=== PATIENT | male | born 1950 | race Caucasian/White ===

== ENCOUNTER 2018-05-08 13:06 | Emergency (ER) | payer MEDICARE, OTHER, SELFPAY ==
[2018-05-08 13:33] VITALS: BP 112/64; PULSE 89; RESP 12; TEMP 36.7; O2SAT 96
--- NOTE | 2018-05-08 14:40 | W.ED.GENAD ---
Discharge Plan Disposition Patient Disposition: HOME Condition: Stable Discharge Details Chief Complaint: Orthopedic Clinical Impression: Right knee sprain Primary Care Provider: Aliya Negron ED Provider: John Conte Home Meds and New Rx's Prescriptions: No Action oxybutynin chloride 5 MG tablet extended release 24hr 5 mg PO DAILY Qty: 30 RF: 2 lisinopril 20 MG tablet 20 mg PO DAILY RF: 0 multivitamin [Daily Multi-Vitamin] 1 EACH tablet 1 tab PO DAILY RF: 0 aspirin [Aspir-81] 81 MG tablet,delayed release (DR/EC) 81 mg PO DAILY RF: 0 ascorbic acid (vitamin C) [Vitamin C] 500 MG tablet 2 tab PO DAILY RF: 0 naproxen sodium [Aleve] 220 MG tablet 220 mg PO DAILY PRNRF: 0 cholecalciferol (vitamin D3) [Vitamin D3] 1,000 UNIT capsule 1 cap PO DAILY RF: 0 Discharge Instructions Instructions: Knee Sprain (ED) Additional Instructions: Please wear the hinged knee brace at any time that you are going to be performing activity and you may take sngm-gwj-ayqjxle pain medication as needed for discomfort. If not improving over the next 2 weeks please call orthopedic office for arrangement of follow-up appointment. Referrals: Armond Sanchez MD [ [facility] STAFF PHYSICIAN] - 2 weeks (if not improving) Discharge Data Discharge Date/Time-TO BE ENTERED AT DEPARTURE: 05/08/18 15:06 Medical Decision Making Patient presenting to the ED for CC of right knee pain. Patient reports that he was pushing a a wheel barrel of wood when he felt a pop in the back of his knee. Instantly he started having discomfort and painful gait/weightbearing. Physical exam shows tenderness to palpation of lateral posterior knee with painful response up into the hands otherwise physical exam shows no ligamentous laxity, no muscular mass or ecchymosis, no crepitus, and full range of motion and appropriate strength. Concern for knee sprain with regards to possible involvement of distal end of bicep femoris. Patient denies any blunt injury or trauma and there is no palpable deformity noted to the posterior thigh. Patient diagnosed with knee sprain and placed in a hinged knee brace and encouraged to rest for the next 2-3 days and then advance activity as tolerated. Patient to follow-up with orthopedist for reassessment. Patient states that she is seeing Dr. Sanchez in the past and prefers follow-up with him. Patient was not informed to call their office in 2 weeks if not improving. After discussion of diagnosis and plan of care patient has no further needs, questions, or concerns and states clear understanding to return to the emergency department for any worsening symptoms. HPI General Mode of arrival: ambulatory. Date/Time Provider Initiated Documentation: 05/08/18 13:42. Limitations to Documentation: no limitations. Information obtained by: patient. History of Present Illness 68 year old M presents to the emergency department with the chief complaint of right knee injury, described as moderate, with intensity rated at 5. Quality is described as aching, and is localized to the right and lower extremity. Patient proximal. Patient started experiencing this hour(s) (2) and it has been constant. No relieving factors improve symptom(s), No exacerbating factors reported . Patient notes no other symptoms.. Patient did receive the following treatments prior to arrival, none Related Data Home Medications Medication Instructions Recorded Confirmed ascorbic acid (vitamin C) [Vitamin 2 tab PO DAILY 03/09/14 05/08/18 C] aspirin [Aspir-81] 81 mg PO DAILY 03/09/14 05/08/18 lisinopril 20 mg PO DAILY 03/09/14 05/08/18 multivitamin [Daily Multi-Vitamin] 1 tab PO DAILY 03/09/14 05/08/18 naproxen sodium [Aleve] 220 mg PO DAILY PRN 03/09/14 05/08/18 cholecalciferol (vitamin D3) 1 cap PO DAILY 06/25/15 05/08/18 [Vitamin D3] oxybutynin chloride 5 mg PO DAILY #30 tab-cap 08/22/16 05/08/18 Allergies Allergy/AdvReac Type Severity Reaction Status Date / Time No Known Allergies Allergy Unverified 05/08/18 13:36 General Stated Complaint: Orthopedic SAIMA: 4 Review of Systems Constitutional Denies body ache(s), Denies chills and Denies fever(s) Cardiovascular Denies chest pain and Denies dyspnea Respiratory Denies dyspnea Musculoskeletal Reports as per HPI, Denies numbness, Denies stiffness and Denies tingling Neurologic Denies numbness and Denies tingling PFSH Medical History Erectile dysfunction History of prostate cancer Hyperlipidemia Hypertension Obesity (BMI 30-39.9) Social History Smoking/Tobacco Use Status: Former Tobacco Use Surgical History Colonoscopy - IV Sedation Exam Const General: cooperative, healthy appearing, comfortable and no acute distress Nutritional Appearance: average body habitus Orientation: alert, awake and oriented x3 Limitations: mental status not altered Resp Effort & Inspection: normal respiratory effort and able to speak in complete sentences Cardio Rate: regular rate Rhythm: regular rhythm Extrem Right lower extremity: normal capillary refill, no joint enlargement, hip/thigh Details: tenderness Location: of the mid upper leg Location: laterally; no swelling and knee Details: tenderness Location: of the popliteal fossa, normal ROM, knee ligament exam normal, Richard's Test Details: negative medially and laterally and Apley's Test Details: negative; no swelling; no edema Course Vital Signs Temperature 36.7 C 05/08/18 13:33 Pulse 89 05/08/18 13:33 Respiratory Rate 12 05/08/18 13:33 Blood Pressure 112/64 05/08/18 13:33 Pulse Oximetry 96 05/08/18 13:33 Temperature 36.7 C 05/08/18 13:33 Temperature Source Temporal Artery Scan 05/08/18 13:33 Pulse 89 05/08/18 13:33 Respiratory Rate 12 05/08/18 13:33 Respiratory Effort Non-Labored 05/08/18 13:35 Blood Pressure 112/64 05/08/18 13:33 Pulse Oximetry 96 05/08/18 13:33 Oxygen Delivery Method Room Air 05/08/18 13:33 Oxygen Flow Rate 0 05/08/18 13:33 Pain Level 8 05/08/18 13:33
--- NOTE | 2018-05-08 14:44 | ED.GENADUL_ITS ---
Discharge Plan Disposition Patient Disposition: HOME Condition: Stable Discharge Details Chief Complaint: Orthopedic Clinical Impression: Right knee sprain Primary Care Provider: Aliya Negron ED Provider: John Conte Home Meds and New Rx's Prescriptions: No Action oxybutynin chloride 5 MG tablet extended release 24hr 5 mg PO DAILY Qty: 30 RF: 2 lisinopril 20 MG tablet 20 mg PO DAILY RF: 0 multivitamin [Daily Multi-Vitamin] 1 EACH tablet 1 tab PO DAILY RF: 0 aspirin [Aspir-81] 81 MG tablet,delayed release (DR/EC) 81 mg PO DAILY RF: 0 ascorbic acid (vitamin C) [Vitamin C] 500 MG tablet 2 tab PO DAILY RF: 0 naproxen sodium [Aleve] 220 MG tablet 220 mg PO DAILY PRNRF: 0 cholecalciferol (vitamin D3) [Vitamin D3] 1,000 UNIT capsule 1 cap PO DAILY RF: 0 Discharge Instructions Instructions: Knee Sprain (ED) Additional Instructions: Please wear the hinged knee brace at any time that you are going to be performing activity and you may take wbgz-psf-kvgsnyh pain medication as needed for discomfort. If not improving over the next 2 weeks please call orthopedic office for arrangement of follow-up appointment. Referrals: Armond Sanchez MD [ [facility] STAFF PHYSICIAN] - 2 weeks (if not improving) Discharge Data Discharge Date/Time-TO BE ENTERED AT DEPARTURE: 05/08/18 15:06 Medical Decision Making Patient presenting to the ED for CC of right knee pain. Patient reports that he was pushing a a wheel barrel of wood when he felt a pop in the back of his knee. Instantly he started having discomfort and painful gait/weightbearing. Physical exam shows tenderness to palpation of lateral posterior knee with painful response up into the hands otherwise physical exam shows no ligamentous laxity, no muscular mass or ecchymosis, no crepitus, and full range of motion and appropriate strength. Concern for knee sprain with regards to possible involvement of distal end of bicep femoris. Patient denies any blunt injury or trauma and there is no palpable deformity noted to the posterior thigh. Patient diagnosed with knee sprain and placed in a hinged knee brace and encouraged to rest for the next 2-3 days and then advance activity as tolerated. Patient to follow-up with orthopedist for reassessment. Patient states that she is seeing Dr. Sanchez in the past and prefers follow-up with him. Patient was not informed to call their office in 2 weeks if not improving. After discussion of diagnosis and plan of care patient has no further needs, questions, or concerns and states clear understanding to return to the emergency department for any worsening symptoms. HPI General Mode of arrival: ambulatory . Date/Time Provider Initiated Documentation: 05/08/18 13:42 . Limitations to Documentation: no limitations . Information obtained by: patient . History of Present Illness 68 year old M presents to the emergency department with the chief complaint of right knee injury, described as moderate, with intensity rated at 5. Quality is described as aching, and is localized to the right and lower extremity. Patient proximal. Patient started experiencing this hour(s) (2) and it has been constant. No relieving factors improve symptom(s), No exacerbating factors reported . Patient notes no other symptoms.. Patient did receive the following treatments prior to arrival, none Related Data Home Medications Medication Instructions Recorded Confirmed ascorbic acid (vitamin C) [Vitamin 2 tab PO DAILY 03/09/14 05/08/18 C] aspirin [Aspir-81] 81 mg PO DAILY 03/09/14 05/08/18 lisinopril 20 mg PO DAILY 03/09/14 05/08/18 multivitamin [Daily Multi-Vitamin] 1 tab PO DAILY 03/09/14 05/08/18 naproxen sodium [Aleve] 220 mg PO DAILY PRN 03/09/14 05/08/18 cholecalciferol (vitamin D3) 1 cap PO DAILY 06/25/15 05/08/18 [Vitamin D3] oxybutynin chloride 5 mg PO DAILY #30 tab-cap 08/22/16 05/08/18 Allergies Allergy/AdvReac Type Severity Reaction Status Date / Time No Known Allergies Allergy Unverified 05/08/18 13:36 General Stated Complaint: Orthopedic SAIMA: 4 Review of Systems Constitutional Denies body ache(s), Denies chills and Denies fever(s) Cardiovascular Denies chest pain and Denies dyspnea Respiratory Denies dyspnea Musculoskeletal Reports as per HPI, Denies numbness, Denies stiffness and Denies tingling Neurologic Denies numbness and Denies tingling PFSH Medical History Erectile dysfunction History of prostate cancer Hyperlipidemia Hypertension Obesity (BMI 30-39.9) Social History Smoking/Tobacco Use Status: Former Tobacco Use Surgical History Colonoscopy - IV Sedation Exam Const General: cooperative, healthy appearing, comfortable and no acute distress Nutritional Appearance: average body habitus Orientation: alert, awake and oriented x3 Limitations: mental status not altered Resp Effort & Inspection: normal respiratory effort and able to speak in complete sentences Cardio Rate: regular rate Rhythm: regular rhythm Extrem Right lower extremity: normal capillary refill, no joint enlargement, hip/thigh Details: tenderness Location: of the mid upper leg Location: laterally; no swelling and knee Details: tenderness Location: of the popliteal fossa, normal ROM, knee ligament exam normal, Richard's Test Details: negative medially and laterally and Apley's Test Details: negative; no swelling; no edema Course Vital Signs Temperature 36.7 C 05/08/18 13:33 Pulse 89 05/08/18 13:33 Respiratory Rate 12 05/08/18 13:33 Blood Pressure 112/64 05/08/18 13:33 Pulse Oximetry 96 05/08/18 13:33 Temperature 36.7 C 05/08/18 13:33 Temperature Source Temporal Artery Scan 05/08/18 13:33 Pulse 89 05/08/18 13:33 Respiratory Rate 12 05/08/18 13:33 Respiratory Effort Non-Labored 05/08/18 13:35 Blood Pressure 112/64 05/08/18 13:33 Pulse Oximetry 96 05/08/18 13:33 Oxygen Delivery Method Room Air 05/08/18 13:33 Oxygen Flow Rate 0 05/08/18 13:33 Pain Level 8 05/08/18 13:33
== END 2018-05-08 15:06 | disposition home or self-care (01) ==
PROVIDERS: Emergency Provider Nurse Practitioner Family
DX: S83.8X1A Sprain of other specified parts of right knee, initial encounter (principal); X50.0XXA Overexertion from strenuous movement or load, initial encounter; I10 Essential (primary) hypertension
CPT/HCPCS: 29505; 99283; L1810

== ENCOUNTER 2019-01-27 13:53 | Outpatient (REF) | payer MEDICARE, OTHER, SELFPAY ==
[2019-01-27 15:18] LABS: Anion Gap 12.4 mmol/L (3-11); BUN 16 mg/dL (7-18); CO2 24.6 mmol/L (21.0-32.0); CREATININE 0.81 mg/dL (0.70-1.30); Calcium 9.2 mg/dL (8.5-10.1); Chloride 103 mmol/L (98-107); Glucose 82 mg/dL (70-100); Potassium 4.6 mmol/L (3.5-5.1); Sodium 140 mmol/L (136-145)
[2019-01-28 09:53] LABS: PSA, Diagnostic <0.1 ng/ml (0-6.5)
== END 2019-01-27 14:13 ==
LOC: NCHCN 13:53
PROVIDERS: PCP Internal Medicine; Visit Provider Internal Medicine
DX: I10 Essential (primary) hypertension (principal); Z85.46 Personal history of malignant neoplasm of prostate
CPT/HCPCS: 80048; 84153

== ENCOUNTER 2020-01-26 14:44 | Outpatient (REF) | payer MEDICARE, OTHER, SELFPAY ==
[2020-01-26 21:48] LABS: ALT 32 U/L (16-63); AST 23 U/L (15-37); Albumin 4.3 g/dL (3.4-5.0); Alkaline Phosphatase 84 U/L (46-116); Anion Gap 7.5 mmol/L (3-11); BUN 12 mg/dL (7-18); Bilirubin, Total 0.7 mg/dL (0.2-1.0); CO2 29.5 mmol/L (21.0-32.0); CREATININE 0.95 mg/dL (0.70-1.30); Calcium 9.4 mg/dL (8.5-10.1); Calculated LDL 133 mg/dL (<100); Chloride 102 mmol/L (98-107); Cholesterol 216 mg/dL (<200); Glucose 100 mg/dL (74-106); HDL Cholesterol 71 mg/dL (40-60); Potassium 5.5 mmol/L (3.5-5.1); Sodium 139 mmol/L (136-145); Total Protein 7.2 g/dL (6.4-8.2); Triglyceride 64 mg/dL (<150)
[2020-01-28 08:43] LABS: PSA, Screening <0.1 ng/mL (0.0-6.5)
== END 2020-01-26 15:04 ==
LOC: NCHCN 14:44
PROVIDERS: PCP Internal Medicine; Visit Provider Internal Medicine
DX: E78.5 Hyperlipidemia, unspecified (principal); I10 Essential (primary) hypertension; K62.7 Radiation proctitis; Z12.5 Encounter for screening for malignant neoplasm of prostate
CPT/HCPCS: 80053; 80061; 84153

== ENCOUNTER 2020-04-12 10:07 | Outpatient (REF) | payer MEDICARE, OTHER, SELFPAY ==
[2020-04-12 21:00] LABS: Calculated LDL 51 mg/dL (<100); Cholesterol 144 mg/dL (<200); HDL Cholesterol 82 mg/dL (40-60); Triglyceride 56 mg/dL (<150)
== END 2020-04-12 10:27 ==
LOC: NCHCN 10:07
PROVIDERS: PCP Internal Medicine; Visit Provider Internal Medicine
DX: E78.5 Hyperlipidemia, unspecified (principal)
CPT/HCPCS: 80061

== ENCOUNTER 2020-08-06 10:16 | Outpatient (REF) | payer MEDICARE, OTHER, SELFPAY ==
[2020-08-06 14:18] LABS: Potassium 4.3 mmol/L (3.5-5.1)
== END 2020-08-06 10:36 ==
LOC: NCHCN 10:16
PROVIDERS: PCP Internal Medicine; Visit Provider Internal Medicine
DX: E87.5 Hyperkalemia (principal)
CPT/HCPCS: 84132

== ENCOUNTER 2021-01-20 09:04 | Outpatient (REF) | payer MEDICARE, OTHER, SELFPAY ==
[2021-01-20 13:34] LABS: Anion Gap 13.6 mmol/L (3-11); BUN 14 mg/dL (7-18); CO2 23.4 mmol/L (21.0-32.0); CREATININE 0.8 mg/dL (0.70-1.30); Calcium 9.1 mg/dL (8.5-10.1); Chloride 102 mmol/L (98-107); Glucose 80 mg/dL (74-106); Potassium 4.8 mmol/L (3.5-5.1); Sodium 139 mmol/L (136-145)
[2021-01-20 21:53] LABS: PSA, Screening <0.1 ng/mL (0.0-6.5)
== END 2021-01-20 09:05 | disposition home or self-care (01) ==
LOC: NCHCN 09:04
PROVIDERS: PCP Internal Medicine; Visit Provider Internal Medicine
DX: I10 Essential (primary) hypertension (principal); Z85.46 Personal history of malignant neoplasm of prostate
CPT/HCPCS: 80048; 84153

== ENCOUNTER → 2022-02-06 00:52 | Outpatient (CLI) | payer MEDICARE, OTHER, SELFPAY ==
--- NOTE | 2022-02-06 | DI.US_ITS ---
Exam(s) US RENAL EXAM: US RENAL CLINICAL HISTORY: HX HEMATURIA, Z87.448, HEMATURIA, R31.9, PROSTATE CA HX, Z85.46. TECHNIQUE: Boo scale, color and spectral Doppler were used. FINDINGS: Renal size in cm: Right: 10.5 left: 11.7 Echogenicity: Normal Hydronephrosis: No Cyst or mass: No Nephrolithiasis: No Bladder:Normal Prevoid vol:217 cc Postvoid vol:5 cc Prostate not visualized. IMPRESSION: No evidence of hydronephrosis, renal calculi or mass. DATA REPOSITORY:
== END ==
PROVIDERS: PCP Internal Medicine; Visit Provider Nurse Practitioner Family
DX: R39.11 Hesitancy of micturition (principal); Z85.46 Personal history of malignant neoplasm of prostate; Z87.448 Personal history of other diseases of urinary system
CPT/HCPCS: 76770

== ENCOUNTER → 2022-02-27 09:05 | Outpatient (BNVA) | payer MEDICARE, OTHER, SELFPAY | PROVIDERS: PCP Internal Medicine; Referring Provider Internal Medicine; Visit Provider Nurse Practitioner Gerontology | DX: R31.0 Gross hematuria (principal); R39.11 Hesitancy of micturition; R32 Unspecified urinary incontinence; Z85.46 Personal history of malignant neoplasm of prostate | CPT/HCPCS: 81003; 99205 ==

== ENCOUNTER 2022-02-28 09:42 | Outpatient (REF) | payer MEDICARE, OTHER, SELFPAY ==
[2022-02-28 14:50] LABS: Abs Immature Grans 0.01 10^3/uL (0.0-0.06); Absolute Basophil Count 0.08 10^3/uL (0.0-0.2); Absolute Eosinophil Count 0.24 10^3/uL (0.0-0.7); Absolute Lymphocyte Count 0.93 10^3/uL (1.2-3.4); Absolute Monocyte Count 0.61 10^3/uL (0.1-0.8); Absolute Neutrophil Count 2.95 10^3/uL (1.2-6.7); Basophils % 1.7; HCT 44.7 % (40.0-50.0); HGB 14.9 g/dL (13.5-17.5); Immature Grans % 0.2; Lymphocytes % 19.3; MCH 32.3 pg (27.0-33.0); MCHC 33.3 % (32.0-36.0); MCV 97 fL (80-95); MPV 10.7 fL (8.0-11.0); Monocytes % 12.7; Neutrophils % 61.1; Platelet Count 161 10^3/uL (130-400); RBC 4.62 10^6/uL (4.36-5.78); RDW 14.5 % (11.8-14.1); RDW-SD 51.4 fL; WBC 4.82 10^3/uL (4.4-10.8)
[2022-02-28 15:05] LABS: Anion Gap 11.7 mmol/L (3-11); BUN 20 mg/dL (7-18); CO2 24.3 mmol/L (21.0-32.0); CREATININE 0.7 mg/dL (0.70-1.30); Calcium 8.8 mg/dL (8.5-10.1); Chloride 103 mmol/L (98-107); Glucose 88 mg/dL (74-106); Potassium 5.2 mmol/L (3.5-5.1); Sodium 139 mmol/L (136-145)
[2022-02-28 23:29] LABS: PSA, Screening <0.1 ng/mL (<=6.5)
== END 2022-02-28 09:43 | disposition home or self-care (01) ==
LOC: NCHCN 09:42
PROVIDERS: PCP Internal Medicine; Visit Provider Internal Medicine
DX: I10 Essential (primary) hypertension (principal); Z85.46 Personal history of malignant neoplasm of prostate; R31.9 Hematuria, unspecified; F34.1 Dysthymic disorder; F10.10 Alcohol abuse, uncomplicated; Z12.5 Encounter for screening for malignant neoplasm of prostate
CPT/HCPCS: 80048; 84153; 85025

== ENCOUNTER 2022-03-14 14:41 | Outpatient (REF) | payer MEDICARE, OTHER, SELFPAY ==
[2022-03-14 13:40] LABS: Source Nasal/Nares
[2022-03-14 15:41] LABS: COVID-19 PCR Negative (Negative)
== END 2022-03-14 14:42 | disposition home or self-care (01) ==
LOC: LBN 14:41
PROVIDERS: PCP Internal Medicine; Visit Provider Urology
DX: Z20.822 Contact with and (suspected) exposure to COVID-19 (principal)
CPT/HCPCS: 87635

== ENCOUNTER 2022-03-16 07:47 | Day surgery (SDC) | payer MEDICARE, OTHER, SELFPAY ==
[2022-03-16 08:06] VITALS: BP 159/83; PULSE 66; RESP 16; TEMP 36.6; O2SAT 99
[2022-03-16] MEDS: Lactated Ringers 1,000 ML 80 ML IV (08:34)
--- NOTE | 2022-03-16 08:54 | W.ANESPOSTOP ---
Postoperative Evaluation Date, Time and Location Date Performed: 03/16/22 Time Performed: 08:55 Patient Location: Day Surgery Unit Vital Signs Most Recent Imported Vital Signs: Most Recent Vital Signs Temp Pulse Resp BP Pulse Ox 36.6 C 66 16 159/83 H 99 03/16/22 08:06 03/16/22 08:06 03/16/22 08:06 03/16/22 08:06 03/16/22 08:06 Pain Score Most Recent Pain Score: Most Recent Pain Score Pain Level 0 03/16/22 08:06 Assessment Mental Status: Awake (Alert & Oriented to Patient Baseline) Airway and Respiratory Function: Patent airway with normal (patient baseline) respiratory exam Cardiovascular Function: Hemodynamically Stable Hydration Status: Adequately Hydrated Nausea & Vomiting: No Nausea or Vomiting Pain: Pt. Denies Any Pain Peripheral Nerve Block: Patient did not receive a nerve block Postoperative Comments:: did not convey PHYLLIS PRE op will add to problem list
--- NOTE | 2022-03-16 09:37 | W.PM.HP.N ---
Date of service: 03/16/22 Time of Service: 09:50 Assessment and Plan Assessment and plan (1) Hematuria: Status: Acute (2) Prostate cancer: Status: Chronic Assessment and plan: We will complete his hematuria work-up with a cystoscopy and retrograde pyelogram. We will be prepared to evacuate any clots in the bladder or resect any suspicious lesions. History of Present Illness History of Present Illness Chief Complaint: Hematuria Narrative: This is a 72-year-old gentleman who has a history of prostate cancer. He was treated with external beam radiation. He has had no signs of recurrence based on PSA levels. He has had intermittent gross hematuria. He had a negative hematuria work-up about 6 years ago. 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 He recently had an episode of gross hematuria with clots. The hematuria has subsequently subsided. He has been evaluated with a renal ultrasound which showed no kidney abnormalities. He presents now for cystoscopy and bilateral retrograde pyelogram with possible transurethral resection of any visible bladder or prostate lesion. Review of Systems Narrative: No fevers or chills Wears glasses. No vision change or dysphasia No diabetes or thyroid No shortness of breath, cough or hemoptysis No chest pain or palpitations No nausea, vomiting, hepatitis, ulcers, jaundice No seizures, strokes or peripheral neuropathy No bleeding disorders or anemia Arthralgia and chronic back pain. No gout PFSH All Active Problems Prostate cancer (Chronic) Situational anxiety (Acute) Dysthymia (Acute) Generalized social phobia (Acute) Alcohol abuse (Chronic) Chronic back pain (Acute) Sleep disturbance (Acute) Urinary incontinence (Acute) Rotator cuff syndrome (Acute) Nocturnal leg cramps (Acute) Memory impairment (Acute) Orthostasis (Acute) Hematuria (Acute) Urinary hesitancy (Acute) Screening for colorectal cancer (Acute) Medical History Erectile dysfunction History of prostate cancer Hyperlipidemia Hypertension Obesity (BMI 30-39.9) Surgical History Colonoscopy - IV Sedation Social History Smoking/Tobacco Use Status: Former Tobacco Use Quit Date: 07/23/68 Smoking risk assessment performed?: Yes Alcohol Intake: current Alcohol Intake frequency: 3 or more drinks per day Drug use: Never Substance use type: does not use Do you feel safe at home: Yes Do you feel safe in your relationship?: Yes Meds Allergies and Home Medications Allergies Allergy/AdvReac Type Severity Reaction Status Date / Time No Known Allergies Allergy Unverified 03/16/22 07:59 Home Medications Medication Instructions Recorded Confirmed Type aspirin 81 mg tablet,delayed 81 mg PO DAILY 03/09/14 03/16/22 History release (Aspir-) multivitamin (Daily Multi-Vitamin 1 tab PO DAILY 03/09/14 03/16/22 History tablet) naproxen sodium 220 mg tablet 220 mg PO DAILY PRN 03/09/14 03/16/22 History (Aleve) cholecalciferol (vitamin D3) 25 1 cap PO DAILY 06/25/15 03/16/22 History mcg (1,000 unit) capsule (Vitamin D3) atorvastatin 20 mg tablet 20 mg PO HS 02/09/22 03/16/22 History downiay-iqyudzsjg-utje tablet 1 tab PO QDAY 02/09/22 03/16/22 History oxybutynin chloride 10 mg 10 mg PO DAILY 02/09/22 03/16/22 History tablet,extended release 24 hr triamcinolone acetonide 0.1 % 1 applic topical BID 02/09/22 03/16/22 History topical cream lisinopril 20 mg tablet 20 mg PO HS 02/27/22 03/16/22 History mirabegron 50 mg tablet,extended 50 mg PO DAILY #28 tabs 02/27/22 03/16/22 Rx release 24 hr (Myrbetriq) Exam Const General: cooperative Neck Neck: supple Resp Effort & Inspection: normal respiratory effort Auscultation: clear to auscultation bilaterally Cardio Rate: regular rate Rhythm: regular rhythm GI Palpation: soft and no masses Neuro General: patient alert, patient awake and patient oriented x3 Results Last Vital Signs Temp 36.6 C 03/16/22 08:06 Pulse 66 03/16/22 08:06 Resp 16 03/16/22 08:06 BP 159/83 H 03/16/22 08:06 Pulse Ox 99 03/16/22 08:06
--- NOTE | 2022-03-16 09:55 | W.ANESPRE ---
General Info Date of Service Date Performed: 03/16/22 Height: 5 ft 8 in Weight: 95 kg Body Mass Index (BMI): 31.8 Surgical Procedure: Operation Date: 03/16/22 09:55 Proposed Procedure Side Surgeon p Cysto/B/L Retrograde/? Transurethral Resection Bladder Tumor or Clot Evac Harvinder Hudson MD Meds Allergies and Home Medications Allergies Allergy/AdvReac Type Severity Reaction Status Date / Time No Known Allergies Allergy Unverified 03/16/22 07:59 Home Medication Medication Instructions Recorded aspirin 81 mg tablet,delayed 81 mg PO DAILY 03/09/14 release (Aspir-) multivitamin (Daily Multi-Vitamin 1 tab PO DAILY 03/09/14 tablet) naproxen sodium 220 mg tablet 220 mg PO DAILY PRN 03/09/14 (Aleve) cholecalciferol (vitamin D3) 25 1 cap PO DAILY 06/25/15 mcg (1,000 unit) capsule (Vitamin D3) atorvastatin 20 mg tablet 20 mg PO HS 02/09/22 paccodp-yebrddbjs-lrjx tablet 1 tab PO QDAY 02/09/22 oxybutynin chloride 10 mg 10 mg PO DAILY 02/09/22 tablet,extended release 24 hr triamcinolone acetonide 0.1 % 1 applic topical BID 02/09/22 topical cream lisinopril 20 mg tablet 20 mg PO HS 02/27/22 mirabegron 50 mg tablet,extended 50 mg PO DAILY #28 tabs 02/27/22 release 24 hr (Myrbetriq) Current Visit Medications: Current Medications Generic Name Dose Route Start Last Admin Trade Name Freq PRN Reason Stop Dose Admin Ringer's Solution 1,000 mls @ 80 mls/hr 03/16/22 06:00 03/16/22 08:34 IV 04/14/22 23:59 80 mls/hr INFUSION ELEANOR Administration Cefazolin Sodium/Dextrose 2 gm in 50 mls @ 100 mls/hr 03/16/22 06:00 Ancef Duplex IVPB 03/16/22 16:00 PREOP ELEANOR IV Miscellaneous Supplies 1 each 03/16/22 06:00 Iv Access IV 04/14/22 23:59 DIRECTED ELEANOR Sodium Chloride 0 ml 03/16/22 06:00 Normal Saline Flush 10 Ml Syr IV 04/14/22 23:59 PRN PRN Sodium Chloride 0 ml 03/16/22 06:00 Normal Saline 10 Ml Vial IJ 04/14/22 23:59 DIRECTED PRN Sterile Water 0 ml 03/16/22 06:00 Water,Injection,Sterile 10 Ml Vial IJ 04/14/22 23:59 DIRECTED PRN PFSH Active Problems Active Problems: Problem Status Onset Code Prostate cancer C61 Situational anxiety F41.8 Dysthymia F34.1 Generalized social phobia 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 Alcohol abuse F10.10 Chronic back pain M54.9, G89.29 Sleep disturbance G47.9 Urinary incontinence R32 Rotator cuff syndrome M75.100 Nocturnal leg cramps G47.62 Memory impairment R41.3 Orthostasis I95.1 Hematuria R31.9 Urinary hesitancy R39.11 Screening for colorectal cancer Z12.11, Z12.12 Medical History Medical History Erectile dysfunction History of prostate cancer Hyperlipidemia Hypertension Obesity (BMI 30-39.9) Surgical History Surgical History Colonoscopy - IV Sedation Tobacco Smoking/Tobacco Use Status: Former Tobacco Use Alcohol Alcohol Intake: current Alcohol intake frequency: 3 or more drinks per day Substance Use Substance use: Never Substance use type: does not use Vital Signs and Lab Results Vital Signs Most Recent Vital Signs in EMR: Most Recent Vital Signs Temp Pulse Resp BP Pulse Ox 36.6 C 66 16 159/83 H 99 03/16/22 08:06 03/16/22 08:06 03/16/22 08:06 03/16/22 08:06 03/16/22 08:06 Lab Results Blood Type / Crossmatch: No Data to Display Complete Blood Count: White Blood Count 4.82 10^3/uL (4.4-10.8) 02/28/22 09:15 Red Blood Count 4.62 10^6/uL (4.36-5.78) 02/28/22 09:15 Hemoglobin 14.9 g/dL (13.5-17.5) 02/28/22 09:15 Hematocrit 44.7 % (40.0-50.0) 02/28/22 09:15 Platelet Count 161 10^3/uL (130-400) 02/28/22 09:15 Complete Metabolic Panel: Sodium Level 139 mmol/L (136-145) 02/28/22 09:15 Potassium Level 5.2 mmol/L (3.5-5.1) H 02/28/22 09:15 Chloride Level 103 mmol/L (98-107) 02/28/22 09:15 Carbon Dioxide Level 24.3 mmol/L (21.0-32.0) 02/28/22 09:15 Blood Urea Nitrogen 20 mg/dL (7-18) H 02/28/22 09:15 Creatinine 0.7 mg/dL (0.70-1.30) 02/28/22 09:15 Estimated GFR/1.73 m2 >= 60.00 (mL/min/1.73m2) 02/28/22 09:15 Calcium Level 8.8 mg/dL (8.5-10.1) 02/28/22 09:15 Glucose Level 88 mg/dL (74-106) 02/28/22 09:15 Liver Function Panel: No Data to Display Coagulation Panel: No Data to Display Cardiac Panel: No Data to Display Arterial Blood Gas: No Data to Display Venous Blood Gas: No Data to Display Pancreas Panel: No Data to Display Thyroid Panel: No Data to Display Infectious Disease: Coronavirus (COVID-19)(PCR) Negative (Negative) 03/14/22 10:50 Coronavirus 2019 Source Nasal/Nares 03/14/22 10:50 Blood Cultures: No Data to Display Toxicology Panel: No Data to Display Anesthesia Assessment and Plan Anesthesia History Personal History: No History of Anesthesia Complications Family History: No Family History of Anesthesia Complications Exercise Tolerance Exercise Tolerance: Metabolic Equivalents>4 Pertinent Negatives Pertinent Negatives: No Symptoms of GERD, No Major Cardiovascular Symptoms or Complaints, No Major Pulmonary Symptoms or Complaints (Quit smoking 50 years ago) and No History of CVA/TIA Cardiac & Pulmonary Exam Cardiac Exam: Normal S1/S2 Heart Sounds Pulmonary Exam: Clear Bilateral Breath Sounds Implantable Cardiac Device Does patient have a Pacemaker or an ICD?: No Airway Exam Known Difficult Airway: No Mallampati Class: 1 Mouth Opening: Normal (> 3cm) Thyromental Distance: Greater than 3 cm Facial Hair: Full Horan Neck Range of Motion: Full ROM Neck Circumference: Normal Teeth Condition: Normal Dentition ASA Classification ASA Score: ASA 2 Emergency Case?: No NPO Status NPO Status: NPO Clears >2 hours, Solids >8 hours Anesthesia Plan Resuscitation Status: Full Code Anesthesia Technique: General Anesthesia Airway Planned: Natural Airway Monitors Used: Standard Monitors
[2022-03-16 09:58] VITALS: BMI 31.8
[2022-03-16] MEDS: ceFAZolin 2 GM/50 ML BAG IVPB (10:20)
[2022-03-16] MEDS: Lidocaine 2% Jelly 6 ML SYR (10:27)
--- NOTE | 2022-03-16 10:42 | W.PM.DSUDISC ---
Discharge Plan Disposition Patient Disposition: HOME Condition: Good Discharge Details Reason For Visit: hematuria Attending Provider: Harvinder Hudson Primary Care Provider: Mateusz Umana Home Meds and New Rx's Prescriptions: No Action lisinopril 20 mg tablet 20 mg PO HS Myrbetriq 50 mg tablet extended release 24 hr 50 mg PO DAILY Qty: 28 0RF Rx Instructions: samples triamcinolone acetonide 0.1 % cream 1 applic topical BID oxybutynin chloride 10 mg tablet extended release 24hr 10 mg PO DAILY Hold Instructions: Home Medication placed on hold at Doctor's office [id number]-[id number]-[id number] Tablet 1 tab PO QDAY atorvastatin 20 mg tablet 20 mg PO HS multivitamin [Daily Multi-Vitamin] 1 EACH tablet 1 tab PO DAILY aspirin [Aspir-81] 81 MG tablet,delayed release (DR/EC) 81 mg PO DAILY naproxen sodium [Aleve] 220 MG tablet 220 mg PO DAILY PRN cholecalciferol (vitamin D3) [Vitamin D3] 1,000 UNIT capsule 1 cap PO DAILY Discharge Instructions Additional Instructions: followup yearly for UA (can be with us or with PCP) Activity:: Activity as Tolerated Shower/Bathe:: 24 hours Diet:: As Tolerated Discharge Orders Discharge Orders: Discharge Order (Routine); Ordered 03/16/22 Ordered By: Harvinder Hudson DS: Diagnosis Discharge Diagnosis (1) Hematuria: Status: Acute (2) Prostate cancer: Status: Chronic
--- NOTE | 2022-03-16 10:44 | W.PM.OP ---
Date of service: 03/16/22 Time of Service: 10:45 Operative Note Operative Note DATE OF PROCEDURE: 03/16/22 PRE-OP DIAGNOSIS: Hematuria radiation cystitis PROCEDURE: cystoscopy with bilateral retrograde pyelograms SURGEON: Harvinder Hudson ANESTHESIA TYPE: General:No Airway Refer to Anesthesia Record ESTIMATED BLOOD LOSS: 5 PATHOLOGY: none sent COMPLICATIONS: None Patient was transported to: same day Patient's condition: stable Implants: none Indications: Patient is a 72-year-old gentleman who has a history of prostate cancer. He was treated with external beam radiation. He has a history of gross hematuria. 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 He recently had another episode of gross hematuria with clots. He had a renal ultrasound which showed no significant upper tract disease. He presents for cystoscopy with retrograde pyelogram to complete his hematuria work-up Findings: Pale bladder mucosa with prominent blood vessels consistent with radiation cystitis Procedure Description: Patient was brought to the operating room on 03/16/2022. He was given preoperative antibiotics. After successful induction of general anesthesia, he was placed in the dorsal lithotomy position. Genitalia was prepped and draped. 2% Xylocaine jelly was instilled into the urethra to act as a local anesthetic. A 22 [place] rigid cystoscope was passed through the urethra into the bladder. The urethra and bladder were inspected with a 30 degree lens. The pendulous, bulbar and membranous urethra's appeared to have paler than expected mucosa but no strictures were identified. The prostatic urethra showed some lateral lobe enlargement with prominent blood vessels but no active bleeding. The bladder neck was entered and the bladder mucosa was inspected. The bladder mucosa was also pale with some prominent blood vessels especially towards the bladder neck. No clots were seen within the bladder and no active bleeding was seen from any of the blood vessels. Both ureteral orifices appeared a bit stenotic but were in normal location. No blood was seen coming from either side. No papillary or nodular lesions were seen in the lumen of the bladder. Each ureteral orifice was then cannulated with a 5 Argentine access catheter. Retrograde pyelograms were obtained by injecting Omnipaque through the access catheter under fluoroscopic guidance. Both ureters and collecting systems appeared normal with no filling defects. Both sides drained promptly on a 5-minute drainage film. The bladder was reinspected with a 70 degree lens. The absence of papillary or nodular lesions within the bladder was confirmed.
--- NOTE | 2022-03-16 10:55 | DI.RAD_ITS ---
Exam(s) XR RETROGRADE IN OR EXAM: XR RETROGRADE IN OR CLINICAL HISTORY: Hematuria, PROSTATE CANCER TECHNIQUE: 2D and realtime digital imaging was performed. COMPARISON: No exams were available for comparison FINDINGS: C-arm fluoroscopy was utilized by onduring bilateral retrograde ureterography . Please see Dr. Hudson procedure note. IMPRESSION: RADIATION DOSE DELIVERED: rufino Irvin=11.2 mGy
[2022-03-16 10:56] VITALS: BP 108/65; PULSE 82; RESP 20; TEMP 36.2; O2SAT 97
--- NOTE | 2022-03-16 10:58 | W.ANESPOSTOP ---
Postoperative Evaluation Date, Time and Location Date Performed: 03/16/22 Time Performed: 10:58 Patient Location: Day Surgery Unit Vital Signs Most Recent Imported Vital Signs: Most Recent Vital Signs Temp Pulse Resp BP Pulse Ox 36.6 C 66 16 159/83 H 99 03/16/22 08:06 03/16/22 08:06 03/16/22 08:06 03/16/22 08:06 03/16/22 08:06 Most Recent Vital Signs Temp Pulse Resp BP Pulse Ox 36.6 C 66 16 159/83 H 99 03/16/22 08:06 03/16/22 08:06 03/16/22 08:06 03/16/22 08:06 03/16/22 08:06 Most Recent Manually Entered Vital Signs: Adult Blood Pressure: 108/65 Heart Rate: 82 Respirations: 12 Oxygen Saturation (%): 99 Temperature (C): 36.3 C Pain Score (0-10 Scale): 0 Pain Score Most Recent Pain Score: Most Recent Pain Score Pain Level 0 03/16/22 08:06 Assessment Mental Status: Awake (Alert & Oriented to Patient Baseline) Airway and Respiratory Function: Patent airway with normal (patient baseline) respiratory exam Cardiovascular Function: Hemodynamically Stable Hydration Status: Adequately Hydrated Nausea & Vomiting: No Nausea or Vomiting Pain: Pt. Denies Any Pain Peripheral Nerve Block: Patient did not receive a nerve block
[2022-03-16 10:59] VITALS: BP 108/65; PULSE 82; RESP 12; TEMPC 36.3; O2SAT 99
[2022-03-16] MEDS: Phenazopyridine 200 MG TAB PO (11:12)
[2022-03-16 11:30] VITALS: BP 122/70; PULSE 60; RESP 18; TEMP 36.1; O2SAT 97
--- NOTE | 2022-03-20 14:18 | ANES_ITS ---
Date of service: 03/20/22 Time of Service: 14:18 Anesthesia Note Report Anesthesia Note: vocational technical education director talked to patient who said that he went home after his surgery and has had multiple episodes of complete left arm numbness/tingling lasting from a few minutes to several hours. He denies any associated symptoms to include chest pain/pressure, n/v, SOB, headache, diaphoresis. He states he did not have this prior to his surgery last . Given the very general multi nerve distribution of this complaint as well as being intermittent, I explained that I do not feel this is from arm positioning during surgery, however agree that this should be worked up to see if this is nerve related, vascular, or some other cause. He has an appointment tomorrow with his PCP.
== END 2022-03-16 11:45 | disposition home or self-care (01) ==
PROVIDERS: PCP Internal Medicine; Visit Provider Urology
PROC: 0TBB8ZZ Excision of Bladder, Via Natural or Artificial Opening Endoscopic (ICD-10-PCS; CPT 52005; principal; 2022-03-16 09:45)
DX: N30.41 Irradiation cystitis with hematuria (principal); Y84.2 Radiological procedure and radiotherapy as the cause of abnormal reaction of the patient, or of later complication, without mention of misadventure at the time of the procedure; Z85.46 Personal history of malignant neoplasm of prostate
CPT/HCPCS: 52005; 74420; J0131; J0690; J1100; J1885; J2250; J2405

== ENCOUNTER → 2022-03-23 10:36 | Outpatient (BNVA) | payer MEDICARE, OTHER, SELFPAY | PROVIDERS: PCP Internal Medicine; Referring Provider Internal Medicine; Visit Provider Nurse Practitioner Gerontology | DX: R31.0 Gross hematuria (principal); R32 Unspecified urinary incontinence; Z85.46 Personal history of malignant neoplasm of prostate | CPT/HCPCS: 99214 ==

== ENCOUNTER 2023-04-12 20:31 | Outpatient (REF) | payer MEDICARE, SELFPAY ==
[2023-04-12 18:04] LABS: HCT 44.3 % (40.0-50.0); HGB 15.3 g/dL (13.5-17.5); MCH 33.6 pg (27.0-33.0); MCHC 34.5 % (32.0-36.0); MCV 97 fL (80-95); MPV 11.9 fL (8.0-11.0); Platelet Count 231 10^3/uL (130-400); RBC 4.55 10^6/uL (4.36-5.78); RDW 14.4 % (11.8-14.1); RDW-SD 51.6 fL; WBC 5.96 10^3/uL (4.4-10.8)
[2023-04-12 18:08] LABS: Prothrombin Time 9.9 sec (9.3-11.0)
[2023-04-12 18:19] LABS: ALT 884 U/L (16-63); AST 579 U/L (15-37); Albumin 3.7 g/dL (3.4-5.0); Alkaline Phosphatase 1363 U/L (46-116); Anion Gap 14.4 mmol/L (3-11); BUN 18 mg/dL (7-18); Bilirubin, Total 6.8 mg/dL (0.2-1.0); CO2 21.6 mmol/L (21.0-32.0); CREATININE 0.8 mg/dL (0.70-1.30); Calcium 9.8 mg/dL (8.5-10.1); Chloride 97 mmol/L (98-107); Estimated GFR 92.87 (mL/min/1.73m2); Glucose 87 mg/dL (74-106); Lipase 71 U/L (16-77); Potassium 4.6 mmol/L (3.5-5.1); Sodium 133 mmol/L (136-145); Total Protein 7.4 g/dL (6.4-8.2)
[2023-04-13 19:20] LABS: PSA, Screening <0.1 ng/mL (<=6.5)
== END 2023-04-12 20:32 | disposition home or self-care (01) ==
LOC: NCHCN 20:31
PROVIDERS: PCP Internal Medicine; Visit Provider Internal Medicine
DX: R17 Unspecified jaundice (principal); I10 Essential (primary) hypertension; Z85.46 Personal history of malignant neoplasm of prostate
CPT/HCPCS: 80053; 83690; 84153; 85027; 85610

== ENCOUNTER → 2023-04-17 01:23 | Outpatient (CLI) | payer MEDICARE, SELFPAY ==
--- NOTE | 2023-04-17 09:21 | DI.US_ITS ---
Exam(s) US ABDOMEN EXAM: US ABDOMEN CLINICAL HISTORY: JAUNDICE,R17 TECHNIQUE: Ultrasound abdomen performed using standard protocol. COMPARISON: US RENAL ULTRASOUND(P) from 07/07/2016 US US RENAL from 02/06/2022 FINDINGS: ABDOMINAL AORTA AND IVC: Cannot be visualized due to overlying bowel gas. PANCREAS: Obscured by overlying bowel gas. LIVER: Normal. Hepatopedal flow in the Portal Vein. GALLBLADDER:No evidence of cholelithiasis. No evidence of wall thickening. No pericholecystic fluid i dentified. There is layering echogenic open gross debris??? seen in the dependent gallbladder. It do es not persist on all images. Head may represent sludge versus artifact. BILIARY SYSTEM: Common bile duct measures < 7 mm. No intrahepatic biliary ductal dilation. GUEVARA'S SIGN: Negative. KIDNEYS: Kidneys are symmetric in size. No evidence of renal calculi. No evidence of hydronephrosis. No renal mass or cyst identified. SPLEEN: Not enlarged. ASCITES: None seen. IMPRESSION: 1. Examination limited by overlying bowel gas. 2. Sludge versus artifact in the gallbladder. No cholelithiasis or biliary ductal dilatation. 3. If there is continued clinical concern a CT scan or MRI of the abdomen should be considered for fu rther evaluation. DATA REPOSITORY:
== END ==
PROVIDERS: PCP Internal Medicine; Visit Provider Internal Medicine
DX: J17 Pneumonia in diseases classified elsewhere (principal)
CPT/HCPCS: 76700

== ENCOUNTER → 2023-04-20 00:59 | Outpatient (CLI) | payer MEDICARE, SELFPAY ==
--- NOTE | 2023-04-20 | DI.CT_ITS ---
Exam(s) CT ABDOMEN PELVIS W EXAM: CT ABDOMEN PELVIS W CLINICAL HISTORY: HEPATITIS, K75.9, JAUNDICE, R17 TECHNIQUE: Imaging Protocol: Axial computed tomography images with coronal and sagittal reformatted images were created and reviewed CONTRAST MATERIAL: Intravenous: Omnipaque 350 Contrast volume:100 mL Oral: Yes COMPARISON: US US ABDOMEN from 04/17/2023 FINDINGS: ABDOMEN: Lung Bases: Coronary artery calcification is present. Liver: Normal density. No hepatic mass is seen. There is decreased attenuation of the liver suggesti ng fatty infiltration. Portal, Superior Mesenteric, and Splenic Veins: Unremarkable. Gallbladder and Biliary Tract: No cholelithiasis. The gallbladder is mildly distended. There is int ra and extrahepatic biliary ductal dilatation with normal caliber bile duct in the pancreatic head. Pancreas: No definite evidence of a pancreatic head mass is seen at this time. Spleen: Normal. Adrenals: No masses seen. Kidneys: Normal size, contour and axis. No radiodense stones or obstructive uropathy. No masses seen. Abdominal Aorta: Abdominal portion non-dilated. Atherosclerosis. Bowel: No obstruction or bowel wall thickening. Appendix is unremarkable. Peritoneal Cavity: No ascites, collection or mesenteric inflammatory response. No free air. Lymph Nodes: Within normal limits. Bones: Within normal limits for the patient's age. Soft Tissues: There are small fat containing bilateral inguinal hernias. PELVIS: Bladder: Symmetric distention, no gross wall thickening. Reproductive Organs: Prostate seeds are present. Lymph Nodes: Within normal limits. Bones: Within normal limits for the patient's age. IMPRESSION: 1. Intra and extrahepatic biliary ductal dilatation to the level of the pancreatic head without evide nce of a discrete pancreatic mass on this examination. MRI/MRCP is recommended for further evaluatio n. 2. No evidence of a hepatic mass. RADIATION DOSE DELIVERED: 1,574.39mGy.cm Total DLP DATA REPOSITORY: All CT scans at this facility are submitted to the National Radiology Data Registry (NRDR) Dose Index Registry (DIR) with the [employer] (ACR). RADIATION OPTIMIZATION: All CT scans at this facility use at least one of these dose optimization te chniques: automated exposure control; mA and/or kV adjustment per patient size (includes targeted exa ms where dose is matched to clinical indication); or iterative reconstruction.
[2023-04-20] MEDS: Normal Saline - Diluent 50 ML VIAL IJ (11:54)
[2023-04-20] MEDS: Omnipaque 350 MG/ML 500 ML BTL-Imaging package 100 ML IJ (11:55)
[2023-04-20] MEDS: Normal Saline Flush 10 ML SYR IVP (11:56)
[2023-04-20] MEDS: Barium Sulfate 2% W/V-Berry Smoothie 450 ML BTL 900 ML PO (12:07)
== END ==
PROVIDERS: PCP Internal Medicine; Visit Provider Internal Medicine
DX: K83.8 Other specified diseases of biliary tract (principal)
CPT/HCPCS: 74177

== ENCOUNTER 2023-04-30 15:05 | Outpatient (REF) | payer MEDICARE, SELFPAY ==
[2023-04-30 20:53] LABS: HCT 39.5 % (40.0-50.0); HGB 13.8 g/dL (13.5-17.5); MCH 32.6 pg (27.0-33.0); MCHC 34.9 % (32.0-36.0); MCV 93 fL (80-95); MPV 12.9 fL (8.0-11.0); Platelet Count 240 10^3/uL (130-400); RBC 4.23 10^6/uL (4.36-5.78); RDW 18.3 % (11.8-14.1); WBC 6.47 10^3/uL (4.4-10.8)
[2023-04-30 21:08] LABS: ALT 232 U/L (16-63); AST 150 U/L (15-37); Albumin 2.9 g/dL (3.4-5.0); Alkaline Phosphatase 757 U/L (46-116); Anion Gap 9.4 mmol/L (3-11); BUN 17 mg/dL (7-18); CO2 26.6 mmol/L (21.0-32.0); Chloride 98 mmol/L (98-107); Estimated GFR 78.98 (mL/min/1.73m2); Glucose 108 mg/dL (74-106); Lipase 90 U/L (16-77); Potassium 4.3 mmol/L (3.5-5.1); Sodium 134 mmol/L (136-145); Total Protein 6.4 g/dL (6.4-8.2)
[2023-04-30 21:13] LABS: Calcium 9.3 mg/dL (8.5-10.1)
[2023-05-03 08:11] LABS: HBs Antibody, Quant <3.1 mIU/mL (See Note); Hepatitis B Surface Ab Negative (See Note)
[2023-05-03 08:58] LABS: Hep B Core Antibody Negative (Negative)
[2023-05-03 09:37] LABS: Hep A Total Ab w Rflx IgM Positive (Negative)
[2023-05-03 11:19] LABS: Hep A Antibody IgM Negative (Negative)
== END 2023-04-30 15:06 | disposition home or self-care (01) ==
LOC: NCHCN 15:05
PROVIDERS: PCP Internal Medicine; Visit Provider Internal Medicine
DX: K83.1 Obstruction of bile duct (principal); K75.9 Inflammatory liver disease, unspecified
CPT/HCPCS: 80053; 83690; 85027; 86704; 86706; 86709; 87340

== ENCOUNTER → 2023-05-02 00:50 | Outpatient (CLI) | payer MEDICARE, SELFPAY ==
--- NOTE | 2023-05-02 | DI.MRI_ITS ---
Exam(s) MR ABDOMEN WO EXAM: MR ABDOMEN WO CLINICAL HISTORY: JAUNDICE,R17,HEPATITIS,K75.9,F/U ABNL US AND CT TECHNIQUE: Multiplanar multisequence MRI of the Abdomen was performed. MRCP sequences also performed. COMPARISON: US US ABDOMEN from 04/17/[address] ABDOMEN PELVIS W from 04/20/2023 FINDINGS: Liver: Unremarkable. Gallbladder: Distended. No wall thickening. Some layering sludge. Bile Ducts: Dilatation of intra hepatic bile ducts similar to prior CT. Proximal common hepatic duct is dilated with abrupt cut off. No mass or stone is visible. Common bile duct not dilated. Pancreas: Unremarkable. No mass. No dilatation of the pancreatic duct. Adrenals: Unremarkable. Kidneys: Simple cyst left kidney. No follow-up recommended. Spleen: Unremarkable. Aorta: Unremarkable. Soft Tissues: Unremarkable. Bone: Unremarkable. Lymph Nodes: Unremarkable. Mesentery: No ascites. No focal fluid collection. Bowel: No abnormal dilatation or wall thickening. IMPRESSION: Dilatation of intrahepatic bile ducts and common hepatic duct with abrupt cutoff proximally. No obst ructing stone or mass is visible. Distended gallbladder with sludge. No wall thickening. DATA REPOSITORY:
== END ==
PROVIDERS: PCP Internal Medicine; Visit Provider Internal Medicine
DX: K75.9 Inflammatory liver disease, unspecified (principal)
CPT/HCPCS: 74181

== ENCOUNTER 2023-05-03 11:29 | Outpatient (REF) | payer MEDICARE, SELFPAY ==
[2023-05-03 22:33] LABS: PSA, Screening <0.1 ng/mL (<=6.5)
[2023-05-04 11:27] LABS: Hepatitis B Surface Ag Negative (Negative)
== END 2023-05-03 11:30 | disposition home or self-care (01) ==
LOC: NCHCN 11:29
PROVIDERS: PCP Internal Medicine; Visit Provider Internal Medicine
DX: K83.1 Obstruction of bile duct (principal); K75.9 Inflammatory liver disease, unspecified; Z85.46 Personal history of malignant neoplasm of prostate
CPT/HCPCS: 84153; 87340

== ENCOUNTER 2023-05-10 12:02 | Outpatient (REF) | payer MEDICARE, SELFPAY ==
[2023-05-10 16:05] LABS: Abs Immature Grans 0.05 10^3/uL (0.0-0.06); Absolute Eosinophil Count 0.21 10^3/uL (0.0-0.7); Absolute Lymphocyte Count 0.58 10^3/uL (1.2-3.4); Absolute Monocyte Count 0.91 10^3/uL (0.1-0.8); Absolute Neutrophil Count 5.13 10^3/uL (1.2-6.7); Basophils % 1.4; HCT 35.4 % (40.0-50.0); HGB 12.7 g/dL (13.5-17.5); Immature Grans % 0.7; Lymphocytes % 8.3; MCH 32.9 pg (27.0-33.0); MCHC 35.9 % (32.0-36.0); MCV 92 fL (80-95); MPV 12.7 fL (8.0-11.0); Neutrophils % 73.6; Platelet Count 229 10^3/uL (130-400); RBC 3.86 10^6/uL (4.36-5.78); RDW-SD 66.3 fL; WBC 6.98 10^3/uL (4.4-10.8)
[2023-05-10 17:06] LABS: ALT 206 U/L (16-63); Albumin 2.5 g/dL (3.4-5.0); Alkaline Phosphatase 821 U/L (46-116); Anion Gap 14.6 mmol/L (3-11); BUN 17 mg/dL (7-18); CO2 20.4 mmol/L (21.0-32.0); CREATININE 1.1 mg/dL (0.70-1.30); Calcium 9.6 mg/dL (8.5-10.1); Chloride 100 mmol/L (98-107); Estimated GFR 70.44 (mL/min/1.73m2); Glucose 98 mg/dL (74-106); Potassium 4.4 mmol/L (3.5-5.1); Sodium 135 mmol/L (136-145)
[2023-05-10 17:54] LABS: Total Protein 6.2 g/dL (6.4-8.2)
[2023-05-10 17:55] LABS: AST 177 U/L (15-37)
[2023-05-10 18:52] LABS: Bilirubin, Total 29.4 mg/dL (0.2-1.0)
== END 2023-05-10 12:03 | disposition home or self-care (01) ==
LOC: NCHCN 12:02
PROVIDERS: PCP Internal Medicine; Visit Provider Internal Medicine
DX: K83.1 Obstruction of bile duct (principal); R17 Unspecified jaundice; I10 Essential (primary) hypertension
CPT/HCPCS: 80053; 85025

== ENCOUNTER 2023-05-29 15:17 | Outpatient (REF) | payer MEDICARE, SELFPAY ==
[2023-05-29 20:33] LABS: HCT 29.8 % (40.0-50.0); HGB 9.9 g/dL (13.5-17.5); MCH 33.4 pg (27.0-33.0); MCHC 33.2 % (32.0-36.0); MCV 101 fL (80-95); MPV 11.9 fL (8.0-11.0); Platelet Count 264 10^3/uL (130-400); RBC 2.96 10^6/uL (4.36-5.78); RDW 15.2 % (11.8-14.1); RDW-SD 56.3 fL; WBC 9.52 10^3/uL (4.4-10.8)
[2023-05-29 20:48] LABS: ALT 268 U/L (16-63); AST 166 U/L (15-37); Albumin 2.8 g/dL (3.4-5.0); Alkaline Phosphatase 471 U/L (46-116); Anion Gap 7.1 mmol/L (3-11); BUN 24 mg/dL (7-18); Bilirubin, Total 6.2 mg/dL (0.2-1.0); CO2 25.9 mmol/L (21.0-32.0); CREATININE 1.4 mg/dL (0.70-1.30); Calcium 9.4 mg/dL (8.5-10.1); Chloride 104 mmol/L (98-107); Estimated GFR 52.74 (mL/min/1.73m2); Glucose 100 mg/dL (74-106); Potassium 4.9 mmol/L (3.5-5.1); Sodium 137 mmol/L (136-145); Total Protein 6.4 g/dL (6.4-8.2)
== END 2023-05-29 15:18 | disposition home or self-care (01) ==
LOC: NCHCN 15:17
PROVIDERS: PCP Internal Medicine; Visit Provider Internal Medicine
DX: K83.1 Obstruction of bile duct (principal); K75.9 Inflammatory liver disease, unspecified
CPT/HCPCS: 80053; 85027

== ENCOUNTER 2023-08-08 12:52 | Outpatient (REF) | payer MEDICARE, SELFPAY ==
[2023-08-08 15:25] LABS: Abs Immature Grans 0.05 10^3/uL (0.0-0.06); Absolute Basophil Count 0.14 10^3/uL (0.0-0.2); Absolute Eosinophil Count 0.64 10^3/uL (0.0-0.7); Absolute Lymphocyte Count 0.71 10^3/uL (1.2-3.4); Absolute Neutrophil Count 6.83 10^3/uL (1.2-6.7); Basophils % 1.5; Eosinophils % 6.9; HCT 28.5 % (40.0-50.0); HGB 9.2 g/dL (13.5-17.5); Immature Grans % 0.5; Lymphocytes % 7.7; MCH 30.6 pg (27.0-33.0); MCHC 32.3 % (32.0-36.0); MCV 95 fL (80-95); MPV 10.7 fL (8.0-11.0); Monocytes % 9.7; Neutrophils % 73.7; Platelet Count 361 10^3/uL (130-400); RBC 3.01 10^6/uL (4.36-5.78); RDW-SD 47.6 fL; WBC 9.27 10^3/uL (4.4-10.8)
[2023-08-08 15:51] LABS: ALT 45 U/L (16-63); AST 25 U/L (15-37); Albumin 2.7 g/dL (3.4-5.0); Alkaline Phosphatase 186 U/L (46-116); Anion Gap 9.1 mmol/L (3-11); BUN 29 mg/dL (7-18); Bilirubin, Total 0.4 mg/dL (0.2-1.0); CO2 22.9 mmol/L (21.0-32.0); CREATININE 0.9 mg/dL (0.70-1.30); Calcium 8.7 mg/dL (8.5-10.1); Chloride 98 mmol/L (98-107); Estimated GFR 89.62 (mL/min/1.73m2); Glucose 105 mg/dL (74-106); Magnesium 2.4 mg/dL (1.8-2.4); Potassium 5.1 mmol/L (3.5-5.1); Sodium 130 mmol/L (136-145); Total Protein 6.6 g/dL (6.4-8.2); Triglyceride 33 mg/dL (<150)
[2023-08-08 16:15] LABS: PHOSPHORUS 5.1 mg/dL (2.6-4.7)
[2023-08-09 10:20] LABS: Prealbumin 24 mg/dL (20-40)
== END 2023-08-08 12:53 | disposition home or self-care (01) ==
LOC: LBN 12:52
PROVIDERS: PCP Internal Medicine; Visit Provider Surgery
DX: C22.1 Intrahepatic bile duct carcinoma (principal)
CPT/HCPCS: 80053; 83735; 84100; 84134; 84478; 85025

== ENCOUNTER 2023-08-14 14:29 | Outpatient (REF) | payer MEDICARE, SELFPAY ==
[2023-08-14 13:37] LABS: Abs Immature Grans 0.04 10^3/uL (0.0-0.06); Absolute Basophil Count 0.06 10^3/uL (0.0-0.2); Absolute Eosinophil Count 0.11 10^3/uL (0.0-0.7); Absolute Lymphocyte Count 0.22 10^3/uL (1.2-3.4); Absolute Monocyte Count 0.18 10^3/uL (0.1-0.8); Absolute Neutrophil Count 10.21 10^3/uL (1.2-6.7); Basophils % 0.6; HCT 28.3 % (40.0-50.0); HGB 9.5 g/dL (13.5-17.5); Immature Grans % 0.4; MCH 30.4 pg (27.0-33.0); MCHC 33.6 % (32.0-36.0); MCV 90 fL (80-95); MPV 11.9 fL (8.0-11.0); Monocytes % 1.7; Neutrophils % 94.3; Platelet Count 195 10^3/uL (130-400); RBC 3.13 10^6/uL (4.36-5.78); RDW 13.8 % (11.8-14.1); RDW-SD 45.4 fL; WBC 10.83 10^3/uL (4.4-10.8)
[2023-08-14 14:00] LABS: ALT 36 U/L (16-63); AST 22 U/L (15-37); Albumin 2.6 g/dL (3.4-5.0); Alkaline Phosphatase 154 U/L (46-116); Anion Gap 8.5 mmol/L (3-11); BUN 33 mg/dL (7-18); Bilirubin, Total 0.6 mg/dL (0.2-1.0); CO2 23.5 mmol/L (21.0-32.0); Calcium 8.3 mg/dL (8.5-10.1); Chloride 97 mmol/L (98-107); Estimated GFR 78.98 (mL/min/1.73m2); Glucose 112 mg/dL (74-106); Magnesium 2.1 mg/dL (1.8-2.4); Sodium 129 mmol/L (136-145); Total Protein 6.3 g/dL (6.4-8.2); Triglyceride 35 mg/dL (<150)
[2023-08-14 14:15] LABS: PHOSPHORUS 3.6 mg/dL (2.6-4.7)
[2023-08-15 09:48] LABS: Prealbumin 18 mg/dL (20-40)
== END 2023-08-14 14:30 | disposition home or self-care (01) ==
LOC: LBN 14:29
PROVIDERS: PCP Internal Medicine; Visit Provider Surgery
DX: C22.1 Intrahepatic bile duct carcinoma (principal); E43 Unspecified severe protein-calorie malnutrition; I10 Essential (primary) hypertension; Z85.46 Personal history of malignant neoplasm of prostate; Z48.3 Aftercare following surgery for neoplasm
CPT/HCPCS: 80053; 83735; 84100; 84134; 84478; 85025

== ENCOUNTER 2023-08-22 13:38 | Outpatient (REF) | payer MEDICARE, SELFPAY ==
[2023-08-22 13:41] LABS: Triglyceride 66 mg/dL (<150)
== END 2023-08-22 13:39 | disposition home or self-care (01) ==
LOC: LBN 13:38
PROVIDERS: PCP Internal Medicine; Visit Provider Surgery
DX: E78.5 Hyperlipidemia, unspecified (principal); E43 Unspecified severe protein-calorie malnutrition; C22.1 Intrahepatic bile duct carcinoma
CPT/HCPCS: 80053; 85027; 83735; 84100; 84134; 84478

== ENCOUNTER 2023-08-28 13:21 | Emergency (ER) | payer MEDICARE, SELFPAY ==
[2023-08-28 13:24] VITALS: BP 168/82; PULSE 96; TEMP 36.6; O2SAT 99
--- NOTE | 2023-08-28 13:45 | RT.EKG_ITS ---
APPROVED REPORT Exam: Resting ECG Reason for Exam: Dizzy Patient Location: E HR:86 bpm ECG Measurements Heart Rate 86 AXIS CA 169 P -36 QRSd 144 QRS -41 QT 399 T 26 QTc 477 Conclusion Sinus rhythm...normal P axis, V-rate 60- 99 RBBB and LAFB...QRSd >120mS, axis(-40,240) sinus rhythm left axis, RBBB, non ischemic
[2023-08-28 14:18] LABS: Absolute Basophil Count 0.07 10^3/uL (0.0-0.2); Absolute Eosinophil Count 0.17 10^3/uL (0.0-0.7); Absolute Monocyte Count 0.59 10^3/uL (0.1-0.8); Absolute Neutrophil Count 8.99 10^3/uL (1.2-6.7); Basophils % 0.6; Eosinophils % 1.6; HCT 23.6 % (40.0-50.0); Immature Grans % 0.9; Lymphocytes % 9.2; MCH 29.7 pg (27.0-33.0); MCHC 33.9 % (32.0-36.0); MCV 88 fL (80-95); MPV 9.7 fL (8.0-11.0); Monocytes % 5.4; Neutrophils % 82.3; Platelet Count 406 10^3/uL (130-400); RBC 2.69 10^6/uL (4.36-5.78); RDW 14.7 % (11.8-14.1); RDW-SD 46.1 fL; WBC 10.92 10^3/uL (4.4-10.8)
[2023-08-28] MEDS: Normal Saline 1,000 ML 1000 ML IV (14:24)
[2023-08-28 14:32] LABS: INR 1.2 (0.9-1.1); PTT Activated 22.1 sec (23.6-32.8); Prothrombin Time 11.9 sec (9.1-11.1)
[2023-08-28 14:35] LABS: ALT 67 U/L (16-63); AST 35 U/L (15-37); Albumin 2.3 g/dL (3.4-5.0); Alkaline Phosphatase 381 U/L (46-116); BUN 19 mg/dL (7-18); Bilirubin, Total 0.5 mg/dL (0.2-1.0); Calcium 8.3 mg/dL (8.5-10.1); Chloride 103 mmol/L (98-107); Estimated GFR 78.98 (mL/min/1.73m2); Glucose 122 mg/dL (74-106); Potassium 3.8 mmol/L (3.5-5.1); Sodium 137 mmol/L (136-145); Total Protein 6.7 g/dL (6.4-8.2)
[2023-08-28 14:39] LABS: Diff Comment RBC Morph Reviewed; Polychromasia Present
[2023-08-28 14:52] LABS: Procalcitonin 0.3 ng/mL
[2023-08-28] MEDS: Omnipaque 350 MG/ML 100 ML BTL IJ (15:03)
[2023-08-28] MEDS: Normal Saline - Diluent 50 ML VIAL IJ (15:04)
[2023-08-28] MEDS: Normal Saline Flush 10 ML SYR IVP (15:05)
--- NOTE | 2023-08-28 15:06 | DI.CT_ITS ---
Exam(s) CT ABDOMEN PELVIS W EXAM: CT ABDOMEN PELVIS W CLINICAL HISTORY: whipple in dec w/ hx post op infect, lightheaded. TECHNIQUE: Imaging Protocol: Axial computed tomography images with coronal and sagittal reformatted images were created and reviewed CONTRAST MATERIAL: Intravenous: Omnipaque 350 Contrast volume:100 ml Oral: / no COMPARISON: CT CT ABDOMEN PELVIS W from 04/20/2023 FINDINGS: ABDOMEN and PELVIS: Lung Bases: No acute findings. Liver: Minimal subcapsular fluid. Small fluid collection at the inferior border of the liver at the g allbladder fossa, measuring approximately 2.8 by 2.7 x 1.8 cm. Normal density. No measurable mass. Mi ld periportal edema. Gallbladder and biliary tract: Status post cholecystectomy and Whipple procedure. Previously noted bi liary dilatation has resolved. Pancreas: Status post Whipple procedure. No abnormal calcifications or inflammatory process. No evide nce of mass. Spleen: Normal. Kidneys: Normal size, contour and axis. No radiodense stones. No obstructive uropathy. No suspicious masses seen. Adrenal glands: No masses seen. Vasculature: Abdominal aorta non-dilated. Soft tissues: Midline surgical scar. Small amount of residual fluid seen in the subcutaneous fat to t he right of the umbilicus. Small bilateral fatty containing inguinal hernias. Right testicle seen in right inguinal canal. Bladder: Mild wall thickening. No calculi.No focal mass. Bowel: No obstruction. No bowel wall thickening. Peritoneal cavity: Small amount of fluid in lower pelvis.. No focal collection or mesenteric inflamma tory response. Bones: Advanced degenerative changes in the lower thoracic and lumbar spine. Reproductive organs: Metallic seeds in prostate. Lymph nodes: Small lymph nodes in upper mesentery, likely reactive. IMPRESSION:: Status post Whipple procedure. No biliary dilatation. No evidence of bowel obstruction. Small subcapsular fluid collection at the gallbladder fossa. Midline surgical scar containing some fluid, greatest at the level of the umbilicus. Findings called to Dr. Syed of the emergency department. RADIATION DOSE DELIVERED: 919.32mGy.cm Total DLP DATA REPOSITORY: All CT scans at this facility are submitted to the National Radiology Data Registry (NRDR) Dose Index Registry (DIR) with the [employer] (ACR). RADIATION OPTIMIZATION: All CT scans at this facility use at least one of these dose optimization te chniques: automated exposure control; mA and/or kV adjustment per patient size (includes targeted exa ms where dose is matched to clinical indication); or iterative reconstruction.
--- NOTE | 2023-08-28 15:30 | ED.GENADUL_ITS ---
HPI General Date/Time Provider Initiated Documentation: 08/28/23 13:29 . HPI Narrative: 73-year-old male status post Whipple procedure performed at [facility] end of June complicated by postoperative surgical site infection currently on oral antibiotics presents with lightheadedness fatigue over the last day. Denies abdominal pain vomiting or constipation. Passing stool. No chest pain shortness of breath no leg swelling or pain no history of thromboembolic disease Related Data Home Medications Medication Instructions Recorded Confirmed aspirin 81 mg tablet,delayed 81 mg PO DAILY 03/09/14 08/28/23 release (Aspir-) multivitamin (Daily Multi-Vitamin 1 tab PO DAILY 03/09/14 08/28/23 tablet) naproxen sodium 220 mg tablet 220 mg PO DAILY PRN 03/09/14 08/28/23 (Aleve) cholecalciferol (vitamin D3) 25 1 cap PO DAILY 06/25/15 08/28/23 mcg (1,000 unit) capsule (Vitamin D3) atorvastatin 20 mg tablet 20 mg PO HS 02/09/22 08/28/23 oxybutynin chloride 10 mg 10 mg PO DAILY 02/09/22 08/28/23 tablet,extended release 24 hr triamcinolone acetonide 0.1 % 1 applic topical BID 02/09/22 08/28/23 topical cream lisinopril 20 mg tablet 20 mg PO HS 02/27/22 08/28/23 bupropion HCl 300 mg 24 hr tablet, 300 mg PO DAILY 08/28/23 08/28/23 extended release lactulose 10 gram/15 mL oral 10 g PO BID 08/28/23 08/28/23 solution (Constulose) levofloxacin 750 mg tablet 750 mg PO DAILY 08/28/23 08/28/23 [id number]-[id number] 1 cap PO TID 08/28/23 08/28/23 25,000-85,000-136,000 unit capsule,delayed rel ondansetron 4 mg disintegrating 4 mg PO Q8H PRN 08/28/23 08/28/23 tablet pantoprazole 40 mg tablet,delayed 40 mg PO DAILY 08/28/23 08/28/23 release prochlorperazine maleate 10 mg 10 mg PO Q6H PRN 08/28/23 08/28/23 tablet Allergies Allergy/AdvReac Type Severity Reaction Status Date / Time mirabegron [From Myrbetriq] AdvReac Other (See Verified 03/23/22 10:49 Comment) General Stated Complaint: Dizzy/Sync SAIMA: 3 Review of Systems Narrative: Review of Systems Constitutional: negative Eyes: negative ENT: negative Cardiovascular: Lightheadedness Respiratory: negative Gastrointestinal: negative : negative Musculoskeletal: negative Skin: negative Neurologic: negative Psych: negative Exam Narrative Exam Narrative: Physical Examination General: alert, awake, cooperative, resting comfortably, no acute distress HEENT: normocephalic, atraumatic; PERRL, EOM intact, conjunctiva normal; no nasal discharge; dry oral mucosa Neck: supple, trachea midline; full ROM Chest: normal to inspection Respiratory: normal respiratory effort, speaking in full sentences, clear to auscultation, no wheezing, rales or rhonchi Cardiac: regular rate, regular rhythm, S1S2 intact, no murmurs rubs or gallops GI: abdomen soft, non-tender, non-distended; no palpable mass or hepatosplenomegaly; small area of induration erythema midline between umbilicus and subxiphoid region no fluctuance or purulence noted no crepitus Skin: Pale, dry Neuro: AAOx3, normal speech, moving all extremities Psych: Appropriate mood and affect Course Vital Signs Vital signs: Vital Signs Temperature 36.6 C 08/28/23 13:24 Pulse 96 H 08/28/23 13:24 Blood Pressure 168/82 H 08/28/23 13:24 Pulse Oximetry 99 08/28/23 13:24 Temperature 36.6 C 08/28/23 13:24 Temperature Source Temporal Artery Scan 08/28/23 13:24 Pulse 96 H 08/28/23 13:24 Blood Pressure 168/82 H 08/28/23 13:24 Blood Pressure Position Sitting 08/28/23 13:24 Pulse Oximetry 99 08/28/23 13:24 Oxygen Delivery Method Room Air 08/28/23 13:24 Oxygen Flow Rate 0 08/28/23 13:24 Pain Level 0 08/28/23 13:24 Lab/Test Results Lab/Test Results: Laboratory Tests Range/Units 08/28/23 14:07 WBC (4.4-10.8) 10^3/uL 10.92 H RBC (4.36-5.78) 10^6/uL 2.69 L Hgb (13.5-17.5) g/dL 8.0 L Hct (40.0-50.0) % 23.6 L MCV (80-95) fL 88 MCH (27.0-33.0) pg 29.7 MCHC (32.0-36.0) % 33.9 RDW (11.8-14.1) % 14.7 H Plt Count (130-400) 10^3/uL 406 H MPV (8.0-11.0) fL 9.7 Immature Gran % 0.9 Neutrophils % 82.3 Lymphocytes % 9.2 Monocytes % 5.4 Eosinophils % 1.6 Basophils % 0.6 Nucleated RBC % (0.0-0.3) % 0.0 Absolute Neutrophils (1.2-6.7) 10^3/uL 8.99 H Absolute Lymphocytes (1.2-3.4) 10^3/uL 1.00 L Absolute Monocytes (0.1-0.8) 10^3/uL 0.59 Absolute Eosinophils (0.0-0.7) 10^3/uL 0.17 Absolute Basophils (0.0-0.2) 10^3/uL 0.07 RBC Morphology See Below Polychromasia Present PT (9.1-11.1) sec 11.9 H INR (0.9-1.1) 1.2 H APTT (23.6-32.8) sec 22.1 L Sodium (136-145) mmol/L 137 Potassium (3.5-5.1) mmol/L 3.8 Chloride (98-107) mmol/L 103 Carbon Dioxide (21.0-32.0) mmol/L 24.0 Anion Gap (3-11) mmol/L 10.0 BUN (7-18) mg/dL 19 H Creatinine (0.70-1.30) mg/dL 1.0 Est GFR (CKD-EPI 2020) (mL/min/1.73m2) 78.98 Glucose (74-106) mg/dL 122 H Calcium (8.5-10.1) mg/dL 8.3 L Total Bilirubin (0.2-1.0) mg/dL 0.5 AST (15-37) U/L 35 ALT (16-63) U/L 67 H Alkaline Phosphatase (46-116) U/L 381 H Total Protein (6.4-8.2) g/dL 6.7 Albumin (3.4-5.0) g/dL 2.3 L Procalcitonin ng/mL 0.3 Medical Decision Making 73-year-old male status post Whipple procedure end of June at [facility] presents with lightheadedness and fatigue over the last day, no to be pale with dry skin and dry oral mucosa, borderline tachycardia on arrival, slightly hypertensive, abdomen soft nontender nondistended, procedure was complicated by postoperative infection, patient is currently on oral antibiotics, resolving redness and induration midline abdomen on examination, small area of induration and erythema between subxiphoid and umbilical region; given history physical and examination consider dehydration versus anemia versus persistent postoperative infection versus viral syndrome. Will obtain screening labs imaging fluids meds close reassessment 16: 39 patient resting with no acute distress feeling much better. Great improvement of clinical examination and symptomatology. Color has returned, hemodynamically stable. Energy level back to normal. Patient wishing to go home. Quality:SDOH Health Related Social Needs: No Data to Display PFSH All Active Problems (Updated 08/28/23 @ 16:40 by Tavon Syed MD) Dehydration (Acute) Prostate cancer (Chronic) Situational anxiety (Acute) Dysthymia (Acute) Generalized social phobia (Acute) Alcohol abuse (Chronic) Chronic back pain (Acute) Sleep disturbance (Acute) Urinary incontinence (Acute) Rotator cuff syndrome (Acute) Nocturnal leg cramps (Acute) Memory impairment (Acute) Orthostasis (Acute) Hematuria (Acute) Urinary hesitancy (Acute) Screening for colorectal cancer (Acute) Medical History (Updated 08/28/23 @ 16:40 by Tavon Syed MD) Hypertension Obesity (BMI 30-39.9) Hyperlipidemia Erectile dysfunction History of prostate cancer Surgical History Colonoscopy - IV Sedation Social History Smoking/Tobacco Use Status: Former Tobacco Use Quit Date: 07/23/68 Smoking risk assessment performed?: Yes Alcohol Intake: current Alcohol Intake frequency: 3 or more drinks per day Drug use: Never Substance use type: does not use Do you feel safe at home: Yes Do you feel safe in your relationship?: Yes Discharge Plan Disposition Patient Disposition: Home Condition: Improving Discharge Details Chief Complaint: Dizzy/Sync Clinical Impression: Dehydration Primary Care Provider: Fernando Koehler ED Provider: Tavon Syed Home Meds and New Rx's Prescriptions: No Action lisinopril 20 mg tablet 20 mg PO HS triamcinolone acetonide 0.1 % cream 1 applic topical BID oxybutynin chloride 10 mg tablet extended release 24hr 10 mg PO DAILY Hold Instructions: Home Medication placed on hold at Doctor's office atorvastatin 20 mg tablet 20 mg PO HS multivitamin [Daily Multi-Vitamin] 1 EACH tablet 1 tab PO DAILY aspirin [Aspir-81] 81 MG tablet,delayed release (DR/EC) 81 mg PO DAILY naproxen sodium [Aleve] 220 MG tablet 220 mg PO DAILY PRN cholecalciferol (vitamin D3) [Vitamin D3] 1,000 UNIT capsule 1 cap PO DAILY bupropion HCl 300 mg tablet extended release 24 hr 300 mg PO DAILY Patient Comments: TAKE ONE TABLET BY MOUTH EVERY DAY lactulose [Constulose] 10 gram/15 mL solution 10 g PO BID Patient Comments: TAKE 15ML BY MOUTH TWO TIMES A DAY NEEDED levofloxacin 750 mg tablet 750 mg PO DAILY pantoprazole 40 mg tablet,delayed release (DR/EC) 40 mg PO DAILY Patient Comments: TAKE ONE TABLET BY MOUTH EVERY DAY ondansetron 4 mg tablet,disintegrating 4 mg PO Q8H PRN Patient Comments: TAKE 1 TABLET BY MOUTH EVERY 8 HOURS NEEDED FOR NAUSEA prochlorperazine maleate 10 mg tablet 10 mg PO Q6H PRN Patient Comments: TAKE ONE TABLET BY MOUTH EVERY 6 HOURS NEEDED FOR NAUSEA [id number]-[id number] 25,000-85,000- 136,000 unit capsule,delayed release(DR/EC) 1 cap PO TID Discharge Instructions Instructions: Dehydration (ED) Additional Instructions: Please continue take your prescribed medication. Return to the emergency department for worsening symptoms. Otherwise follow-up with your primary care physician and surgical team as scheduled.
[2023-08-28 16:51] VITALS: BP 126/68; PULSE 97; RESP 18; O2SAT 97
== END 2023-08-28 16:52 | disposition home or self-care (01) ==
PROVIDERS: Emergency Provider Emergency Medicine; PCP Family Medicine
DX: R42 Dizziness and giddiness (principal); I45.19 Other right bundle-branch block; I10 Essential (primary) hypertension; E78.5 Hyperlipidemia, unspecified; Z98.890 Other specified postprocedural states; Z87.891 Personal history of nicotine dependence
CPT/HCPCS: 80053; 84145; 86850; 86900; 86901; 93005; 96361; 96374; 99284; 99285; 74177; 85025; 85610; 85730; 93010; J3490

== ENCOUNTER 2023-08-29 15:48 | Outpatient (REF) | payer MEDICARE, SELFPAY ==
[2023-08-29 15:46] LABS: Iron 30 ug/dL (65-175); Total Iron Binding Capacity 212 ug/dL (250-450); Transferrin Sat 14 % (20-55)
[2023-08-29 16:32] LABS: Ferritin 249 ng/mL (26-388)
== END 2023-08-29 15:49 | disposition home or self-care (01) ==
LOC: NCHCN 15:48
PROVIDERS: PCP Family Medicine; Visit Provider Family Medicine
DX: D64.9 Anemia, unspecified (principal)
CPT/HCPCS: 82728; 83540; 83550

== ENCOUNTER 2023-09-04 10:03 | Emergency (ER) | payer MEDICARE, SELFPAY ==
[2023-09-04 10:06] VITALS: BP 141/73; PULSE 93; RESP 20; TEMP 36.4; O2SAT 99
--- NOTE | 2023-09-04 10:15 | RT.EKG_ITS ---
APPROVED REPORT Exam: Resting ECG Reason for Exam: weakness Patient Location: E HR:92 bpm ECG Measurements Heart Rate 92 AXIS IA 174 P -24 QRSd 137 QRS -43 QT 373 T 3 QTc 463 Conclusion Sinus rhythm...normal P axis, V-rate 60- 99 RBBB and LAFB...QRSd >120mS, axis(-40,240) sinus rhtyhm, left axis, RBBB unchanged from most recent
[2023-09-04 10:18] VITALS: BP 141/73; PULSE 93; RESP 16; RESP 20; TEMP 36.4; O2SAT 99
[2023-09-04 10:35] LABS: Abs Immature Grans 0.02 10^3/uL (0.0-0.06); Absolute Basophil Count 0.07 10^3/uL (0.0-0.2); Absolute Eosinophil Count 0.16 10^3/uL (0.0-0.7); Absolute Lymphocyte Count 0.82 10^3/uL (1.2-3.4); Absolute Monocyte Count 0.63 10^3/uL (0.1-0.8); Absolute Neutrophil Count 5.08 10^3/uL (1.2-6.7); Eosinophils % 2.4; HCT 27.5 % (40.0-50.0); HGB 8.9 g/dL (13.5-17.5); Immature Grans % 0.3; Lymphocytes % 12.1; MCH 29.8 pg (27.0-33.0); MCHC 32.4 % (32.0-36.0); MCV 92 fL (80-95); MPV 8.5 fL (8.0-11.0); Monocytes % 9.3; Neutrophils % 74.9; Platelet Count 395 10^3/uL (130-400); RBC 2.99 10^6/uL (4.36-5.78); RDW 16.5 % (11.8-14.1); RDW-SD 54.8 fL; WBC 6.78 10^3/uL (4.4-10.8)
[2023-09-04] MEDS: Lactated Ringers 1,000 ML 1000 ML IV (10:36)
[2023-09-04 10:55] LABS: Anisocytosis 1+
[2023-09-04 10:56] LABS: ALT 37 U/L (16-63); AST 22 U/L (15-37); Albumin 2.8 g/dL (3.4-5.0); Alkaline Phosphatase 211 U/L (46-116); Anion Gap 10.6 mmol/L (3-11); BUN 9 mg/dL (7-18); Bilirubin, Total 0.5 mg/dL (0.2-1.0); CO2 25.4 mmol/L (21.0-32.0); CREATININE 1.3 mg/dL (0.70-1.30); Calcium 8.9 mg/dL (8.5-10.1); Chloride 105 mmol/L (98-107); Diff Comment RBC Morph Reviewed; Estimated GFR 57.65 (mL/min/1.73m2); Glucose 105 mg/dL (74-106); Sodium 141 mmol/L (136-145)
[2023-09-04 11:06] LABS: Magnesium 1.9 mg/dL (1.8-2.4); TSH (W/Ref FT4) 3.38 uIU/mL (0.36-3.74); Troponin I < 50 ng/L (< or =60)
[2023-09-04 11:27] LABS: ETHANOL BLOOD < 3.0 mg/dL (<10); PHOSPHORUS 3.7 mg/dL (2.6-4.7)
[2023-09-04 12:53] VITALS: BP 148/83; PULSE 92; RESP 17; TEMP 36.7; O2SAT 100
[2023-09-04 12:57] LABS: Bilirubin Negative (Negative); Blood Negative (Negative); Clarity Clear (Clear); Glucose Negative (Negative); Ketones Negative (Negative); Leukocyte Esterase Negative (Negative); Nitrite Negative (Negative); Urobilinogen 0.2 mg/dL (Up to 0.2); pH 6.5 (5-8)
--- NOTE | 2023-09-04 15:03 | W.ED.GENAD ---
HPI General Date/Time Provider Initiated Documentation: 09/04/23 10:16. 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 He denies any exacerbation today. He also states he had a recent admission to [facility] for an abdominal cellulitis and is currently continuing on Levaquin for this. He states is markedly improved. He denies any chest pain or shortness of breath. He states he feels lightheaded when he stands up too quickly and frequently when he walks. He denies any falls or injuries. He is not currently drinking alcohol and has been sober since March per patient. Related Data Home Medications Medication Instructions Recorded Confirmed aspirin 81 mg tablet,delayed 81 mg PO DAILY 03/09/14 09/04/23 release (Aspir-) multivitamin (Daily Multi-Vitamin 1 tab PO DAILY 03/09/14 09/04/23 tablet) naproxen sodium 220 mg tablet 220 mg PO DAILY PRN 03/09/14 09/04/23 (Aleve) cholecalciferol (vitamin D3) 25 1 cap PO DAILY 06/25/15 09/04/23 mcg (1,000 unit) capsule (Vitamin D3) atorvastatin 20 mg tablet 20 mg PO HS 02/09/22 09/04/23 oxybutynin chloride 10 mg 10 mg PO DAILY 02/09/22 09/04/23 tablet,extended release 24 hr triamcinolone acetonide 0.1 % 1 applic topical BID 02/09/22 09/04/23 topical cream lisinopril 20 mg tablet 20 mg PO HS 02/27/22 09/04/23 bupropion HCl 300 mg 24 hr tablet, 300 mg PO DAILY 08/28/23 09/04/23 extended release lactulose 10 gram/15 mL oral 10 g PO BID 08/28/23 09/04/23 solution (Constulose) levofloxacin 750 mg tablet 750 mg PO DAILY 08/28/23 09/04/23 wxaqcc-jrimpqgi-zpcfwem 1 cap PO TID 08/28/23 09/04/23 25,000-85,000-136,000 unit capsule,delayed rel ondansetron 4 mg disintegrating 4 mg PO Q8H PRN 08/28/23 09/04/23 tablet pantoprazole 40 mg tablet,delayed 40 mg PO DAILY 08/28/23 09/04/23 release prochlorperazine maleate 10 mg 10 mg PO Q6H PRN 08/28/23 09/04/23 tablet acetaminophen 325 mg capsule See Rx Instructions PO .COMPLEX PRN 09/04/23 09/04/23 levofloxacin 750 mg tablet 750 mg PO Q24H 5 days #5 tabs 09/04/23 bhlukt-pfputrtd-rarcytk 1 cap PO TID 09/04/23 09/04/23 25,000-79,000-105,000 unit capsule,delayed rel (Zenpep) Previous Rx's Medication Instructions Recorded levofloxacin 750 mg tablet 750 mg PO Q24H 5 days #5 tabs 09/04/23 Allergies Allergy/AdvReac Type Severity Reaction Status Date / Time mirabegron [From Myrbetriq] AdvReac Other (See Verified 09/04/23 10:10 Comment) General Stated Complaint: GenMedical SAIMA: 3 Course Vital Signs Vital signs: Vital Signs Temperature 36.4 C L 09/04/23 10:06 Pulse 93 H 09/04/23 10:06 Respiratory Rate 20 09/04/23 10:06 Blood Pressure 141/73 H 09/04/23 10:06 Pulse Oximetry 99 09/04/23 10:06 Temperature 36.7 C 09/04/23 12:53 Temperature Source Skin 09/04/23 10:18 Pulse 92 H 09/04/23 12:53 Respiratory Rate 17 09/04/23 12:53 Respiratory Effort Normal 09/04/23 10:18 Respiratory Depth Normal 09/04/23 10:18 Blood Pressure 148/83 H 09/04/23 12:53 Blood Pressure Position Sitting 09/04/23 10:18 Pulse Oximetry 100 09/04/23 12:53 Oxygen Delivery Method Room Air 09/04/23 10:18 Oxygen Flow Rate 0 09/04/23 10:18 Pain Level 0 09/04/23 12:53 Lab/Test Results Lab/Test Results: Laboratory Tests Range/Units 09/04/23 09/04/23 10:28 12:50 WBC (4.4-10.8) 10^3/uL 6.78 RBC (4.36-5.78) 10^6/uL 2.99 L Hgb (13.5-17.5) g/dL 8.9 L Hct (40.0-50.0) % 27.5 L MCV (80-95) fL 92 MCH (27.0-33.0) pg 29.8 MCHC (32.0-36.0) % 32.4 RDW (11.8-14.1) % 16.5 H Plt Count (130-400) 10^3/uL 395 MPV (8.0-11.0) fL 8.5 Immature Gran % 0.3 Neutrophils % 74.9 Lymphocytes % 12.1 Monocytes % 9.3 Eosinophils % 2.4 Basophils % 1.0 Nucleated RBC % (0.0-0.3) % 0.0 Absolute Neutrophils (1.2-6.7) 10^3/uL 5.08 Absolute Lymphocytes (1.2-3.4) 10^3/uL 0.82 L Absolute Monocytes (0.1-0.8) 10^3/uL 0.63 Absolute Eosinophils (0.0-0.7) 10^3/uL 0.16 Absolute Basophils (0.0-0.2) 10^3/uL 0.07 RBC Morphology See Below Anisocytosis 1+ Sodium (136-145) mmol/L 141 Potassium (3.5-5.1) mmol/L 4.0 Chloride (98-107) mmol/L 105 Carbon Dioxide (21.0-32.0) mmol/L 25.4 Anion Gap (3-11) mmol/L 10.6 BUN (7-18) mg/dL 9 Creatinine (0.70-1.30) mg/dL 1.3 Est GFR (CKD-EPI 2020) (mL/min/1.73m2) 57.65 Glucose (74-106) mg/dL 105 Calcium (8.5-10.1) mg/dL 8.9 Phosphorus (2.6-4.7) mg/dL 3.7 Magnesium (1.8-2.4) mg/dL 1.9 Total Bilirubin (0.2-1.0) mg/dL 0.5 AST (15-37) U/L 22 ALT (16-63) U/L 37 Alkaline Phosphatase (46-116) U/L 211 H Troponin I (< or =60) ng/L < 50 Total Protein (6.4-8.2) g/dL 7.0 Albumin (3.4-5.0) g/dL 2.8 L TSH (0.36-3.74) uIU/mL 3.38 Urine Color (Yellow) Yellow Urine Clarity (Clear) Clear Urine pH (5-8) 6.5 Ur Specific [place] (1.005-1.025) 1.020 Urine Protein (Negative) mg/dL Negative Urine Ketones (Negative) mg/dL Negative Urine Blood (Negative) Negative Urine Nitrite (Negative) Negative Urine Bilirubin (Negative) Negative Urine Urobilinogen (Up to 0.2) mg/dL 0.2 Ur Leukocyte Esterase (Negative) Negative Urine Glucose (Negative) mg/dL Negative Ethyl Alcohol (<10) mg/dL < 3.0 Medical Decision Making This 73-year-old male is presenting with malaise and tremor Hemoglobin and hematocrit are improving, 8.9 and 27.5 respectively and the remainder of labs including urinalysis are negative for acute abnormality Thiamine is pending with patient's longstanding history of alcoholism Alert, oriented, pupils equal round reactive to light and accommodation, conjugate gaze intact, ambulatory with steady gait, intention tremor noted, cranial nerves II through intact, negative elgmxs-vpqj-gctzfw, negative heel ball, lungs clear to auscultation, cardiac rate rhythm regular Abdomen with small amount of cellulitis following an incision line without evidence of wound dehiscence, nontender At this time and sounds like patient's symptoms are more chronic in nature, I think he should follow-up with his primary care physician and is encouraged to return should he have new or worsening complaints He does not endorse headache and has a nonfocal neurological exam aside from tremor which patient tells me he has had for months He does have a looks like a resolving cellulitis on his abdomen which he assures me is significantly improved, I will extend his Levaquin for 3-5 more days and encouraged him to take a probiotic Return precautions reviewed and patient expressed understanding Quality:SDOH Health Related Social Needs: No Data to Display PFSH All Active Problems (Updated 09/04/23 @ 12:31 by ANTWON Feliciano) Cellulitis, wound, post-operative (Acute) Anemia of chronic disease (Acute) Malaise (Acute) Dehydration (Acute) Prostate cancer (Chronic) Situational anxiety (Acute) Dysthymia (Acute) Generalized social phobia (Acute) Alcohol abuse (Chronic) Chronic back pain (Acute) Sleep disturbance (Acute) Urinary incontinence (Acute) Rotator cuff syndrome (Acute) Nocturnal leg cramps (Acute) Memory impairment (Acute) Orthostasis (Acute) Hematuria (Acute) Urinary hesitancy (Acute) Screening for colorectal cancer (Acute) Medical History (Updated 09/04/23 @ 12:31 by ANTWON Feliciano) Hypertension Obesity (BMI 30-39.9) Hyperlipidemia Erectile dysfunction History of prostate cancer Surgical History Colonoscopy - IV Sedation Social History Smoking/Tobacco Use Status: Former Tobacco Use Quit Date: 07/23/68 Smoking risk assessment performed?: Yes Alcohol Intake: former Drug use: Never Substance use type: does not use Housing: house Do you feel safe at home: Yes Do you feel safe in your relationship?: Yes PAWSS Have you Been Recently Intoxicated or Drunk Within the Last 30 days?: No Have you Ever Experienced Previous Episodes of Alcohol Withdrawal?: No Have you ever Experienced Withdrawal Seizures?: No Have you ever Experienced Delirium Tremens(DT)s?: No Have you ever undergone Alcohol Rehabilitation Treatment (i.e, inpt ot outpatient treatment programs)?: No Have you ever Experienced Blackouts?: No Have you ever Combined Alcohol with other Downers within the last 90 days?: No Have you ever Combined Alcohol with any other Substance of Abuse during the last 90 days?: No Result: 0 Discharge Plan Disposition Patient Disposition: Home Discharge Details Clinical Impression: Malaise, Anemia of chronic disease, Cellulitis, wound, post-operative Primary Care Provider: Fernando Koehler ED Provider: Palak Sosa Home Meds and New Rx's Prescriptions: New levofloxacin 750 mg tablet 750 mg PO Q24H 5 Days Qty: 5 0RF Continued lisinopril 20 mg tablet 20 mg PO HS triamcinolone acetonide 0.1 % cream 1 applic topical BID oxybutynin chloride 10 mg tablet extended release 24hr 10 mg PO DAILY Hold Instructions: Home Medication placed on hold at Doctor's office atorvastatin 20 mg tablet 20 mg PO HS multivitamin [Daily Multi-Vitamin] 1 EACH tablet 1 tab PO DAILY aspirin [Aspir-81] 81 MG tablet,delayed release (DR/EC) 81 mg PO DAILY naproxen sodium [Aleve] 220 MG tablet 220 mg PO DAILY PRN cholecalciferol (vitamin D3) [Vitamin D3] 1,000 UNIT capsule 1 cap PO DAILY bupropion HCl 300 mg tablet extended release 24 hr 300 mg PO DAILY Patient Comments: TAKE ONE TABLET BY MOUTH EVERY DAY lactulose [Constulose] 10 gram/15 mL solution 10 g PO BID Patient Comments: TAKE 15ML BY MOUTH TWO TIMES A DAY NEEDED levofloxacin 750 mg tablet 750 mg PO DAILY pantoprazole 40 mg tablet,delayed release (DR/EC) 40 mg PO DAILY Patient Comments: TAKE ONE TABLET BY MOUTH EVERY DAY ondansetron 4 mg tablet,disintegrating 4 mg PO Q8H PRN Patient Comments: TAKE 1 TABLET BY MOUTH EVERY 8 HOURS NEEDED FOR NAUSEA prochlorperazine maleate 10 mg tablet 10 mg PO Q6H PRN Patient Comments: TAKE ONE TABLET BY MOUTH EVERY 6 HOURS NEEDED FOR NAUSEA hhrnuo-ewpvmtzr-ivtnmll 25,000-85,000- 136,000 unit capsule,delayed release(DR/EC) 1 cap PO TID Zenpep 25,000-79,000- 105,000 unit capsule,delayed release(DR/EC) 1 cap PO TID Patient Comments: TAKE ONE CAPSULE BY MOUTH THREE TIMES A DAY BEFORE MEALS acetaminophen 325 mg capsule See Rx Instructions PO .COMPLEX PRN Rx Instructions: 975mg orally Q8h PRN; Discharge Instructions Instructions: Cellulitis (ED), Anemia (ED) Additional Instructions: Continue taking the antibiotic 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
[2023-09-07 23:38] LABS: Thiamine (Vitamin B1), WB 226 nmol/L (70-180)
== END 2023-09-04 12:59 | disposition home or self-care (01) ==
PROVIDERS: Emergency Provider Physician Assistant; PCP Family Medicine
DX: R53.81 Other malaise (principal); D63.8 Anemia in other chronic diseases classified elsewhere; T81.41XA Infection following a procedure, superficial incisional surgical site, initial encounter; L03.311 Cellulitis of abdominal wall; I10 Essential (primary) hypertension; E78.5 Hyperlipidemia, unspecified; Z85.46 Personal history of malignant neoplasm of prostate; Z79.82 Long term (current) use of aspirin; Z79.899 Other long term (current) drug therapy; Z87.891 Personal history of nicotine dependence
CPT/HCPCS: 80053; 93005; 96360; 99284; 80320; 81003; 83735; 84100; 84425; 84443; 84484; 85025; 93010

== ENCOUNTER 2023-09-07 14:15 | Outpatient (CLI) | payer MEDICARE, SELFPAY ==
[2023-09-07 12:43] LABS: Abs Immature Grans 0.01 10^3/uL (0.0-0.06); Absolute Basophil Count 0.05 10^3/uL (0.0-0.2); Absolute Eosinophil Count 0.22 10^3/uL (0.0-0.7); Absolute Lymphocyte Count 0.96 10^3/uL (1.2-3.4); Absolute Neutrophil Count 5.03 10^3/uL (1.2-6.7); Basophils % 0.7; Eosinophils % 3.2; HCT 28.5 % (40.0-50.0); Immature Grans % 0.1; MCH 29.6 pg (27.0-33.0); MCHC 31.6 % (32.0-36.0); MCV 94 fL (80-95); MPV 8.7 fL (8.0-11.0); Monocytes % 8.7; Neutrophils % 73.3; Platelet Count 278 10^3/uL (130-400); RBC 3.04 10^6/uL (4.36-5.78); RDW 16.9 % (11.8-14.1); RDW-SD 57.2 fL; WBC 6.87 10^3/uL (4.4-10.8)
[2023-09-07 13:04] LABS: ALT 33 U/L (16-63); AST 24 U/L (15-37); Albumin 2.8 g/dL (3.4-5.0); Alkaline Phosphatase 178 U/L (46-116); Anion Gap 10.1 mmol/L (3-11); BUN 9 mg/dL (7-18); Bilirubin, Total 0.3 mg/dL (0.2-1.0); CO2 25.9 mmol/L (21.0-32.0); Calcium 8.6 mg/dL (8.5-10.1); Chloride 104 mmol/L (98-107); Estimated GFR 78.98 (mL/min/1.73m2); Glucose 103 mg/dL (74-106); Potassium 3.6 mmol/L (3.5-5.1); Sodium 140 mmol/L (136-145); Total Protein 6.8 g/dL (6.4-8.2)
== END 2023-09-07 14:16 | disposition home or self-care (01) ==
LOC: LBO 14:15
PROVIDERS: PCP Family Medicine; Visit Provider Internal Medicine Hematology & Oncology
DX: C22.1 Intrahepatic bile duct carcinoma (principal)
CPT/HCPCS: 36415; 80053; 85025

== ENCOUNTER 2023-09-19 08:57 | Emergency (ER) | payer MEDICARE, SELFPAY ==
[2023-09-19] VITALS (84 sets, daily range): BP systolic 67–128; BP diastolic 44–83; PULSE 80–96; RESP 13–32; TEMP 36.6–36.9; O2SAT 95–100
--- NOTE | 2023-09-19 09:00 | RT.EKG_ITS ---
APPROVED REPORT Exam: Resting ECG Reason for Exam: near syncope Patient Location: E HR:86 bpm ECG Measurements Heart Rate 86 AXIS OR 163 P 42 QRSd 133 QRS -53 QT 406 T 33 QTc 487 Conclusion Sinus rhythm...normal P axis, V-rate 60- 99 RBBB and LAFB...QRSd >120mS, axis(-40,240) Sinus rhythm with RBBB and LAFB. No change from pirior 09/04/23. WD
--- NOTE | 2023-09-19 09:11 | W.ED.GENAD ---
Discharge Plan Disposition Patient Disposition: Transfer-Acute Inpatient Care Specific Acute Inpt Facility: [facility] Condition: Critical Discharge Details Chief Complaint: Dizzy/Sync Clinical Impression: Near syncope, Symptomatic anemia, Heme positive stool, Arterial hemorrhage Primary Care Provider: Fernando Koehler ED Provider: Kristen Pantoja Home Meds and New Rx's Prescriptions: No Action lisinopril 20 mg tablet 20 mg PO HS triamcinolone acetonide 0.1 % cream 1 applic topical BID PRN oxybutynin chloride 10 mg tablet extended release 24hr 10 mg PO DAILY Hold Instructions: Home Medication placed on hold at Doctor's office atorvastatin 20 mg tablet 20 mg PO HS multivitamin [Daily Multi-Vitamin] 1 EACH tablet 1 tab PO DAILY aspirin [Aspir-81] 81 MG tablet,delayed release (DR/EC) 81 mg PO DAILY naproxen sodium [Aleve] 220 MG tablet 220 mg PO DAILY PRN cholecalciferol (vitamin D3) [Vitamin D3] 1,000 UNIT capsule 1 cap PO DAILY bupropion HCl 300 mg tablet extended release 24 hr 300 mg PO DAILY Patient Comments: TAKE ONE TABLET BY MOUTH EVERY DAY lactulose [Constulose] 10 gram/15 mL solution 10 g PO BID Patient Comments: TAKE 15ML BY MOUTH TWO TIMES A DAY NEEDED pantoprazole 40 mg tablet,delayed release (DR/EC) 40 mg PO DAILY Patient Comments: TAKE ONE TABLET BY MOUTH EVERY DAY ondansetron 4 mg tablet,disintegrating 4 mg PO Q8H PRN Patient Comments: TAKE 1 TABLET BY MOUTH EVERY 8 HOURS NEEDED FOR NAUSEA prochlorperazine maleate 10 mg tablet 10 mg PO Q6H PRN Patient Comments: TAKE ONE TABLET BY MOUTH EVERY 6 HOURS NEEDED FOR NAUSEA lnpkus-dgcddngs-dbcmqsa 25,000-85,000- 136,000 unit capsule,delayed release(DR/EC) 1 cap PO TID Zenpep 25,000-79,000- 105,000 unit capsule,delayed release(DR/EC) 1 cap PO TID Patient Comments: TAKE ONE CAPSULE BY MOUTH THREE TIMES A DAY BEFORE MEALS acetaminophen 325 mg capsule See Rx Instructions PO .COMPLEX PRN Rx Instructions: 975mg orally Q8h PRN; Discharge Data Discharge Physician: Kristen Pantoja [facility] General Date/Time Provider Initiated Documentation: 09/19/23 09:03. 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 He is apparently supposed to be starting chemotherapy soon. Patient states that he felt very weak and lightheaded today. He had difficulty getting around. He denies any syncope. He did not hit his head. He did have similar symptoms 2 weeks ago however the symptoms are worse today. He states he has been trying to keep hydrated. He has been eating. Last BM 2 days ago. Denies any abdominal pain. No chest pain or shortness of breath. No fevers. No cough or cold. He states that in the ambulance he noticed that he started shaking throughout his body. He denies any bright red blood per rectum. No gross hematuria, increased urinary frequency or dysuria. He did have recent treatment for post-op incisional abdominal cellulitis which has resolved. He is no longer taking any antibiotics. Patient states that he did require blood transfusion in the past after his surgery. He was initially hypotensive for EMS and received IV fluids en route. Related Data Home Medications Medication Instructions Recorded Confirmed aspirin 81 mg tablet,delayed 81 mg PO DAILY 03/09/14 09/19/23 release (Aspir-) multivitamin (Daily Multi-Vitamin 1 tab PO DAILY 03/09/14 09/19/23 tablet) naproxen sodium 220 mg tablet 220 mg PO DAILY PRN 03/09/14 09/19/23 (Aleve) cholecalciferol (vitamin D3) 25 1 cap PO DAILY 06/25/15 09/19/23 mcg (1,000 unit) capsule (Vitamin D3) atorvastatin 20 mg tablet 20 mg PO HS 02/09/22 09/19/23 oxybutynin chloride 10 mg 10 mg PO DAILY 02/09/22 09/19/23 tablet,extended release 24 hr triamcinolone acetonide 0.1 % 1 applic topical BID PRN 02/09/22 09/19/23 topical cream lisinopril 20 mg tablet 20 mg PO HS 02/27/22 09/19/23 bupropion HCl 300 mg 24 hr tablet, 300 mg PO DAILY 08/28/23 09/19/23 extended release lactulose 10 gram/15 mL oral 10 g PO BID 08/28/23 09/19/23 solution (Constulose) badsdw-nstctxok-eeytpcx 1 cap PO TID 08/28/23 09/19/23 25,000-85,000-136,000 unit capsule,delayed rel ondansetron 4 mg disintegrating 4 mg PO Q8H PRN 08/28/23 09/19/23 tablet pantoprazole 40 mg tablet,delayed 40 mg PO DAILY 08/28/23 09/19/23 release prochlorperazine maleate 10 mg 10 mg PO Q6H PRN 08/28/23 09/19/23 tablet acetaminophen 325 mg capsule See Rx Instructions PO .COMPLEX PRN 09/04/23 09/19/23 xwsxut-godsgskt-jwjgymi 1 cap PO TID 09/04/23 09/19/23 25,000-79,000-105,000 unit capsule,delayed rel (Zenpep) Allergies Allergy/AdvReac Type Severity Reaction Status Date / Time mirabegron [From Myrbetriq] AdvReac elevated Verified 09/19/23 09:37 blood pressure General Stated Complaint: Dizzy/Sync SAIMA: 3 Review of Systems Narrative: Remainder of review of systems otherwise negative except for as noted in the HPI x 10. Exam Narrative Exam Narrative: General: non-toxic, no respiratory distress, comfortable, pale HEENT: normocephalic, atraumatic, lids and lashes normal, PERRL, EOMI, anicteric sclera, pale conjunctiva, moist oral mucosa Card: regular rate and rhythm, S1S2, no murmurs, rubs, or gallops Lungs: good air entry, clear to auscultation bilaterally. no wheezes, rales, rhonchi, or retractions Abd: soft, non-tender, non-distended, normal bowel sounds, no rebound or guarding, no peritoneal signs, wound dehiscence to anterior abdomen without surrounding erythema or warmth Musculoskeletal: full range of motion of arms and legs, no tenderness to palpation. no clubbing, cyanosis, or edema Neurologic: GCS 15, speech normal, sensation intact, appropriate for age, strength normal, shaking of extremities Psych: alert and oriented Skin: As above, otherwise no petechiae, no lesions, warm and dry Rectal exam: no masses, normal tone, black stool, guiac positive, heme control normal, no fistulas or fissures Course Vital Signs Vital signs: Vital Signs Temperature 36.6 C 09/19/23 08:56 Pulse 91 H 09/19/23 08:56 Respiratory Rate 18 09/19/23 08:56 Blood Pressure 116/71 09/19/23 08:56 Pulse Oximetry 99 09/19/23 08:56 Temperature 36.6 C 09/19/23 08:56 Temperature Source Temporal Artery Scan 09/19/23 08:56 Pulse 91 H 09/19/23 08:56 Respiratory Rate 18 09/19/23 08:56 Blood Pressure 116/71 09/19/23 08:56 Blood Pressure Position Supine 09/19/23 08:56 Pulse Oximetry 99 09/19/23 08:56 Oxygen Delivery Method Room Air 09/19/23 08:56 Oxygen Flow Rate 0 09/19/23 08:56 Lab/Test Results Lab/Test Results: 09/19/23 09:03 Blood Blood Culture - Pending 09/19/23 09:03 Blood Blood Culture - Pending Medical Decision Making 73-year-old male with history of Whipple [place] and recent abdominal cellulitis presents for evaluation of lightheadedness and weakness. He was initially hypotensive for EMS. Upon he had arrival he is normotensive. He does have some shaking of his extremities and appears very pale. EKG does not show any acute ischemic changes. Laboratory studies show that patient is anemic. Rectal exam was performed and patient is heme positive. He has not no episodes of bright red blood. Given the degree of anemia and his symptoms he will require blood transfusion. Consent form was completed. CT bleeding study was performed and shows arterial bleeding at the anastomosis of his pancreas and duodenum. Upon return from CT patient had episode of significant hypotension with blood pressure going down into the 50s. He was awake and alert during this episode. He received some increased IV fluids and another unit of packed red blood cells. His blood pressure did slowly improve. When blood pressure had normalized I did confirm with patient that he is a DNR/DNI. Given his history of alcohol use and unknown history of varices IV Protonix was ordered. IV octreotide also started. Patient continued to have some labile blood pressure. Third unit of packed red blood cells was started. FFP was given. I was able to speak with surgeon Dr. England who accepts patient in transfer. Patient will go directly to the ER. Unfortunately helicopters are not flying today secondary to weather. He will go by ground crew. He will be sent with blood. I did notify patient's Accordion Tuner Steven Castaneda at [phone] at patient's request. Quality:SDOH Health Related Social Needs: No Data to Display Critical Care Time Critical Care Time Attestation: CRITICAL CARE Total critical care time: 80 minutes Critical care concerns: GI bleed, hypotension Critical care interventions: IV fluids, blood transfusion, FFP, Protonix, octreotide, learning consultant discussion, record review Total critical care time included the assessment and discussions as described in the emergency department history, physical, and medical decision making. The critical care time provided excludes separately billable procedures. PFSH All Active Problems (Updated 09/19/23 @ 12:46 by Kristen Pantoja MD) Arterial hemorrhage (Acute) Heme positive stool (Acute) Symptomatic anemia (Acute) Near syncope (Acute) Cellulitis, wound, post-operative (Acute) Anemia of chronic disease (Acute) Malaise (Acute) Dehydration (Acute) Prostate cancer (Chronic) Situational anxiety (Acute) Dysthymia (Acute) Generalized social phobia (Acute) Alcohol abuse (Chronic) Chronic back pain (Acute) Sleep disturbance (Acute) Urinary incontinence (Acute) Rotator cuff syndrome (Acute) Nocturnal leg cramps (Acute) Memory impairment (Acute) Orthostasis (Acute) Hematuria (Acute) Urinary hesitancy (Acute) Screening for colorectal cancer (Acute) Medical History (Updated 09/19/23 @ 12:46 by Kristen Pantoja MD) Hypertension Obesity (BMI 30-39.9) Hyperlipidemia Erectile dysfunction History of prostate cancer Surgical History Colonoscopy - IV Sedation Social History Smoking/Tobacco Use Status: Former Tobacco Use Quit Date: 07/23/68 Smoking risk assessment performed?: Yes Alcohol Intake: former Drug use: Never Substance use type: does not use Housing: house Do you feel safe at home: Yes Do you feel safe in your relationship?: Yes
[2023-09-19 09:12] LABS: Abs Immature Grans 0.02 10^3/uL (0.0-0.06); Absolute Basophil Count 0.04 10^3/uL (0.0-0.2); Absolute Eosinophil Count 0.08 10^3/uL (0.0-0.7); Absolute Lymphocyte Count 0.47 10^3/uL (1.2-3.4); Absolute Monocyte Count 0.53 10^3/uL (0.1-0.8); Absolute Neutrophil Count 4.61 10^3/uL (1.2-6.7); Basophils % 0.7; Eosinophils % 1.4; Immature Grans % 0.3; Lymphocytes % 8.2; MCH 29.6 pg (27.0-33.0); MCHC 32.3 % (32.0-36.0); MCV 92 fL (80-95); MPV 10.3 fL (8.0-11.0); Monocytes % 9.2; Neutrophils % 80.2; Platelet Count 169 10^3/uL (130-400); RBC 2.16 10^6/uL (4.36-5.78); RDW 16.2 % (11.8-14.1); RDW-SD 55.3 fL; WBC 5.75 10^3/uL (4.4-10.8)
[2023-09-19 09:16] LABS: HGB 6.4 g/dL (13.5-17.5)
[2023-09-19 09:17] LABS: HCT 19.8 % (40.0-50.0); Lactate 2.2 mmol/L (0.6-1.4)
--- NOTE | 2023-09-19 09:24 | DI.RAD_ITS ---
Exam(s) XR PORTABLE CHEST AP EXAM: XR PORTABLE CHEST AP CLINICAL HISTORY: near syncope TECHNIQUE: 2D digital imaging was performed of the chest. One image was obtained. An AP view was ob tained. COMPARISON: No exams were available for comparison FINDINGS: MEDIASTINUM: Normal. HEART: Normal. PULMONARY VASCULATURE: Normal. LUNGS: Clear. PLEURAL SPACE: No pleural effusion or pneumothorax. BONE:Within normal limits for the patient's age. OTHER FINDINGS:There is elevation of the right hemidiaphragm. IMPRESSION: No acute pulmonary findings. DATA REPOSITORY: RADIATION DOSE DELIVERED:
[2023-09-19 09:36] LABS: INR 1.2 (0.9-1.1); Prothrombin Time 12.1 sec (9.1-11.1)
[2023-09-19 09:40] LABS: ALT 313 U/L (16-63); AST 286 U/L (15-37); Albumin 2.2 g/dL (3.4-5.0); Alkaline Phosphatase 257 U/L (46-116); Anion Gap 9.8 mmol/L (3-11); BUN 18 mg/dL (7-18); Bilirubin, Total 0.5 mg/dL (0.2-1.0); CO2 23.2 mmol/L (21.0-32.0); Calcium 7.8 mg/dL (8.5-10.1); Chloride 107 mmol/L (98-107); Estimated GFR 78.98 (mL/min/1.73m2); Glucose 138 mg/dL (74-106); Magnesium 1.6 mg/dL (1.8-2.4); Sodium 140 mmol/L (136-145); Total Protein 4.9 g/dL (6.4-8.2); Troponin I < 50 ng/L (< or =60)
[2023-09-19 09:42] LABS: Lipase > 375 U/L (16-77)
[2023-09-19] MEDS: Normal Saline 1,000 ML 1000 ML IV ×2 (09:45→11:55)
[2023-09-19] MEDS: MAGNESIUM SULFATE 1 GM/100 ML BAG IVPB (09:50)
[2023-09-19 10:01] LABS: ETHANOL BLOOD < 3.0 mg/dL (<10)
--- NOTE | 2023-09-19 10:34 | DI.CT_ITS ---
Exam(s) CT ABDOMEN PELVIS CTA EXAM: CT ABDOMEN PELVIS CTA CLINICAL HISTORY: GI Bleed, recent Whipple. TECHNIQUE: Imaging Protocol: Axial CT angiography was performed with multi-slice acquisition and m ulti-planar and/or 3D reconstructions. CONTRAST MATERIAL: Intravenous: Omnipaque 350 Contrast volume:100mL Oral: No COMPARISON: CT CT ABDOMEN PELVIS W from 04/20/[address] ABDOMEN PELVIS W from 08/28/2023 CR XR PORTABLE CHEST AP from 09/19/2023 FINDINGS: ABDOMEN AND PELVIS: Abdomen: Celiac axis/mesenteric arteries: No evidence of occlusion or significant stenosis. Renal Arteries: No evidence of occlusion or significant stenosis. Atherosclerosis at the origins of t he renal arteries, left greater than right. Aorta: No evidence of occlusion or significant stenosis. No aneurysm or dissection. Atherosclerotic calcification is present. Pelvis: Iliac Arteries: No evidence of occlusion or significant stenosis. Atherosclerotic calcification is p resent. Common Femoral Arteries: No evidence of occlusion or significant stenosis. Sclerotic calcification i s present. ABDOMEN: Lung bases: Coronary artery calcifications and/or stents are present. There is calcification of the mitral valve. There is elevation of the right hemidiaphragm with scarring or atelectasis seen in the right middle and right lower lobes. No pulmonary nodules are seen in the lung bases. Liver: Normal density. No measurable mass. Portal, Superior Mesenteric, and Splenic Veins: Unremarkable. Gallbladder and Biliary Tract: The fluid collection seen in the gallbladder fossa now measures 1.9 x 1.5 cm (series 18, image 37) compared to a 2.7 x 1.6 cm (series 7, image 38). No significant biliary ductal dilatation is seen. Pancreas: The patient is status post Whipple procedure. The residual pancreas is unremarkable. No p eripancreatic fluid collection is seen. No pancreatic mass is identified. There is an area of hyper density which is seen on the arterial images at the pancreaticoduodenal anastomosis which was not pre sent on the noncontrast portion of this examination suspicious for hemorrhage. It appears mildly les s dense on the subsequent venous images. Spleen: Normal. Adrenals: No masses seen. Kidneys: Normal size, contour and axis. No radiodense stones or obstructive uropathy. There is a stab le simple cyst in the superior pole of the left kidney. No follow-up is recommended. Bowel: No obstruction or bowel wall thickening. There is a moderate amount of stool in the colon. No evidence of appendicitis. Postsurgical changes are again seen in the stomach and small bowel. Peritoneal Cavity: No ascites, collection or mesenteric inflammatory response. No free air. Lymph Nodes: Within normal limits. Bones: Within normal limits for the patient's age . Soft Tissues: There has been continued decrease in size of the air in fluid in the surgical site in t he anterior abdominal wall. There is a small 1 cm air-fluid collection in the anterior abdominal wal l now (series 15, image 535). There is a fat and fluid containing right inguinal hernia and a small fat containing left inguinal hernia. PELVIS: Bladder: Symmetric distention, no gross wall thickening. Reproductive Organs: Prostatic seeds are in place. Lymph Nodes: Within normal limits. Bones: Within normal limits. IMPRESSION: 1. Area of hyperdensity seen on the arterial phase, but not present on the noncontrast phase, at the pancreaticoduodenal anastomosis suspicious for hemorrhage. Mass cannot be excluded. 2. Findings of a Whipple procedure. 3. Interval decrease in size of the anterior abdominal wall fluid collection in the postsurgical bed. 4. Please see the above discussion for complete details. 5. Findings were discussed with Dr. Busch at 11:40 a.m. on 09/19/2023. RADIATION DOSE DELIVERED: 2,444.32mGy.cm Total DLP DATA REPOSITORY: All CT scans at this facility are submitted to the National Radiology Data Registry (NRDR) Dose Index Registry (DIR) with the [employer] (ACR). RADIATION OPTIMIZATION: All CT scans at this facility use at least one of these dose optimization te chniques: automated exposure control; mA and/or kV adjustment per patient size (includes targeted exa ms where dose is matched to clinical indication); or iterative reconstruction.
[2023-09-19] MEDS: Normal Saline - Diluent 50 ML VIAL IJ (10:57)
[2023-09-19] MEDS: Omnipaque 350 MG/ML 100 ML BTL IJ (10:58)
[2023-09-19 11:40] LABS: Abs Immature Grans 0.03 10^3/uL (0.0-0.06); Absolute Basophil Count 0.03 10^3/uL (0.0-0.2); Absolute Eosinophil Count 0.07 10^3/uL (0.0-0.7); Absolute Lymphocyte Count 0.95 10^3/uL (1.2-3.4); Absolute Monocyte Count 0.39 10^3/uL (0.1-0.8); Absolute Neutrophil Count 5.88 10^3/uL (1.2-6.7); Basophils % 0.4; Immature Grans % 0.4; Lymphocytes % 12.9; MCH 30.1 pg (27.0-33.0); MCHC 32.8 % (32.0-36.0); MCV 92 fL (80-95); MPV 10.8 fL (8.0-11.0); Monocytes % 5.3; Platelet Count 164 10^3/uL (130-400); RBC 2.09 10^6/uL (4.36-5.78); RDW 15.9 % (11.8-14.1); RDW-SD 52.8 fL; WBC 7.35 10^3/uL (4.4-10.8)
[2023-09-19 11:42] LABS: HCT 19.2 % (40.0-50.0); HGB 6.3 g/dL (13.5-17.5)
[2023-09-19] MEDS: Pantoprazole 40 MG VIAL IVP (11:53)
[2023-09-19] MEDS: Octreotide 100 MCG/ML VIAL IVP (12:06)
[2023-09-19] MEDS: OCTREOTIDE 250 MCG in Normal Saline 245 ML 50 MCG IV (12:10)
--- NOTE | 2023-09-19 13:31 | NUR.NOTE ---
3 units PRBC's infusing and sent with provider and EMS transport team to complete infusion in route :
[2023-09-19] MEDS: Ondansetron 4 MG/2 ML VIAL (13:58)
--- NOTE | 2023-09-20 00:16 | NUR.NOTE ---
chart accessed per request of dr. odonnell. positive culture per dr. odonnell, results called to [facility] [place]. Nursing Note:
== END 2023-09-19 13:25 | disposition short-term general hospital (02) ==
PROVIDERS: Emergency Provider Emergency Medicine Emergency Medical Services; PCP Family Medicine
DX: D62 Acute posthemorrhagic anemia (principal); R19.5 Other fecal abnormalities; R58 Hemorrhage, not elsewhere classified; E78.5 Hyperlipidemia, unspecified; C22.1 Intrahepatic bile duct carcinoma; Z79.899 Other long term (current) drug therapy
CPT/HCPCS: 36415; 36430; 80053; 83690; 86850; 86900; 86901; 86920; 87040; 87077; 87426; 93005; 96361; 96365; 96375; 99285; 71045; 74174; 80320; 83605; 83735; 84484; 85025; 85610; 87186; 93010; J2354; J2405; J2470; J3475; J3490; P9016; P9059

== ENCOUNTER 2023-09-26 10:20 | Outpatient (CLI) | payer MEDICARE, SELFPAY ==
[2023-09-26 10:54] LABS: Abs Immature Grans 0.03 10^3/uL (0.0-0.06); Absolute Basophil Count 0.08 10^3/uL (0.0-0.2); Absolute Lymphocyte Count 0.55 10^3/uL (1.2-3.4); Absolute Monocyte Count 0.59 10^3/uL (0.1-0.8); Absolute Neutrophil Count 3.57 10^3/uL (1.2-6.7); Basophils % 1.5; Eosinophils % 7.7; HCT 27.6 % (40.0-50.0); Immature Grans % 0.6; Lymphocytes % 10.5; MCH 30.3 pg (27.0-33.0); MCHC 32.6 % (32.0-36.0); MCV 93 fL (80-95); MPV 10.4 fL (8.0-11.0); Monocytes % 11.3; Neutrophils % 68.4; Platelet Count 215 10^3/uL (130-400); RBC 2.97 10^6/uL (4.36-5.78); RDW 14.7 % (11.8-14.1); RDW-SD 48.1 fL; WBC 5.22 10^3/uL (4.4-10.8)
[2023-09-26 11:23] LABS: ALT 38 U/L (16-63); AST 19 U/L (15-37); Albumin 2.7 g/dL (3.4-5.0); Alkaline Phosphatase 136 U/L (46-116); BUN 7 mg/dL (7-18); Bilirubin, Total 0.4 mg/dL (0.2-1.0); CREATININE 1.1 mg/dL (0.70-1.30); Calcium 8.2 mg/dL (8.5-10.1); Chloride 107 mmol/L (98-107); Estimated GFR 70.44 (mL/min/1.73m2); Glucose 113 mg/dL (74-106); Potassium 4.1 mmol/L (3.5-5.1); Sodium 142 mmol/L (136-145)
[2023-09-26 19:46] LABS: CA 19-9 12 U/mL (<35)
== END 2023-09-26 10:21 | disposition home or self-care (01) ==
LOC: LBO 10:20
PROVIDERS: PCP Family Medicine; Visit Provider Internal Medicine Hematology & Oncology
DX: C22.1 Intrahepatic bile duct carcinoma (principal)
CPT/HCPCS: 36415; 80053; 85025; 86301

== ENCOUNTER 2023-09-28 12:46 | Outpatient (CLI) | payer MEDICARE, SELFPAY ==
[2023-09-28 09:03] LABS: Abs Immature Grans 0.02 10^3/uL (0.0-0.06); Absolute Basophil Count 0.09 10^3/uL (0.0-0.2); Absolute Lymphocyte Count 0.63 10^3/uL (1.2-3.4); Absolute Monocyte Count 0.59 10^3/uL (0.1-0.8); Absolute Neutrophil Count 3.22 10^3/uL (1.2-6.7); Basophils % 1.8; Eosinophils % 8.1; HGB 9.6 g/dL (13.5-17.5); Immature Grans % 0.4; Lymphocytes % 12.7; MCH 29.7 pg (27.0-33.0); MCV 93 fL (80-95); MPV 9.4 fL (8.0-11.0); Monocytes % 11.9; Neutrophils % 65.1; Platelet Count 269 10^3/uL (130-400); RBC 3.23 10^6/uL (4.36-5.78); RDW 14.8 % (11.8-14.1); RDW-SD 49.1 fL; WBC 4.95 10^3/uL (4.4-10.8)
== END 2023-09-28 12:47 | disposition home or self-care (01) ==
LOC: LBO 12:46
PROVIDERS: PCP Family Medicine; Visit Provider Internal Medicine Hematology & Oncology
DX: C22.1 Intrahepatic bile duct carcinoma (principal)
CPT/HCPCS: 36415; 86850; 86900; 86901; 85025

== ENCOUNTER 2023-10-12 01:56 | Outpatient (CLI) | payer MEDICARE, SELFPAY ==
[2023-10-12 09:13] LABS: Abs Immature Grans 0.01 10^3/uL (0.0-0.06); Absolute Basophil Count 0.08 10^3/uL (0.0-0.2); Absolute Eosinophil Count 0.32 10^3/uL (0.0-0.7); Absolute Lymphocyte Count 0.65 10^3/uL (1.2-3.4); Absolute Monocyte Count 0.47 10^3/uL (0.1-0.8); Absolute Neutrophil Count 3.02 10^3/uL (1.2-6.7); Basophils % 1.8; HCT 37.7 % (40.0-50.0); HGB 11.9 g/dL (13.5-17.5); Immature Grans % 0.2; Lymphocytes % 14.3; MCH 29.8 pg (27.0-33.0); MCHC 31.6 % (32.0-36.0); MCV 95 fL (80-95); MPV 9.8 fL (8.0-11.0); Monocytes % 10.3; Neutrophils % 66.4; Platelet Count 194 10^3/uL (130-400); RBC 3.99 10^6/uL (4.36-5.78); RDW 14.6 % (11.8-14.1); RDW-SD 50.4 fL; WBC 4.55 10^3/uL (4.4-10.8)
[2023-10-12 09:41] LABS: ALT 38 U/L (16-63); AST 30 U/L (15-37); Albumin 3.5 g/dL (3.4-5.0); Alkaline Phosphatase 140 U/L (46-116); Anion Gap 11.3 mmol/L (3-11); BUN 15 mg/dL (7-18); Bilirubin, Total 0.5 mg/dL (0.2-1.0); CO2 23.7 mmol/L (21.0-32.0); Calcium 9.2 mg/dL (8.5-10.1); Chloride 108 mmol/L (98-107); Estimated GFR 78.98 (mL/min/1.73m2); Glucose 94 mg/dL (74-106); Potassium 3.8 mmol/L (3.5-5.1); Sodium 143 mmol/L (136-145); Total Protein 7.2 g/dL (6.4-8.2)
[2023-10-15 10:01] LABS: CA 19-9 15 U/mL (<35)
== END 2023-10-12 01:57 | disposition home or self-care (01) ==
LOC: LBO 01:56
PROVIDERS: PCP Family Medicine; Visit Provider Internal Medicine Hematology & Oncology
DX: C22.1 Intrahepatic bile duct carcinoma (principal)
CPT/HCPCS: 36415; 80053; 85025; 86301

== ENCOUNTER 2023-10-19 01:24 | Outpatient (CLI) | payer MEDICARE, SELFPAY ==
[2023-10-19 12:12] LABS: Abs Immature Grans 0.01 10^3/uL (0.0-0.06); Absolute Basophil Count 0.02 10^3/uL (0.0-0.2); Absolute Eosinophil Count 0.09 10^3/uL (0.0-0.7); Absolute Lymphocyte Count 0.36 10^3/uL (1.2-3.4); Absolute Monocyte Count 0.16 10^3/uL (0.1-0.8); Absolute Neutrophil Count 1.46 10^3/uL (1.2-6.7); Eosinophils % 4.3; HCT 33.2 % (40.0-50.0); HGB 10.5 g/dL (13.5-17.5); Immature Grans % 0.5; Lymphocytes % 17.1; MCH 29.5 pg (27.0-33.0); MCHC 31.6 % (32.0-36.0); MCV 93 fL (80-95); MPV 9.5 fL (8.0-11.0); Monocytes % 7.6; Neutrophils % 69.5; Platelet Count 112 10^3/uL (130-400); RBC 3.56 10^6/uL (4.36-5.78); RDW 14.1 % (11.8-14.1); RDW-SD 48.2 fL
[2023-10-19 12:51] LABS: ALT 35 U/L (16-63); AST 24 U/L (15-37); Albumin 3.2 g/dL (3.4-5.0); Alkaline Phosphatase 137 U/L (46-116); Anion Gap 9.5 mmol/L (3-11); BUN 14 mg/dL (7-18); Bilirubin, Total 0.4 mg/dL (0.2-1.0); CO2 26.5 mmol/L (21.0-32.0); Calcium 8.8 mg/dL (8.5-10.1); Chloride 106 mmol/L (98-107); Estimated GFR 78.98 (mL/min/1.73m2); Glucose 104 mg/dL (74-106); Potassium 3.5 mmol/L (3.5-5.1); Sodium 142 mmol/L (136-145); Total Protein 7.1 g/dL (6.4-8.2)
[2023-10-19 20:29] LABS: CA 19-9 14 U/mL (<35)
== END 2023-10-19 01:25 | disposition home or self-care (01) ==
LOC: LBO 01:25
PROVIDERS: PCP Family Medicine; Visit Provider Internal Medicine Hematology & Oncology
DX: C22.1 Intrahepatic bile duct carcinoma (principal)
CPT/HCPCS: 36415; 80053; 85025; 86301

== ENCOUNTER 2023-11-02 01:32 | Outpatient (CLI) | payer MEDICARE, SELFPAY ==
[2023-11-02 09:56] LABS: Abs Immature Grans 0.01 10^3/uL (0.0-0.06); Absolute Basophil Count 0.07 10^3/uL (0.0-0.2); Absolute Eosinophil Count 0.21 10^3/uL (0.0-0.7); Absolute Lymphocyte Count 0.54 10^3/uL (1.2-3.4); Absolute Monocyte Count 0.36 10^3/uL (0.1-0.8); Absolute Neutrophil Count 1.67 10^3/uL (1.2-6.7); Basophils % 2.4; Eosinophils % 7.3; HCT 32.1 % (40.0-50.0); HGB 10.5 g/dL (13.5-17.5); Immature Grans % 0.3; Lymphocytes % 18.9; MCH 30.4 pg (27.0-33.0); MCHC 32.7 % (32.0-36.0); MCV 93 fL (80-95); MPV 9.5 fL (8.0-11.0); Monocytes % 12.6; Neutrophils % 58.5; Platelet Count 299 10^3/uL (130-400); RBC 3.45 10^6/uL (4.36-5.78); RDW 16.6 % (11.8-14.1); RDW-SD 48.9 fL; WBC 2.86 10^3/uL (4.4-10.8)
[2023-11-02 10:17] LABS: ALT 43 U/L (16-63); AST 36 U/L (15-37); Albumin 3.4 g/dL (3.4-5.0); Alkaline Phosphatase 154 U/L (46-116); Anion Gap 8.5 mmol/L (3-11); BUN 11 mg/dL (7-18); Bilirubin, Total 0.4 mg/dL (0.2-1.0); CO2 26.5 mmol/L (21.0-32.0); Calcium 8.8 mg/dL (8.5-10.1); Chloride 108 mmol/L (98-107); Estimated GFR 78.98 (mL/min/1.73m2); Glucose 99 mg/dL (74-106); Potassium 3.5 mmol/L (3.5-5.1); Sodium 143 mmol/L (136-145); Total Protein 6.9 g/dL (6.4-8.2)
[2023-11-02 21:18] LABS: CA 19-9 4 U/mL (<35)
== END 2023-11-02 01:33 | disposition home or self-care (01) ==
LOC: LBO 01:33
PROVIDERS: PCP Family Medicine; Visit Provider Internal Medicine Hematology & Oncology
DX: C22.1 Intrahepatic bile duct carcinoma (principal)
CPT/HCPCS: 36415; 80053; 85025; 86301

== ENCOUNTER 2023-11-09 03:15 | Outpatient (CLI) | payer MEDICARE, SELFPAY ==
[2023-11-09 10:19] LABS: Absolute Basophil Count 0.02 10^3/uL (0.0-0.2); Absolute Eosinophil Count 0.04 10^3/uL (0.0-0.7); Absolute Lymphocyte Count 0.48 10^3/uL (1.2-3.4); Absolute Monocyte Count 0.25 10^3/uL (0.1-0.8); Basophils % 1.6; Eosinophils % 3.1; HCT 28.4 % (40.0-50.0); HGB 9.6 g/dL (13.5-17.5); Lymphocytes % 37.8; MCH 31.1 pg (27.0-33.0); MCHC 33.8 % (32.0-36.0); MCV 92 fL (80-95); MPV 10.2 fL (8.0-11.0); Monocytes % 19.7; Neutrophils % 37.8; Platelet Count 141 10^3/uL (130-400); RBC 3.09 10^6/uL (4.36-5.78); RDW 16.1 % (11.8-14.1); RDW-SD 50.8 fL
[2023-11-09 10:35] LABS: ALT 33 U/L (16-63); AST 23 U/L (15-37); Alkaline Phosphatase 132 U/L (46-116); Anion Gap 11.4 mmol/L (3-11); BUN 11 mg/dL (7-18); Bilirubin, Total 0.3 mg/dL (0.2-1.0); CO2 24.6 mmol/L (21.0-32.0); Calcium 8.7 mg/dL (8.5-10.1); Chloride 107 mmol/L (98-107); Estimated GFR 78.98 (mL/min/1.73m2); Glucose 122 mg/dL (74-106); Potassium 3.5 mmol/L (3.5-5.1); Sodium 143 mmol/L (136-145); Total Protein 6.6 g/dL (6.4-8.2); WBC 1.27 10^3/uL (4.4-10.8)
[2023-11-09 10:37] LABS: Absolute Neutrophil Count 0.48 10^3/uL (1.2-6.7); Diff Comment Agrees w/ Instrument; RBC Morphology Normal
[2023-11-12 11:45] LABS: CA 19-9 17 U/mL (<35)
== END 2023-11-09 03:16 | disposition home or self-care (01) ==
LOC: LBO 03:16
PROVIDERS: PCP Family Medicine; Visit Provider Internal Medicine Hematology & Oncology
DX: C22.1 Intrahepatic bile duct carcinoma (principal)
CPT/HCPCS: 36415; 80053; 85025; 86301

== ENCOUNTER 2023-11-16 12:35 | Outpatient (CLI) | payer MEDICARE, SELFPAY ==
[2023-11-16 10:17] LABS: Abs Immature Grans 0.01 10^3/uL (0.0-0.06); Absolute Basophil Count 0.05 10^3/uL (0.0-0.2); Absolute Eosinophil Count 0.25 10^3/uL (0.0-0.7); Absolute Lymphocyte Count 0.59 10^3/uL (1.2-3.4); Absolute Monocyte Count 0.54 10^3/uL (0.1-0.8); Absolute Neutrophil Count 2.41 10^3/uL (1.2-6.7); Basophils % 1.3; Eosinophils % 6.5; HCT 31.8 % (40.0-50.0); HGB 10.4 g/dL (13.5-17.5); Immature Grans % 0.3; Lymphocytes % 15.3; MCH 30.6 pg (27.0-33.0); MCHC 32.7 % (32.0-36.0); MCV 94 fL (80-95); MPV 9.7 fL (8.0-11.0); Neutrophils % 62.6; Platelet Count 230 10^3/uL (130-400); RDW 18.2 % (11.8-14.1); RDW-SD 59.7 fL; WBC 3.85 10^3/uL (4.4-10.8)
[2023-11-16 10:34] LABS: ALT 46 U/L (16-63); AST 37 U/L (15-37); Albumin 3.4 g/dL (3.4-5.0); Alkaline Phosphatase 149 U/L (46-116); Anion Gap 11.6 mmol/L (3-11); BUN 9 mg/dL (7-18); Bilirubin, Total 0.4 mg/dL (0.2-1.0); CO2 24.4 mmol/L (21.0-32.0); CREATININE 1.2 mg/dL (0.70-1.30); Calcium 8.7 mg/dL (8.5-10.1); Chloride 108 mmol/L (98-107); Estimated GFR 63.46 (mL/min/1.73m2); Glucose 107 mg/dL (74-106); Potassium 3.9 mmol/L (3.5-5.1); Sodium 144 mmol/L (136-145); Total Protein 6.9 g/dL (6.4-8.2)
[2023-11-16 20:47] LABS: CA 19-9 14 U/mL (<35)
== END 2023-11-16 12:36 | disposition home or self-care (01) ==
LOC: LBO 12:36
PROVIDERS: PCP Family Medicine; Visit Provider Internal Medicine Hematology & Oncology
DX: C22.1 Intrahepatic bile duct carcinoma (principal)
CPT/HCPCS: 36415; 80053; 85025; 86301

== ENCOUNTER 2023-11-23 05:09 | Outpatient (CLI) | payer MEDICARE, SELFPAY ==
[2023-11-23 10:16] LABS: Abs Immature Grans 0.01 10^3/uL (0.0-0.06); Absolute Basophil Count 0.07 10^3/uL (0.0-0.2); Absolute Eosinophil Count 0.24 10^3/uL (0.0-0.7); Absolute Monocyte Count 0.59 10^3/uL (0.1-0.8); Absolute Neutrophil Count 3.19 10^3/uL (1.2-6.7); Basophils % 1.5 %; Eosinophils % 5.1 %; HCT 33.1 % (40.0-50.0); HGB 10.7 g/dL (13.5-17.5); Immature Grans % 0.2 %; Lymphocytes % 12.8 %; MCH 30.4 pg (27.0-33.0); MCHC 32.3 % (32.0-36.0); MCV 94 fL (80-95); MPV 9.2 fL (8.0-11.0); Monocytes % 12.6 %; Neutrophils % 67.8 %; Platelet Count 280 10^3/uL (130-400); RBC 3.52 10^6/uL (4.36-5.78); RDW 18.5 % (11.8-14.1); RDW-SD 63.4 fL
[2023-11-23 10:28] LABS: ALT 37 U/L (16-63); AST 24 U/L (15-37); Albumin 3.4 g/dL (3.4-5.0); Alkaline Phosphatase 170 U/L (46-116); Anion Gap 11.6 mmol/L (3-11); BUN 14 mg/dL (7-18); Bilirubin, Total 0.5 mg/dL (0.2-1.0); CO2 25.4 mmol/L (21.0-32.0); CREATININE 1.2 mg/dL (0.70-1.30); Calcium 8.9 mg/dL (8.5-10.1); Chloride 106 mmol/L (98-107); Estimated GFR 63.46 (mL/min/1.73m2); Glucose 104 mg/dL (74-106); Potassium 4.2 mmol/L (3.5-5.1); Sodium 143 mmol/L (136-145); Total Protein 6.9 g/dL (6.4-8.2)
[2023-11-23 20:28] LABS: CA 19-9 14 U/mL (<35)
== END 2023-11-23 05:10 | disposition home or self-care (01) ==
PROVIDERS: PCP Family Medicine; Visit Provider Internal Medicine Hematology & Oncology
DX: C22.1 Intrahepatic bile duct carcinoma (principal)
CPT/HCPCS: 36415; 80053; 85025; 86301

== ENCOUNTER 2023-11-30 01:45 | Outpatient (CLI) | payer MEDICARE, SELFPAY ==
[2023-11-30 12:48] LABS: Abs Immature Grans 0.01 10^3/uL (0.0-0.06); Absolute Basophil Count 0.07 10^3/uL (0.0-0.2); Absolute Eosinophil Count 0.28 10^3/uL (0.0-0.7); Absolute Lymphocyte Count 0.57 10^3/uL (1.2-3.4); Absolute Monocyte Count 0.56 10^3/uL (0.1-0.8); Absolute Neutrophil Count 3.16 10^3/uL (1.2-6.7); Basophils % 1.5 %; HCT 31.6 % (40.0-50.0); HGB 10.4 g/dL (13.5-17.5); Immature Grans % 0.2 %; Lymphocytes % 12.3 %; MCH 30.8 pg (27.0-33.0); MCHC 32.9 % (32.0-36.0); MCV 94 fL (80-95); MPV 10.4 fL (8.0-11.0); Platelet Count 202 10^3/uL (130-400); RBC 3.38 10^6/uL (4.36-5.78); RDW 18.3 % (11.8-14.1); RDW-SD 62.1 fL; WBC 4.65 10^3/uL (4.4-10.8)
[2023-11-30 13:09] LABS: ALT 50 U/L (16-63); AST 41 U/L (15-37); Albumin 3.2 g/dL (3.4-5.0); Alkaline Phosphatase 152 U/L (46-116); BUN 12 mg/dL (7-18); Bilirubin, Total 0.4 mg/dL (0.2-1.0); CREATININE 1.1 mg/dL (0.70-1.30); Calcium 8.4 mg/dL (8.5-10.1); Chloride 110 mmol/L (98-107); Estimated GFR 70.44 (mL/min/1.73m2); Glucose 108 mg/dL (74-106); Potassium 4.1 mmol/L (3.5-5.1); Sodium 145 mmol/L (136-145); Total Protein 6.6 g/dL (6.4-8.2)
[2023-12-01 00:11] LABS: CA 19-9 16 U/mL (<35)
== END 2023-11-30 01:46 | disposition home or self-care (01) ==
LOC: LBO 01:45
PROVIDERS: PCP Family Medicine; Visit Provider Internal Medicine Hematology & Oncology
DX: C22.1 Intrahepatic bile duct carcinoma (principal)
CPT/HCPCS: 36415; 80053; 85025; 86301

== ENCOUNTER 2023-12-21 01:03 | Outpatient (CLI) | payer MEDICARE, SELFPAY ==
[2023-12-21 13:45] LABS: Abs Immature Grans 0.01 10^3/uL (0.0-0.06); Absolute Basophil Count 0.05 10^3/uL (0.0-0.2); Absolute Eosinophil Count 0.34 10^3/uL (0.0-0.7); Absolute Lymphocyte Count 0.81 10^3/uL (1.2-3.4); Absolute Monocyte Count 0.54 10^3/uL (0.1-0.8); Absolute Neutrophil Count 2.99 10^3/uL (1.2-6.7); Basophils % 1.1 %; Eosinophils % 7.2 %; HCT 32.2 % (40.0-50.0); HGB 10.6 g/dL (13.5-17.5); Immature Grans % 0.2 %; Lymphocytes % 17.1 %; MCH 30.8 pg (27.0-33.0); MCHC 32.9 % (32.0-36.0); MCV 94 fL (80-95); MPV 9.8 fL (8.0-11.0); Monocytes % 11.4 %; Platelet Count 219 10^3/uL (130-400); RBC 3.44 10^6/uL (4.36-5.78); RDW 19.9 % (11.8-14.1); RDW-SD 68.3 fL; WBC 4.74 10^3/uL (4.4-10.8)
[2023-12-21 14:10] LABS: ALT 41 U/L (16-63); AST 25 U/L (15-37); Albumin 3.6 g/dL (3.4-5.0); Alkaline Phosphatase 153 U/L (46-116); Anion Gap 10.6 mmol/L (3-11); BUN 18 mg/dL (7-18); Bilirubin, Total 0.5 mg/dL (0.2-1.0); CO2 26.4 mmol/L (21.0-32.0); Calcium 8.6 mg/dL (8.5-10.1); Chloride 107 mmol/L (98-107); Estimated GFR 78.98 (mL/min/1.73m2); Glucose 91 mg/dL (74-106); Potassium 3.5 mmol/L (3.5-5.1); Sodium 144 mmol/L (136-145); Total Protein 7.1 g/dL (6.4-8.2)
[2023-12-24 12:11] LABS: CA 19-9 15 U/mL (<35)
== END 2023-12-21 01:04 | disposition home or self-care (01) ==
LOC: LBO 01:03
PROVIDERS: PCP Family Medicine; Visit Provider Internal Medicine Hematology & Oncology
DX: C22.1 Intrahepatic bile duct carcinoma (principal)
CPT/HCPCS: 36415; 80053; 85025; 86301

== ENCOUNTER 2024-01-04 13:04 | Outpatient (CLI) | payer MEDICARE, SELFPAY ==
[2024-01-04 10:43] LABS: Abs Immature Grans 0.01 10^3/uL (0.0-0.06); Absolute Basophil Count 0.03 10^3/uL (0.0-0.2); Absolute Eosinophil Count 0.17 10^3/uL (0.0-0.7); Absolute Lymphocyte Count 0.76 10^3/uL (1.2-3.4); Absolute Monocyte Count 0.42 10^3/uL (0.1-0.8); Absolute Neutrophil Count 2.06 10^3/uL (1.2-6.7); Basophils % 0.9 %; Eosinophils % 4.9 %; HCT 30.5 % (40.0-50.0); HGB 9.9 g/dL (13.5-17.5); Immature Grans % 0.3 %; MCH 31.4 pg (27.0-33.0); MCHC 32.5 % (32.0-36.0); MCV 97 fL (80-95); Monocytes % 12.2 %; Neutrophils % 59.7 %; Platelet Count 180 10^3/uL (130-400); RBC 3.15 10^6/uL (4.36-5.78); RDW 20.9 % (11.8-14.1); RDW-SD 74.4 fL; WBC 3.45 10^3/uL (4.4-10.8)
[2024-01-04 10:55] LABS: ALT 41 U/L (16-63); AST 33 U/L (15-37); Albumin 3.4 g/dL (3.4-5.0); Alkaline Phosphatase 172 U/L (46-116); Anion Gap 8.1 mmol/L (3-11); BUN 12 mg/dL (7-18); Bilirubin, Total 0.6 mg/dL (0.2-1.0); CO2 28.9 mmol/L (21.0-32.0); Calcium 8.4 mg/dL (8.5-10.1); Chloride 104 mmol/L (98-107); Estimated GFR 78.98 (mL/min/1.73m2); Glucose 87 mg/dL (74-106); Potassium 3.8 mmol/L (3.5-5.1); Sodium 141 mmol/L (136-145)
[2024-01-04 22:57] LABS: CA 19-9 12 U/mL (<35)
== END 2024-01-04 13:05 | disposition home or self-care (01) ==
LOC: LBO 13:04
PROVIDERS: PCP Family Medicine; Visit Provider Internal Medicine Hematology & Oncology
DX: C22.1 Intrahepatic bile duct carcinoma (principal)
CPT/HCPCS: 36415; 80053; 85025; 86301

== ENCOUNTER 2024-01-30 10:24 | Outpatient (CLI) | payer MEDICARE, SELFPAY ==
[2024-01-30 10:37] LABS: Abs Immature Grans 0.01 10^3/uL (0.0-0.06); Absolute Basophil Count 0.04 10^3/uL (0.0-0.2); Absolute Eosinophil Count 0.27 10^3/uL (0.0-0.7); Absolute Lymphocyte Count 0.79 10^3/uL (1.2-3.4); Absolute Monocyte Count 0.42 10^3/uL (0.1-0.8); Absolute Neutrophil Count 2.57 10^3/uL (1.2-6.7); Eosinophils % 6.6 %; HCT 29.9 % (40.0-50.0); HGB 10.1 g/dL (13.5-17.5); Immature Grans % 0.2 %; Lymphocytes % 19.3 %; MCHC 33.8 % (32.0-36.0); MCV 98 fL (80-95); MPV 10.1 fL (8.0-11.0); Monocytes % 10.2 %; Neutrophils % 62.7 %; Platelet Count 162 10^3/uL (130-400); RBC 3.06 10^6/uL (4.36-5.78); RDW 19.1 % (11.8-14.1); RDW-SD 69.1 fL
[2024-01-30 10:54] LABS: ALT 56 U/L (16-63); AST 53 U/L (15-37); Albumin 3.2 g/dL (3.4-5.0); Alkaline Phosphatase 153 U/L (46-116); Anion Gap 7.1 mmol/L (3-11); BUN 12 mg/dL (7-18); Bilirubin, Total 0.68 mg/dL (0.2-1.0); CO2 27.9 mmol/L (21.0-32.0); Calcium 8.3 mg/dL (8.5-10.1); Chloride 107 mmol/L (98-107); Estimated GFR 78.49 (mL/min/1.73m2); Glucose 147 mg/dL (74-106); Potassium 4.1 mmol/L (3.5-5.1); Sodium 142 mmol/L (136-145); Total Protein 6.6 g/dL (6.4-8.2)
[2024-01-30 19:37] LABS: CA 19-9 17 U/mL (<35)
== END 2024-01-30 10:25 | disposition home or self-care (01) ==
PROVIDERS: PCP Family Medicine; Visit Provider Internal Medicine Hematology & Oncology
DX: C22.1 Intrahepatic bile duct carcinoma (principal)
CPT/HCPCS: 36415; 80053; 85025; 86301

== ENCOUNTER 2024-02-13 01:24 | Outpatient (CLI) | payer MEDICARE, SELFPAY ==
[2024-02-13 12:50] LABS: Abs Immature Grans 0.01 10^3/uL (0.0-0.06); Absolute Basophil Count 0.04 10^3/uL (0.0-0.2); Absolute Lymphocyte Count 0.72 10^3/uL (1.2-3.4); Absolute Monocyte Count 0.49 10^3/uL (0.1-0.8); Absolute Neutrophil Count 2.48 10^3/uL (1.2-6.7); Eosinophils % 5.1 %; HCT 29.6 % (40.0-50.0); HGB 9.8 g/dL (13.5-17.5); Immature Grans % 0.3 %; Lymphocytes % 18.3 %; MCH 33.8 pg (27.0-33.0); MCHC 33.1 % (32.0-36.0); MCV 102 fL (80-95); MPV 9.7 fL (8.0-11.0); Monocytes % 12.4 %; Neutrophils % 62.9 %; Platelet Count 172 10^3/uL (130-400); RDW 19.9 % (11.8-14.1); RDW-SD 74.2 fL; WBC 3.94 10^3/uL (4.4-10.8)
[2024-02-13 13:03] LABS: ALT 35 U/L (16-63); AST 38 U/L (15-37); Albumin 3.3 g/dL (3.4-5.0); Alkaline Phosphatase 152 U/L (46-116); Anion Gap 6.7 mmol/L (3-11); BUN 17 mg/dL (7-18); Bilirubin, Total 0.47 mg/dL (0.2-1.0); CO2 29.3 mmol/L (21.0-32.0); Calcium 8.4 mg/dL (8.5-10.1); Chloride 109 mmol/L (98-107); Estimated GFR 78.49 (mL/min/1.73m2); Glucose 84 mg/dL (74-106); Potassium 4.1 mmol/L (3.5-5.1); Sodium 145 mmol/L (136-145); Total Protein 6.6 g/dL (6.4-8.2)
[2024-02-15 09:40] LABS: CA 19-9 18 U/mL (<35)
== END 2024-02-13 01:25 | disposition home or self-care (01) ==
LOC: LBO 01:24
PROVIDERS: PCP Family Medicine; Visit Provider Internal Medicine Hematology & Oncology
DX: C22.1 Intrahepatic bile duct carcinoma (principal)
CPT/HCPCS: 36415; 80053; 85025; 86301

== ENCOUNTER 2024-02-29 01:14 | Outpatient (CLI) | payer MEDICARE, SELFPAY ==
[2024-02-29 13:50] LABS: Abs Immature Grans 0.01 10^3/uL (0.0-0.06); Absolute Basophil Count 0.06 10^3/uL (0.0-0.2); Absolute Eosinophil Count 0.24 10^3/uL (0.0-0.7); Absolute Lymphocyte Count 0.83 10^3/uL (1.2-3.4); Absolute Monocyte Count 0.59 10^3/uL (0.1-0.8); Absolute Neutrophil Count 2.82 10^3/uL (1.2-6.7); Basophils % 1.3 %; Eosinophils % 5.3 %; HCT 32.6 % (40.0-50.0); HGB 10.6 g/dL (13.5-17.5); Immature Grans % 0.2 %; Lymphocytes % 18.2 %; MCH 33.3 pg (27.0-33.0); MCHC 32.5 % (32.0-36.0); MCV 103 fL (80-95); MPV 10.2 fL (8.0-11.0); Platelet Count 177 10^3/uL (130-400); RBC 3.18 10^6/uL (4.36-5.78); RDW 18.8 % (11.8-14.1); RDW-SD 72.6 fL; WBC 4.55 10^3/uL (4.4-10.8)
[2024-02-29 14:05] LABS: ALT 41 U/L (16-63); AST 37 U/L (15-37); Albumin 3.7 g/dL (3.4-5.0); Alkaline Phosphatase 157 U/L (46-116); Anion Gap 8.7 mmol/L (3-11); BUN 19 mg/dL (7-18); Bilirubin, Total 0.55 mg/dL (0.2-1.0); CO2 26.3 mmol/L (21.0-32.0); CREATININE 0.9 mg/dL (0.70-1.30); Calcium 8.7 mg/dL (8.5-10.1); Chloride 106 mmol/L (98-107); Estimated GFR 89.07 (mL/min/1.73m2); Glucose 84 mg/dL (74-106); Sodium 141 mmol/L (136-145)
[2024-03-03 11:14] LABS: CA 19-9 24 U/mL (<35)
== END 2024-02-29 01:15 | disposition home or self-care (01) ==
LOC: LBO 01:14
PROVIDERS: PCP Family Medicine; Visit Provider Internal Medicine Hematology & Oncology
DX: C22.1 Intrahepatic bile duct carcinoma (principal)
CPT/HCPCS: 36415; 80053; 85025; 86301

== ENCOUNTER 2024-04-07 03:24 | Outpatient (CLI) | payer MEDICARE, SELFPAY ==
--- NOTE | 2024-04-07 | DI.CT_ITS ---
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 TECHNIQUE: Imaging Protocol: Axial computed tomography images with coronal and sagittal reformatted images were created and reviewed CONTRAST MATERIAL: Intravenous: Omnipaque 350 Contrast volume:85 ml Oral: yes / COMPARISON: CT CT ABDOMEN PELVIS CTA from 09/19/2023 CR XR PORTABLE CHEST AP from 09/19/2023 FINDINGS: CHEST: Tracheobronchial tree: Patent. Pulmonary parenchyma: No consolidation or dominant measurable mass. Pleura: No effusion or pneumothorax. Mediastinum: Within normal limits. Aorta: Thoracic portion non-dilated. Pulmonary arteries: No visible emboli. Heart: The heart is enlarged. Coronary artery calcifications are present. No pericardial effusion . Bones: Degenerative disc changes with prominent endplate osteophytes.. No lytic or blastic lesions.N o compression fractures. Soft tissues: Unremarkable. ABDOMEN and PELVIS: Liver: Normal density. No measurable mass. Hepatic artery stent appears patent. Portal vein is pat ent. Gallbladder and biliary tract: Status post cholecystectomy. No biliary dilatation. Pancreas: Status post Whipple procedure. No evidence of mass. No abnormal calcifications or inflamm atory process. Spleen: Normal. Kidneys: Normal size, contour and axis. No radiodense stones. No obstructive uropathy. No suspicious masses seen. Adrenal glands: No masses seen. Aorta: Abdominal portion non-dilated. Lymph nodes: Within normal limits. Soft tissues: Some thinning of the anterior abdominal wall in the region of the umbilicus but no ruth k hernia. Of this appears new compared to the prior exam Bladder: Unremarkable. Bowel: No obstruction or bowel wall thickening. Large quantity of stool. Peritoneal cavity: No ascites. No focal collection. No mesenteric inflammatory response. No free ai r. Bones: Unremarkable for age. No lytic or blastic lesions. No compression fractures. Reproductive organs: Within normal limits. IMPRESSION: No evidence of metastatic disease in the chest, abdomen or pelvis. Status post Whipple procedure. No biliary dilatation. Hepatic artery stents and portal vein appear patent. RADIATION DOSE DELIVERED: Total DLP DATA REPOSITORY: All CT scans at this facility are submitted to the National Radiology Data Registry (NRDR) Dose Index Registry (DIR) with the [employer] (ACR). RADIATION OPTIMIZATION: All CT scans at this facility use at least one of these dose optimization te chniques: automated exposure control; mA and/or kV adjustment per patient size (includes targeted exa ms where dose is matched to clinical indication); or iterative reconstruction.
[2024-04-07] MEDS: Barium Sulfate 2% W/V-Creamy Vanilla Smoothie 450 ML BTL PO ×2 (12:38→12:39)
[2024-04-07 13:55] LABS: Abs Immature Grans 0.02 10^3/uL (0.0-0.06); Absolute Basophil Count 0.05 10^3/uL (0.0-0.2); Absolute Eosinophil Count 0.24 10^3/uL (0.0-0.7); Absolute Lymphocyte Count 0.74 10^3/uL (1.2-3.4); Absolute Monocyte Count 0.57 10^3/uL (0.1-0.8); Absolute Neutrophil Count 2.86 10^3/uL (1.2-6.7); Basophils % 1.1 %; Eosinophils % 5.4 %; HCT 30.7 % (40.0-50.0); HGB 9.8 g/dL (13.5-17.5); Immature Grans % 0.4 %; Lymphocytes % 16.5 %; MCH 32.6 pg (27.0-33.0); MCHC 31.9 % (32.0-36.0); MCV 102 fL (80-95); MPV 9.6 fL (8.0-11.0); Monocytes % 12.7 %; Neutrophils % 63.9 %; Platelet Count 177 10^3/uL (130-400); RBC 3.01 10^6/uL (4.36-5.78); RDW 17.3 % (11.8-14.1); RDW-SD 65.8 fL; WBC 4.48 10^3/uL (4.4-10.8)
[2024-04-07 14:14] LABS: ALT 77 U/L (16-63); AST 85 U/L (15-37); Albumin 3.4 g/dL (3.4-5.0); Alkaline Phosphatase 192 U/L (46-116); BUN 13 mg/dL (7-18); Bilirubin, Total 0.59 mg/dL (0.2-1.0); Chloride 106 mmol/L (98-107); Estimated GFR 78.49 (mL/min/1.73m2); Glucose 75 mg/dL (74-106); Sodium 140 mmol/L (136-145)
[2024-04-07] MEDS: Normal Saline - Diluent 50 ML VIAL IJ (15:02)
[2024-04-07] MEDS: Omnipaque 350 MG/ML 100 ML BTL IJ (15:03)
[2024-04-09 12:51] LABS: CA 19-9 35 U/mL (<35)
== END 2024-04-07 03:44 ==
LOC: DI 03:24
PROVIDERS: PCP Family Medicine; Visit Provider Internal Medicine Hematology & Oncology
DX: C22.1 Intrahepatic bile duct carcinoma (principal)
CPT/HCPCS: 74177; 80053; 71260; 85025; 86301; J3490

== ENCOUNTER 2024-05-02 13:50 | Outpatient (CLI) | payer MEDICARE, SELFPAY ==
[2024-05-02 11:59] LABS: Abs Immature Grans 0.02 10^3/uL (0.0-0.06); Absolute Basophil Count 0.04 10^3/uL (0.0-0.2); Absolute Eosinophil Count 0.19 10^3/uL (0.0-0.7); Absolute Lymphocyte Count 0.58 10^3/uL (1.2-3.4); Absolute Monocyte Count 0.57 10^3/uL (0.1-0.8); Absolute Neutrophil Count 3.34 10^3/uL (1.2-6.7); Basophils % 0.8 %; HCT 34.2 % (40.0-50.0); Immature Grans % 0.4 %; Lymphocytes % 12.2 %; MCH 31.4 pg (27.0-33.0); MCHC 32.2 % (32.0-36.0); MCV 98 fL (80-95); MPV 9.4 fL (8.0-11.0); Neutrophils % 70.6 %; Platelet Count 154 10^3/uL (130-400); RDW 16.6 % (11.8-14.1); RDW-SD 59.2 fL; WBC 4.74 10^3/uL (4.4-10.8)
[2024-05-02 12:18] LABS: ALT 63 U/L (16-63); AST 47 U/L (15-37); Albumin 3.5 g/dL (3.4-5.0); Alkaline Phosphatase 220 U/L (46-116); Anion Gap 8.9 mmol/L (3-11); BUN 12 mg/dL (7-18); Bilirubin, Total 0.66 mg/dL (0.2-1.0); CO2 28.1 mmol/L (21.0-32.0); CREATININE 1.1 mg/dL (0.70-1.30); Calcium 8.9 mg/dL (8.5-10.1); Chloride 107 mmol/L (98-107); Estimated GFR 70.01 (mL/min/1.73m2); Glucose 88 mg/dL (74-106); Potassium 4.2 mmol/L (3.5-5.1); Sodium 144 mmol/L (136-145); Total Protein 7.3 g/dL (6.4-8.2)
[2024-05-05 12:46] LABS: CA 19-9 21 U/mL (<35)
[2024-05-07 12:27] LABS: Alkaline Phosphatase 215 U/L (40 - 129); Bone % 24.3 % (19.1-67.7); Intestine 1.5 IU/L (0.0-11.0); Intestine % 0.7 % (0.0-20.6); Liver % 69.3 % (27.8-76.3); Liver 2% 5.7 % (0.0-8.0)
== END 2024-05-02 13:51 | disposition home or self-care (01) ==
LOC: LBO 13:52
PROVIDERS: PCP Family Medicine; Visit Provider Internal Medicine Hematology & Oncology
DX: C22.1 Intrahepatic bile duct carcinoma (principal)
CPT/HCPCS: 36415; 80053; 84075; 84080; 85025; 86301

== ENCOUNTER 2024-05-08 02:57 | Outpatient (CLI) | payer MEDICARE, SELFPAY ==
[2024-05-08 10:41] LABS: Abs Immature Grans 0.02 10^3/uL (0.0-0.06); Absolute Basophil Count 0.03 10^3/uL (0.0-0.2); Absolute Eosinophil Count 0.36 10^3/uL (0.0-0.7); Absolute Monocyte Count 0.39 10^3/uL (0.1-0.8); Basophils % 0.8 %; Eosinophils % 9.7 %; HCT 34.2 % (40.0-50.0); HGB 10.8 g/dL (13.5-17.5); Immature Grans % 0.5 %; Lymphocytes % 10.8 %; MCH 30.6 pg (27.0-33.0); MCHC 31.6 % (32.0-36.0); MCV 97 fL (80-95); MPV 10.2 fL (8.0-11.0); Monocytes % 10.5 %; Neutrophils % 67.7 %; Platelet Count 181 10^3/uL (130-400); RBC 3.53 10^6/uL (4.36-5.78); RDW 16.4 % (11.8-14.1); RDW-SD 58.9 fL
[2024-05-08 11:15] LABS: ALT 58 U/L (16-63); AST 49 U/L (15-37); Albumin 3.6 g/dL (3.4-5.0); Alkaline Phosphatase 181 U/L (46-116); Anion Gap 10.2 mmol/L (3-11); BUN 15 mg/dL (7-18); Bilirubin, Total 0.72 mg/dL (0.2-1.0); CO2 28.8 mmol/L (21.0-32.0); CREATININE 0.9 mg/dL (0.70-1.30); Chloride 107 mmol/L (98-107); Estimated GFR 89.07 (mL/min/1.73m2); Glucose 93 mg/dL (74-106); Potassium 4.3 mmol/L (3.5-5.1); Sodium 146 mmol/L (136-145); Total Protein 7.5 g/dL (6.4-8.2)
== END 2024-05-08 02:58 | disposition home or self-care (01) ==
LOC: LBO 02:57
PROVIDERS: PCP Family Medicine; Visit Provider Internal Medicine Hematology & Oncology
DX: C22.1 Intrahepatic bile duct carcinoma (principal)
CPT/HCPCS: 36415; 80053; 85025

== ENCOUNTER 2024-05-13 02:03 | Outpatient (CLI) | payer MEDICARE, SELFPAY ==
[2024-05-13 17:23] LABS: Abs Immature Grans 0.01 10^3/uL (0.0-0.06); Absolute Basophil Count 0.03 10^3/uL (0.0-0.2); Absolute Eosinophil Count 0.31 10^3/uL (0.0-0.7); Absolute Lymphocyte Count 0.25 10^3/uL (1.2-3.4); Absolute Monocyte Count 0.45 10^3/uL (0.1-0.8); Basophils % 0.9 %; Eosinophils % 9.3 %; HCT 31.2 % (40.0-50.0); HGB 10.1 g/dL (13.5-17.5); Immature Grans % 0.3 %; Lymphocytes % 7.5 %; MCH 31.4 pg (27.0-33.0); MCHC 32.4 % (32.0-36.0); MCV 97 fL (80-95); MPV 10.1 fL (8.0-11.0); Monocytes % 13.4 %; Neutrophils % 68.6 %; Platelet Count 171 10^3/uL (130-400); RBC 3.22 10^6/uL (4.36-5.78); RDW 16.9 % (11.8-14.1); RDW-SD 58.8 fL; WBC 3.35 10^3/uL (4.4-10.8)
[2024-05-13 17:43] LABS: ALT 41 U/L (16-63); AST 33 U/L (15-37); Albumin 3.2 g/dL (3.4-5.0); Alkaline Phosphatase 147 U/L (46-116); Anion Gap 7.5 mmol/L (3-11); BUN 18 mg/dL (7-18); Bilirubin, Total 0.57 mg/dL (0.2-1.0); CO2 27.5 mmol/L (21.0-32.0); CREATININE 0.9 mg/dL (0.70-1.30); Calcium 8.5 mg/dL (8.5-10.1); Chloride 109 mmol/L (98-107); Estimated GFR 89.07 (mL/min/1.73m2); Glucose 92 mg/dL (74-106); Potassium 3.8 mmol/L (3.5-5.1); Sodium 144 mmol/L (136-145); Total Protein 6.8 g/dL (6.4-8.2)
== END 2024-05-13 02:04 | disposition home or self-care (01) ==
LOC: LBO 02:03
PROVIDERS: PCP Family Medicine; Visit Provider Internal Medicine Hematology & Oncology
DX: C22.1 Intrahepatic bile duct carcinoma (principal)
CPT/HCPCS: 36415; 80053; 85025; 86301

== ENCOUNTER 2024-05-22 02:57 | Outpatient (CLI) | payer MEDICARE, SELFPAY ==
[2024-05-22 09:59] LABS: Abs Immature Grans 0.01 10^3/uL (0.0-0.06); Absolute Basophil Count 0.03 10^3/uL (0.0-0.2); Absolute Eosinophil Count 0.84 10^3/uL (0.0-0.7); Absolute Lymphocyte Count 0.24 10^3/uL (1.2-3.4); Absolute Monocyte Count 0.47 10^3/uL (0.1-0.8); Absolute Neutrophil Count 2.28 10^3/uL (1.2-6.7); Basophils % 0.8 %; Eosinophils % 21.7 %; HCT 31.7 % (40.0-50.0); HGB 10.4 g/dL (13.5-17.5); Immature Grans % 0.3 %; Lymphocytes % 6.2 %; MCHC 32.8 % (32.0-36.0); MCV 98 fL (80-95); MPV 9.2 fL (8.0-11.0); Monocytes % 12.1 %; Neutrophils % 58.9 %; Platelet Count 132 10^3/uL (130-400); RBC 3.25 10^6/uL (4.36-5.78); RDW 18.6 % (11.8-14.1); RDW-SD 63.6 fL; WBC 3.87 10^3/uL (4.4-10.8)
[2024-05-22 10:18] LABS: ALT 65 U/L (16-63); AST 66 U/L (15-37); Albumin 3.4 g/dL (3.4-5.0); Alkaline Phosphatase 153 U/L (46-116); BUN 12 mg/dL (7-18); Bilirubin, Total 0.69 mg/dL (0.2-1.0); CREATININE 0.9 mg/dL (0.70-1.30); Calcium 8.5 mg/dL (8.5-10.1); Chloride 107 mmol/L (98-107); Estimated GFR 89.07 (mL/min/1.73m2); Glucose 92 mg/dL (74-106); Potassium 3.7 mmol/L (3.5-5.1); Sodium 145 mmol/L (136-145); Total Protein 6.8 g/dL (6.4-8.2)
== END 2024-05-22 02:58 | disposition home or self-care (01) ==
LOC: LBO 02:57
PROVIDERS: PCP Family Medicine; Visit Provider Internal Medicine Hematology & Oncology
DX: C22.1 Intrahepatic bile duct carcinoma (principal)
CPT/HCPCS: 36415; 80053; 85025

== ENCOUNTER 2024-05-28 03:23 | Outpatient (CLI) | payer MEDICARE, SELFPAY ==
[2024-05-28 10:23] LABS: Abs Immature Grans 0.01 10^3/uL (0.0-0.06); Absolute Basophil Count 0.04 10^3/uL (0.0-0.2); Absolute Eosinophil Count 0.95 10^3/uL (0.0-0.7); Absolute Lymphocyte Count 0.21 10^3/uL (1.2-3.4); Absolute Monocyte Count 0.41 10^3/uL (0.1-0.8); Absolute Neutrophil Count 2.12 10^3/uL (1.2-6.7); Basophils % 1.1 %; Eosinophils % 25.4 %; HGB 10.9 g/dL (13.5-17.5); Immature Grans % 0.3 %; Lymphocytes % 5.6 %; MCH 32.1 pg (27.0-33.0); MCV 97 fL (80-95); MPV 10.1 fL (8.0-11.0); Neutrophils % 56.6 %; Platelet Count 138 10^3/uL (130-400); RDW 19.9 % (11.8-14.1); RDW-SD 70.9 fL; WBC 3.74 10^3/uL (4.4-10.8)
[2024-05-28 10:58] LABS: ALT 67 U/L (16-63); AST 93 U/L (15-37); Albumin 3.3 g/dL (3.4-5.0); Alkaline Phosphatase 158 U/L (46-116); Anion Gap 7.4 mmol/L (3-11); BUN 9 mg/dL (7-18); Bilirubin, Total 0.69 mg/dL (0.2-1.0); CO2 28.6 mmol/L (21.0-32.0); CREATININE 0.9 mg/dL (0.70-1.30); Calcium 8.7 mg/dL (8.5-10.1); Chloride 109 mmol/L (98-107); Estimated GFR 89.07 (mL/min/1.73m2); Glucose 97 mg/dL (74-106); Potassium 3.6 mmol/L (3.5-5.1); Sodium 145 mmol/L (136-145); Total Protein 6.8 g/dL (6.4-8.2)
[2024-05-28 20:00] LABS: CA 19-9 14 U/mL (<35)
== END 2024-05-28 03:24 | disposition home or self-care (01) ==
LOC: LBO 03:23
PROVIDERS: PCP Family Medicine; Visit Provider Internal Medicine Hematology & Oncology
DX: C22.1 Intrahepatic bile duct carcinoma (principal)
CPT/HCPCS: 36415; 80053; 85025; 86301

== ENCOUNTER 2024-06-04 02:16 | Outpatient (CLI) | payer MEDICARE, SELFPAY ==
[2024-06-04 15:59] LABS: Absolute Basophil Count 0.02 10^3/uL (0.0-0.2); Absolute Eosinophil Count 0.33 10^3/uL (0.0-0.7); Absolute Lymphocyte Count 0.14 10^3/uL (1.2-3.4); Absolute Monocyte Count 0.55 10^3/uL (0.1-0.8); Absolute Neutrophil Count 1.88 10^3/uL (1.2-6.7); Basophils % 0.7 %; Eosinophils % 11.3 %; HCT 31.1 % (40.0-50.0); HGB 10.2 g/dL (13.5-17.5); Lymphocytes % 4.8 %; MCH 31.8 pg (27.0-33.0); MCHC 32.8 % (32.0-36.0); MCV 97 fL (80-95); MPV 9.8 fL (8.0-11.0); Monocytes % 18.8 %; Neutrophils % 64.4 %; Platelet Count 122 10^3/uL (130-400); RBC 3.21 10^6/uL (4.36-5.78); RDW 21.7 % (11.8-14.1); RDW-SD 77.7 fL; WBC 2.92 10^3/uL (4.4-10.8)
[2024-06-04 16:55] LABS: ALT 48 U/L (16-63); AST 36 U/L (15-37); Albumin 3.5 g/dL (3.4-5.0); Alkaline Phosphatase 164 U/L (46-116); Anion Gap 8.6 mmol/L (3-11); BUN 12 mg/dL (7-18); CO2 29.4 mmol/L (21.0-32.0); CREATININE 0.8 mg/dL (0.70-1.30); Calcium 8.6 mg/dL (8.5-10.1); Chloride 107 mmol/L (98-107); Estimated GFR 92.29 (mL/min/1.73m2); Glucose 88 mg/dL (74-106); Potassium 3.6 mmol/L (3.5-5.1); Sodium 145 mmol/L (136-145); Total Protein 6.5 g/dL (6.4-8.2)
[2024-06-04 17:45] LABS: Anisocytosis 2+
[2024-06-04 17:48] LABS: Diff Comment Diff Reviewed
== END 2024-06-04 02:17 | disposition home or self-care (01) ==
LOC: LBO 02:16
PROVIDERS: PCP Family Medicine; Visit Provider Internal Medicine Hematology & Oncology
DX: C22.1 Intrahepatic bile duct carcinoma (principal)
CPT/HCPCS: 36415; 80053; 85025

== ENCOUNTER 2024-06-17 00:48 | Outpatient (CLI) | payer MEDICARE, SELFPAY ==
[2024-06-17] MEDS: Barium Sulfate 2% W/V-Creamy Vanilla Smoothie 450 ML BTL PO ×2 (07:56→07:57)
[2024-06-17 08:15] LABS: Abs Immature Grans 0.01 10^3/uL (0.0-0.06); Absolute Basophil Count 0.04 10^3/uL (0.0-0.2); Absolute Eosinophil Count 0.19 10^3/uL (0.0-0.7); Absolute Lymphocyte Count 0.19 10^3/uL (1.2-3.4); Absolute Monocyte Count 0.54 10^3/uL (0.1-0.8); Absolute Neutrophil Count 1.92 10^3/uL (1.2-6.7); Basophils % 1.4 %; Eosinophils % 6.6 %; HCT 34.1 % (40.0-50.0); HGB 11.2 g/dL (13.5-17.5); Immature Grans % 0.3 %; Lymphocytes % 6.6 %; MCH 32.7 pg (27.0-33.0); MCHC 32.8 % (32.0-36.0); MCV 99 fL (80-95); MPV 10.3 fL (8.0-11.0); Monocytes % 18.7 %; Neutrophils % 66.4 %; Platelet Count 136 10^3/uL (130-400); RBC 3.43 10^6/uL (4.36-5.78); RDW 22.9 % (11.8-14.1); WBC 2.89 10^3/uL (4.4-10.8)
[2024-06-17 08:36] LABS: ALT 71 U/L (16-63); AST 75 U/L (15-37); Albumin 3.5 g/dL (3.4-5.0); Alkaline Phosphatase 208 U/L (46-116); Anion Gap 9.1 mmol/L (3-11); BUN 13 mg/dL (7-18); Bilirubin, Total 0.67 mg/dL (0.2-1.0); CO2 27.9 mmol/L (21.0-32.0); CREATININE 0.9 mg/dL (0.70-1.30); Calcium 8.3 mg/dL (8.5-10.1); Chloride 109 mmol/L (98-107); Estimated GFR 89.07 (mL/min/1.73m2); Glucose 78 mg/dL (74-106); Potassium 3.8 mmol/L (3.5-5.1); Sodium 146 mmol/L (136-145); Total Protein 7.3 g/dL (6.4-8.2)
[2024-06-17 08:47] LABS: Anisocytosis 2+; Diff Comment RBC Morph Reviewed
[2024-06-17] MEDS: Omnipaque 350 MG/ML 100 ML BTL IJ (10:13)
[2024-06-17] MEDS: Normal Saline - Diluent 50 ML VIAL IJ (10:14)
--- NOTE | 2024-06-17 10:14 | DI.CT_ITS ---
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 Lung Computer Aided Detection (CAD) was utilized. CONTRAST MATERIAL: Intravenous: Omnipaque 350 contrast volume:100 mL Oral: Yes COMPARISON: CT CT CHEST/ABD/PEL W from 04/07/2024 FINDINGS: CHEST: Tracheobronchial tree: Patent where visualized. No evidence of bronchiectasis. Pulmonary parenchyma: No consolidation or dominant measurable mass. There is again seen scarring and/ or atelectasis in the right middle lobe. There is unchanged elevation of the right hemidiaphragm. N o pulmonary nodules are present. Visualized thyroid gland: Unremarkable. Mediastinum and Michelle: No dominant adenopathy or fluid collection. The esophagus is unremarkable. Pleura: No effusion or pneumothorax. Heart: The heart is not dilated. Coronary artery calcification is present. No pericardial effusion. Pulmonary arteries: No pulmonary emboli are identified. Aorta: Thoracic aorta non-dilated. No evidence of dissection. Atherosclerotic calcification is prese nt. Lymph nodes: Within normal limits. Soft tissues: Unremarkable. Bones:Within normal limits for the patient's age. No aggressive osseous lesions are present. ABDOMEN: Liver: Normal density. No measurable mass. There is a hepatic artery stent in place. Portal, Superior Mesenteric, and Splenic Veins: Unremarkable. Gallbladder and Biliary Tract: Status post cholecystectomy. No biliary ductal dilatation. No eviden ce of recurrent or residual mass in the region of the gallbladder fossa. Pancreas: Status post Whipple's procedure. Normal density, no abnormal calcifications or inflammator y process. Spleen: Normal. Adrenals: No masses seen. Kidneys: Normal size, contour and axis. Nonobstructing 2 mm stone in the midpole of the left kidney. No masses seen. Abdominal Aorta: Abdominal portion non-dilated. Atherosclerotic calcification is present. Bowel: No obstruction or bowel wall thickening. No evidence of appendicitis. Peritoneal Cavity: No ascites, collection or mesenteric inflammatory response. No free air. Lymph Nodes: Within normal limits. Bones: Within normal limits for the patient's age. No aggressive osseous lesions. Soft Tissues: Unremarkable. PELVIS: Bladder: The urinary bladder is incompletely distended limiting evaluation. No gross abnormalities i dentified. Reproductive Organs: There is proximal migration of the right testicle which appears to lie in a port ion of the distal right inguinal canal. Lymph Nodes: Within normal limits. Bones: Within normal limits. IMPRESSION: 1. No evidence of thoracic metastatic disease. 2. No evidence of abdominal or pelvic metastatic disease. 3. Postsurgical changes seen in the abdomen as described. RADIATION DOSE DELIVERED: 440.65mGy.cm Total DLP DATA REPOSITORY: All CT scans at this facility are submitted to the National Radiology Data Registry (NRDR) Dose Index Registry (DIR) with the [employer] (ACR). RADIATION OPTIMIZATION: All CT scans at this facility use at least one of these dose optimization te chniques: automated exposure control; mA and/or kV adjustment per patient size (includes targeted exa ms where dose is matched to clinical indication); or iterative reconstruction.
[2024-06-18 12:19] LABS: CA 19-9 17 U/mL (<35)
== END 2024-06-17 01:08 ==
LOC: DI 00:49
PROVIDERS: PCP Family Medicine; Visit Provider Internal Medicine Hematology & Oncology
DX: C22.1 Intrahepatic bile duct carcinoma (principal)
CPT/HCPCS: 74177; 80053; 71260; 85025; 86301; J3490

== ENCOUNTER 2024-07-03 08:42 | Outpatient (CLI) | payer MEDICARE, SELFPAY ==
[2024-07-03 08:51] LABS: Absolute Basophil Count 0.03 10^3/uL (0.0-0.2); Absolute Eosinophil Count 0.13 10^3/uL (0.0-0.7); Absolute Lymphocyte Count 0.25 10^3/uL (1.2-3.4); Absolute Monocyte Count 0.38 10^3/uL (0.1-0.8); Absolute Neutrophil Count 1.81 10^3/uL (1.2-6.7); Basophils % 1.2 %; HCT 33.5 % (40.0-50.0); HGB 11.1 g/dL (13.5-17.5); Lymphocytes % 9.6 %; MCH 32.4 pg (27.0-33.0); MCHC 33.1 % (32.0-36.0); MCV 98 fL (80-95); MPV 9.1 fL (8.0-11.0); Monocytes % 14.6 %; Neutrophils % 69.6 %; Platelet Count 145 10^3/uL (130-400); RBC 3.43 10^6/uL (4.36-5.78); RDW 22.2 % (11.8-14.1); RDW-SD 78.3 fL
[2024-07-03 08:59] LABS: Anisocytosis 1+
[2024-07-03 09:11] LABS: ALT 71 U/L (16-63); AST 76 U/L (15-37); Albumin 3.4 g/dL (3.4-5.0); Alkaline Phosphatase 211 U/L (46-116); Anion Gap 6.7 mmol/L (3-11); BUN 13 mg/dL (7-18); Bilirubin, Total 0.65 mg/dL (0.2-1.0); CO2 30.3 mmol/L (21.0-32.0); Calcium 8.8 mg/dL (8.5-10.1); Chloride 108 mmol/L (98-107); Estimated GFR 78.49 (mL/min/1.73m2); Glucose 90 mg/dL (74-106); Potassium 4.1 mmol/L (3.5-5.1); Sodium 145 mmol/L (136-145)
[2024-07-04 09:48] LABS: CA 19-9 15 U/mL (<35)
== END 2024-07-03 08:43 | disposition home or self-care (01) ==
LOC: LBO 08:44
PROVIDERS: PCP Family Medicine; Visit Provider Internal Medicine Hematology & Oncology
DX: C22.1 Intrahepatic bile duct carcinoma (principal)
CPT/HCPCS: 80053; 85025; 86301

== ENCOUNTER 2024-08-05 03:25 | Outpatient (CLI) | payer MEDICARE, SELFPAY ==
[2024-08-05 12:52] LABS: Abs Immature Grans 0.01 10^3/uL (0.0-0.06); Absolute Basophil Count 0.04 10^3/uL (0.0-0.2); Absolute Eosinophil Count 0.12 10^3/uL (0.0-0.7); Absolute Lymphocyte Count 0.39 10^3/uL (1.2-3.4); Absolute Monocyte Count 0.54 10^3/uL (0.1-0.8); Absolute Neutrophil Count 3.44 10^3/uL (1.2-6.7); Basophils % 0.9 %; Eosinophils % 2.6 %; HGB 11.7 g/dL (13.5-17.5); Immature Grans % 0.2 %; Lymphocytes % 8.6 %; MCH 34.6 pg (27.0-33.0); MCHC 33.4 % (32.0-36.0); MCV 104 fL (80-95); MPV 9.1 fL (8.0-11.0); Monocytes % 11.9 %; Neutrophils % 75.8 %; Platelet Count 167 10^3/uL (130-400); RBC 3.38 10^6/uL (4.36-5.78); RDW 17.1 % (11.8-14.1); RDW-SD 65.7 fL; WBC 4.54 10^3/uL (4.4-10.8)
[2024-08-05 13:07] LABS: ALT 65 U/L (16-63); AST 73 U/L (15-37); Albumin 3.3 g/dL (3.4-5.0); Alkaline Phosphatase 198 U/L (46-116); Anion Gap 5.7 mmol/L (3-11); BUN 14 mg/dL (7-18); Bilirubin, Total 0.54 mg/dL (0.2-1.0); CO2 31.3 mmol/L (21.0-32.0); Calcium 8.2 mg/dL (8.5-10.1); Chloride 109 mmol/L (98-107); Estimated GFR 78.49 (mL/min/1.73m2); Glucose 90 mg/dL (74-106); Sodium 146 mmol/L (136-145); Total Protein 7.4 g/dL (6.4-8.2)
[2024-08-06 09:28] LABS: CA 19-9 28 U/mL (<35)
== END 2024-08-05 03:26 | disposition home or self-care (01) ==
LOC: LBO 03:25
PROVIDERS: PCP Family Medicine; Visit Provider Internal Medicine Hematology & Oncology
DX: C22.1 Intrahepatic bile duct carcinoma (principal)
CPT/HCPCS: 36415; 80053; 85025; 86301

== ENCOUNTER 2024-09-11 13:56 | Outpatient (CLI) | payer MEDICARE, SELFPAY ==
[2024-09-11 14:39] LABS: Abs Immature Grans 0.01 10^3/uL (0.0-0.06); Absolute Basophil Count 0.04 10^3/uL (0.0-0.2); Absolute Eosinophil Count 0.09 10^3/uL (0.0-0.7); Absolute Lymphocyte Count 0.36 10^3/uL (1.2-3.4); Absolute Monocyte Count 0.51 10^3/uL (0.1-0.8); Absolute Neutrophil Count 3.73 10^3/uL (1.2-6.7); Basophils % 0.8 %; Eosinophils % 1.9 %; HCT 34.3 % (40.0-50.0); HGB 11.4 g/dL (13.5-17.5); Immature Grans % 0.2 %; Lymphocytes % 7.6 %; MCH 34.3 pg (27.0-33.0); MCHC 33.2 % (32.0-36.0); MCV 103 fL (80-95); MPV 9.9 fL (8.0-11.0); Monocytes % 10.8 %; Neutrophils % 78.7 %; Platelet Count 182 10^3/uL (130-400); RBC 3.32 10^6/uL (4.36-5.78); RDW-SD 53.1 fL; WBC 4.74 10^3/uL (4.4-10.8)
[2024-09-11 16:00] LABS: ALT 81 U/L (16-63); AST 103 U/L (15-37); Albumin 3.4 g/dL (3.4-5.0); Alkaline Phosphatase 194 U/L (46-116); Anion Gap 9.3 mmol/L (3-11); BUN 17 mg/dL (7-18); Bilirubin, Total 0.49 mg/dL (0.2-1.0); CO2 27.7 mmol/L (21.0-32.0); CREATININE 1.1 mg/dL (0.70-1.30); Calcium 8.8 mg/dL (8.5-10.1); Chloride 109 mmol/L (98-107); Estimated GFR 70.01 (mL/min/1.73m2); Glucose 125 mg/dL (74-106); Potassium 4.4 mmol/L (3.5-5.1); Sodium 146 mmol/L (136-145); Total Protein 7.1 g/dL (6.4-8.2); Vitamin B12 669 pg/mL (193-986)
[2024-09-13 14:25] LABS: Zinc, S 64 mcg/dL (60-106)
== END 2024-09-11 13:57 | disposition home or self-care (01) ==
LOC: LBO 13:59
PROVIDERS: PCP Family Medicine; Visit Provider Family Medicine
DX: Z90.410 Acquired total absence of pancreas (principal)
CPT/HCPCS: 36415; 80053; 84630; 82607; 85025

== ENCOUNTER 2024-10-08 11:52 | Outpatient (CLI) | payer MEDICARE, SELFPAY ==
[2024-10-08 12:15] LABS: Abs Immature Grans 0.01 10^3/uL (0.0-0.06); Absolute Basophil Count 0.03 10^3/uL (0.0-0.2); Absolute Lymphocyte Count 0.42 10^3/uL (1.2-3.4); Absolute Monocyte Count 0.47 10^3/uL (0.1-0.8); Absolute Neutrophil Count 2.55 10^3/uL (1.2-6.7); Basophils % 0.8 %; Eosinophils % 2.8 %; HGB 11.8 g/dL (13.5-17.5); Immature Grans % 0.3 %; Lymphocytes % 11.7 %; MCH 33.3 pg (27.0-33.0); MCHC 32.8 % (32.0-36.0); MCV 102 fL (80-95); MPV 9.5 fL (8.0-11.0); Monocytes % 13.1 %; Neutrophils % 71.3 %; Platelet Count 162 10^3/uL (130-400); RBC 3.54 10^6/uL (4.36-5.78); RDW 13.8 % (11.8-14.1); RDW-SD 52.2 fL; WBC 3.58 10^3/uL (4.4-10.8)
[2024-10-08 12:38] LABS: ALT 58 U/L (16-63); AST 56 U/L (15-37); Albumin 3.3 g/dL (3.4-5.0); Alkaline Phosphatase 195 U/L (46-116); Anion Gap 6.9 mmol/L (3-11); BUN 18 mg/dL (7-18); Bilirubin, Total 0.5 mg/dL (0.2-1.0); CO2 30.1 mmol/L (21.0-32.0); Calcium 8.8 mg/dL (8.5-10.1); Chloride 105 mmol/L (98-107); Estimated GFR 78.49 (mL/min/1.73m2); Glucose 90 mg/dL (74-106); Potassium 4.5 mmol/L (3.5-5.1); Sodium 142 mmol/L (136-145); Total Protein 6.9 g/dL (6.4-8.2)
[2024-10-10 09:41] LABS: CA 19-9 25 U/mL (<35)
== END 2024-10-08 11:53 | disposition home or self-care (01) ==
LOC: LBO 11:52
PROVIDERS: PCP Family Medicine; Visit Provider Internal Medicine Hematology & Oncology
DX: C22.1 Intrahepatic bile duct carcinoma (principal)
CPT/HCPCS: 36415; 80053; 85025; 86301

== ENCOUNTER 2024-10-25 23:44 | Emergency (ER) | payer MEDICARE, SELFPAY ==
[2024-10-25 23:46] VITALS: BP 184/108; PULSE 129; RESP 19; TEMP 36.3; O2SAT 100
--- NOTE | 2024-10-25 23:46 | ED.GENADUL_ITS ---
Discharge Plan Disposition Patient Disposition: Home Condition: Good Discharge Details Clinical Impression: Acute urinary retention, UTI (urinary tract infection) Primary Care Provider: Fernando Koehler ED Provider: Jacek Bar Meds and New Rx's Prescriptions: New cefpodoxime 200 mg tablet 200 mg PO BID Qty: 14 0RF Rx Instructions: must administer with a meal/food; begin taking evening of 4/6 tamsulosin 0.4 mg capsule 0.4 mg PO QHS Qty: 14 0RF Continued lisinopril 20 mg tablet 20 mg PO HS triamcinolone acetonide 0.1 % cream 1 applic topical BID PRN atorvastatin 20 mg tablet 20 mg PO HS multivitamin [Daily Multi-Vitamin] 1 EACH tablet 1 tab PO DAILY aspirin [Aspir-81] 81 MG tablet,delayed release (DR/EC) 81 mg PO DAILY naproxen sodium [Aleve] 220 MG tablet 220 mg PO DAILY PRN cholecalciferol (vitamin D3) [Vitamin D3] 1,000 UNIT capsule 1 cap PO DAILY bupropion HCl 300 mg tablet extended release 24 hr 300 mg PO DAILY Patient Comments: TAKE ONE TABLET BY MOUTH EVERY DAY [id number]-[id number] 25,000-85,000- 136,000 unit capsule,delayed release(DR/EC) 2 cap PO TID Patient Comments: 2 caps w/ regular meal and 1 cap w/ snacks acetaminophen 325 mg capsule See Rx Instructions PO .COMPLEX PRN Rx Instructions: 975mg orally Q8h PRN; clopidogrel 75 mg tablet 75 mg PO DAILY Patient Comments: TAKE ONE TABLET BY MOUTH EVERY DAY olanzapine 2.5 mg tablet 2.5 mg PO QHS Patient Comments: TAKE ONE TABLET BY MOUTH AT BEDTIME omeprazole 40 mg capsule,delayed release(DR/EC) 40 mg PO DAILY Patient Comments: TAKE ONE CAPSULE BY MOUTH EVERY DAY Held oxybutynin chloride 10 mg tablet extended release 24hr 10 mg PO DAILY Hold Instructions: until seen by urology Discharge Instructions Instructions: How to Care for Your Vallecillo Catheter Additional Instructions: You were seen in the ED for urinary retention. A Vallecillo catheter was placed and will need to remain in place for short-term. You were found to have a urinary tract infection and have been started on antibiotic. Hold your oxybutynin for now. Begin tamsulosin. Call the urology clinic Sunday morning for follow-up. Return to ED with any catheter issues, fever, back pain, other concerns. Referrals: [facility] [Provider Group] HPI General Mode of arrival: ambulatory . Date/Time Provider Initiated Documentation: 10/25/24 23:45 . Limitations to Documentation: no limitations . Information obtained by: patient and RN notes reviewed . HPI Narrative: Patient presents to ED with inability to urinate. Patient reports he has not been able to urinate at all since about 9 PM this evening. However, he reports abnormal urination for the last 3 days. He is very uncomfortable at this time. He denies fever, chills, back pain. He is not had problems like this for quite some time. He does have a history of prostate cancer and has had episodes of gross hematuria and clot retention in the past. Denies any bloody urine at this time. Related Data Home Medications ?Medication ?Instructions ?Recorded ?Confirmed aspirin 81 mg tablet,delayed 81 mg PO DAILY 03/09/14 10/25/24 release (Aspir-) multivitamin (Daily Multi-Vitamin 1 tab PO DAILY 03/09/14 10/25/24 tablet) naproxen sodium 220 mg tablet 220 mg PO DAILY PRN 03/09/14 10/25/24 (Aleve) cholecalciferol (vitamin D3) 25 1 cap PO DAILY 06/25/15 10/25/24 mcg (1,000 unit) capsule (Vitamin D3) atorvastatin 20 mg tablet 20 mg PO HS 02/09/22 10/25/24 oxybutynin chloride 10 mg 10 mg PO DAILY 02/09/22 10/25/24 tablet,extended release 24 hr triamcinolone acetonide 0.1 % 1 applic topical BID PRN 02/09/22 10/25/24 topical cream lisinopril 20 mg tablet 20 mg PO HS 02/27/22 10/25/24 bupropion HCl 300 mg 24 hr tablet, 300 mg PO DAILY 08/28/23 10/25/24 extended release [id number]-[id number]-[id number] 2 cap PO TID 08/28/23 10/25/24 25,000-85,000-136,000 unit capsule,delayed rel acetaminophen 325 mg capsule See Rx Instructions PO .COMPLEX PRN 09/04/23 10/25/24 clopidogrel 75 mg tablet 75 mg PO DAILY 10/25/24 10/25/24 olanzapine 2.5 mg tablet 2.5 mg PO QHS 10/25/24 10/25/24 omeprazole 40 mg capsule,delayed 40 mg PO DAILY 10/25/24 10/25/24 release cefpodoxime 200 mg tablet 200 mg PO BID #14 tabs 10/26/24 tamsulosin 0.4 mg capsule 0.4 mg PO QHS #14 caps 10/26/24 Previous Rx's ?Medication ?Instructions ?Recorded cefpodoxime 200 mg tablet 200 mg PO BID #14 tabs 10/26/24 tamsulosin 0.4 mg capsule 0.4 mg PO QHS #14 caps 10/26/24 Allergies Allergy/AdvReac Type Severity Reaction Status Date / Time [email or web address] (From [email or web address]) AdvReac elevated Verified 10/25/24 23:51 blood pressure General SAIMA: 3 Exam Narrative Exam Narrative: Const: WDWN eldelry male in NAD. VS per triage. HEENT: NC/AT. Normal facial exam. Neck: Supple. Trachea midline. Lungs: Normal respiratory effort. GI: Markedly distended bladder felt, tender over the bladder. Neuro: A+O x 3. Normal speech, mentation, gait. Cranial nerves II - XII grossly intact. No gross motor or sensory deficit. Medical Decision Making Elderly male with history of prostate cancer presenting with urinary retention with last normal void being almost 3 days ago. Unable to void since this evening. Bladder is distended on exam. Vallecillo catheter ordered. Will place a line to check BUN and creatinine given 3-day history of abnormal voiding. Check urinalysis for infection. Nursing with some difficulty placing catheter but was able to do so. 650 of urine out. Kidney function is normal. Urinalysis suggest infection so he has been given 1 g ceftriaxone. He is also given 0.4 mg tamsulosin. His repeat vital signs are much better. He is afebrile without flank pain and otherwise looks well. Will continue on antibiotics, cefpodoxime 20 mg twice daily for 7 days. Will hold his oxybutynin. Will start him on tamsulosin. Refer to urology clinic for follow-up this coming week. Return precautions provided. Lab Data Lab results reviewed: Yes I reviewed the patient's lab results. Lab results narrative: See [facility] PFSH All Active Problems (Updated 10/26/24 @ 01:59 by Jacek Bar MD) UTI (urinary tract infection) (Acute) Acute urinary retention (Acute) Situational anxiety (Acute) Dysthymia (Acute) Generalized social phobia (Acute) Alcohol abuse (Chronic) Chronic back pain (Acute) Sleep disturbance (Acute) Urinary incontinence (Acute) Rotator cuff syndrome (Acute) Nocturnal leg cramps (Acute) Memory impairment (Acute) Orthostasis (Acute) Urinary hesitancy (Acute) Medical History (Updated 10/26/24 @ 01:59 by Jacek Bar MD) Prostate cancer Treated with radiation therapy Hypertension Obesity (BMI 30-39.9) Hyperlipidemia Erectile dysfunction Surgical History Colonoscopy - IV Sedation Social History Smoking/Tobacco Use Status: Former Tobacco Use Quit Date: 07/23/68 Smoking risk assessment performed?: Yes Alcohol Intake: current Alcohol Intake frequency: 0-2 drinks per day Alcohol type: hard liquor Drug use: Never Substance use type: does not use Housing: house Do you feel safe at home: Yes Do you feel safe in your relationship?: Yes
[2024-10-26 00:10] LABS: Anion Gap 6.6 mmol/L (3-11); BUN 14 mg/dL (7-18); CO2 28.4 mmol/L (21.0-32.0); CREATININE 1.3 mg/dL (0.70-1.30); Chloride 104 mmol/L (98-107); Estimated GFR 57.29 (mL/min/1.73m2); Glucose 102 mg/dL (74-106); Sodium 139 mmol/L (136-145)
[2024-10-26 00:42] LABS: Bilirubin Negative (Negative); Blood Moderate (Negative); Clarity Sl Cloudy (Clear); Glucose Negative (Negative); Ketones Negative (Negative); Leukocyte Esterase Small (Negative); Nitrite Negative (Negative); Urobilinogen 0.2 mg/dL (Up to 0.2)
[2024-10-26 00:46] LABS: Bacteria Few HPF (Negative); C & S Indicated? Yes; Casts Negative LPF (Negative); Crystals Negative HPF (Negative); Epithelial Cells Rare HPF (Negative); Mucus Negative (Negative); WBC >50 HPF (0-5)
[2024-10-26] MEDS: cefTRIAXone 1 GM/50 ML BAG IVPB (01:25)
[2024-10-26] MEDS: Lidocaine 2% Jelly 11 ML SYR UR (01:26)
[2024-10-26 01:35] VITALS: BP 151/80; PULSE 87; RESP 19; O2SAT 99
[2024-10-26] MEDS: Tamsulosin 0.4 MG CAPCR PO (02:07)
[2024-10-26 02:11] VITALS: BP 167/73; PULSE 87; RESP 19; TEMP 36.5; O2SAT 100
--- NOTE | 2024-10-29 13:55 | W.ED.FU ---
Date of service: 10/29/24 Time of Service: 13:55 Follow Up Plan: Positive urine culture received on 10/29/2024 at approximately 9:30 AM, this patient has a thick callus which will require antibiotic change. Given the indwelling catheter I would consider this a complicated urinary tract infection, and so recommended to this patient by phone that he stop his cefpodoxime, and start ciprofloxacin, 500 mg twice daily for the next 7 days. The patient has scheduled follow-up with urology, is reporting feeling improved with no fevers, chills, or ongoing dysuria. The patient had the opportunity to have all of his questions answered and understands return precautions and has the ability to follow-up with outpatient providers. Prescription sent to his preferred pharmacy. Lisa Godwin MD
== END 2024-10-26 02:59 | disposition home or self-care (01) ==
PROVIDERS: Emergency Provider Emergency Medicine; PCP Family Medicine
DX: R33.9 Retention of urine, unspecified (principal); N39.0 Urinary tract infection, site not specified; I10 Essential (primary) hypertension; E78.5 Hyperlipidemia, unspecified; Z79.82 Long term (current) use of aspirin; Z79.02 Long term (current) use of antithrombotics/antiplatelets; Z85.46 Personal history of malignant neoplasm of prostate; Z87.891 Personal history of nicotine dependence
CPT/HCPCS: 80048; 87077; 96365; 99284; 81003; 81015; 87086; 87186; J0696

== ENCOUNTER 2024-11-03 01:31 | Emergency (ER) | payer MEDICARE, SELFPAY ==
[2024-11-03 01:33] VITALS: BP 146/84; PULSE 100; RESP 18; TEMP 36.2; O2SAT 99
[2024-11-03] MEDS: Lidocaine 2% Jelly 11 ML SYR (01:44)
[2024-11-03 01:45] VITALS: BP 109/60; PULSE 90; RESP 18; O2SAT 100
--- NOTE | 2024-11-03 01:58 | ED.GENADUL_ITS ---
Discharge Plan Disposition Patient Disposition: Home Condition: Good Discharge Details Chief Complaint: Urinary Clinical Impression: Complication of Vallecillo catheter Primary Care Provider: Fernando Koehler ED Provider: rEickson Baldwin Home Meds and New Rx's Prescriptions: No Action lisinopril 20 mg tablet 20 mg PO HS triamcinolone acetonide 0.1 % cream 1 applic topical BID PRN oxybutynin chloride 10 mg tablet extended release 24hr 10 mg PO DAILY atorvastatin 20 mg tablet 20 mg PO HS multivitamin [Daily Multi-Vitamin] 1 EACH tablet 1 tab PO DAILY aspirin [Aspir-81] 81 MG tablet,delayed release (DR/EC) 81 mg PO DAILY naproxen sodium [Aleve] 220 MG tablet 220 mg PO DAILY PRN cholecalciferol (vitamin D3) [Vitamin D3] 1,000 UNIT capsule 1 cap PO DAILY bupropion HCl 300 mg tablet extended release 24 hr 300 mg PO DAILY Patient Comments: TAKE ONE TABLET BY MOUTH EVERY DAY [id number] 25,000-85,000- 136,000 unit capsule,delayed release(DR/EC) 2 cap PO TID Patient Comments: 2 caps w/ regular meal and 1 cap w/ snacks acetaminophen 325 mg capsule See Rx Instructions PO .COMPLEX PRN Rx Instructions: 975mg orally Q8h PRN; clopidogrel 75 mg tablet 75 mg PO DAILY Patient Comments: TAKE ONE TABLET BY MOUTH EVERY DAY olanzapine 2.5 mg tablet 2.5 mg PO QHS Patient Comments: TAKE ONE TABLET BY MOUTH AT BEDTIME omeprazole 40 mg capsule,delayed release(DR/EC) 40 mg PO DAILY Patient Comments: TAKE ONE CAPSULE BY MOUTH EVERY DAY cefpodoxime 200 mg tablet 200 mg PO BID Qty: 14 0RF Rx Instructions: must administer with a meal/food; begin taking evening of 4/6 tamsulosin 0.4 mg capsule 0.4 mg PO QHS Qty: 14 0RF ciprofloxacin HCl 500 mg tablet 500 mg PO BID 7 Days Qty: 14 0RF Discharge Instructions Additional Instructions: Please continue to take your antibiotic as prescribed. Please drink plenty of fluids to stay well-hydrated. Please follow-up closely with Dr. Hudson. If you notice any worsening of your symptoms, or any new symptoms such as vomiting, diarrhea, fever, chills, shortness of breath, chest pain, numbness, weakness, or fainting , please return immediately to the emergency department for reevaluation. Please follow up with your primary care provider as soon as possible for reassessment and reevaluation. As always, it was a pleasure participating in your medical care today. Referrals: Harvinder Hudson MD [ [facility] STAFF PHYSICIAN] - [facility] General Date/Time Provider Initiated Documentation: 11/03/24 01:31 . HPI Narrative: This this is a 74-year-old male with an indwelling Vallecillo catheter, who has a renal calcification who was recently switched to Cipro and is currently taking this for treatment of infection, who presents today for evaluation of urinary retention. Patient states that last evening he began having decreased urine output, and then after he changed his bag at around 7 PM he did not have any subsequent urine. Instead he developed a notable pressure-like sensation in the suprapubic region. He denies any recent blood. He denies fever or chills. He has been taking the antibiotic as prescribed. No other complaints at this time. Related Data Home Medications ?Medication ?Instructions ?Recorded ?Confirmed aspirin 81 mg tablet,delayed 81 mg PO DAILY 03/09/14 11/03/24 release (Aspir-) multivitamin (Daily Multi-Vitamin 1 tab PO DAILY 03/09/14 11/03/24 tablet) naproxen sodium 220 mg tablet 220 mg PO DAILY PRN 03/09/14 11/03/24 (Aleve) cholecalciferol (vitamin D3) 25 1 cap PO DAILY 06/25/15 11/03/24 mcg (1,000 unit) capsule (Vitamin D3) atorvastatin 20 mg tablet 20 mg PO HS 02/09/22 11/03/24 oxybutynin chloride 10 mg 10 mg PO DAILY 02/09/22 11/03/24 tablet,extended release 24 hr triamcinolone acetonide 0.1 % 1 applic topical BID PRN 02/09/22 11/03/24 topical cream lisinopril 20 mg tablet 20 mg PO HS 02/27/22 11/03/24 bupropion HCl 300 mg 24 hr tablet, 300 mg PO DAILY 08/28/23 11/03/24 extended release [id number] 2 cap PO TID 08/28/23 11/03/24 25,000-85,000-136,000 unit capsule,delayed rel acetaminophen 325 mg capsule See Rx Instructions PO .COMPLEX PRN 09/04/23 11/03/24 clopidogrel 75 mg tablet 75 mg PO DAILY 10/25/24 11/03/24 olanzapine 2.5 mg tablet 2.5 mg PO QHS 10/25/24 11/03/24 omeprazole 40 mg capsule,delayed 40 mg PO DAILY 10/25/24 11/03/24 release cefpodoxime 200 mg tablet 200 mg PO BID #14 tabs 10/26/24 11/03/24 tamsulosin 0.4 mg capsule 0.4 mg PO QHS #14 caps 10/26/24 11/03/24 ciprofloxacin HCl 500 mg tablet 500 mg PO BID 7 days #14 tabs 10/29/24 11/03/24 Previous Rx's ?Medication ?Instructions ?Recorded cefpodoxime 200 mg tablet 200 mg PO BID #14 tabs 10/26/24 tamsulosin 0.4 mg capsule 0.4 mg PO QHS #14 caps 10/26/24 ciprofloxacin HCl 500 mg tablet 500 mg PO BID 7 days #14 tabs 10/29/24 Allergies Allergy/AdvReac Type Severity Reaction Status Date / Time mirabegron (From Myrbetriq) AdvReac elevated Verified 11/03/24 01:39 blood pressure General Stated Complaint: Urinary SAIMA: 4 Exam Narrative Exam Narrative: 1.Const: Well-nourished, Well-developed, appearing stated age 2.Eyes: PERRL, no conjunctival injection, and symmetrical lids. 3.ENT: Atraumatic external nose and ears. Moist MM. Neck: Symmetric, trachea midline, No thyromegaly. 4.CVS: +S1/S2, Peripheral pulses 2+ and equal in all extremities. Brisk capillary refill in all extremities. 5.RESP: Unlabored respiratory effort. Clear to auscultation bilaterally. No wheezes rales or rhonchi 6.GI: Soft, Nontender/Nondistended, No hepatosplenomegaly. No guarding or rebound. Genital exam demonstrates intact male genitalia, Vallecillo catheter in place, no active bleeding or blood around the urethral meatus. Notable suprapubic pressure with a palpable bladder. 7.MSK: Normocephalic/Atraumatic, Extremities w/o deformity or ttp No cyanosis or clubbing, Normal movement of all extremities 8.Skin: Warm, Dry. No rashes or lesions. 9.Neuro: buzzle buffer II-XII grossly intact. Sensation grossly intact, no focal neurologic deficits. 10.Psych: (AAO) x3. Appropriate mood and affect Course Vital Signs Vital signs: Vital Signs Temperature 36.2 C L 11/03/24 01:33 Pulse 100 H 11/03/24 01:33 Respiratory Rate 18 11/03/24 01:33 Blood Pressure 146/84 H 11/03/24 01:33 Pulse Oximetry 99 11/03/24 01:33 Temperature 36.2 C L 11/03/24 01:33 Temperature Source Tympanic 11/03/24 01:33 Pulse 90 11/03/24 01:45 Respiratory Rate 18 11/03/24 01:45 Blood Pressure 109/60 11/03/24 01:45 Blood Pressure Position Supine 11/03/24 01:33 Pulse Oximetry 100 11/03/24 01:45 Oxygen Delivery Method Room Air 11/03/24 01:45 Oxygen Flow Rate 0 11/03/24 01:45 Pain Level 10 11/03/24 01:42 Medical Decision Making This this is a 74-year-old male with an indwelling Vallecillo catheter, who has a renal calcification who was recently switched to Cipro and is currently taking this for treatment of infection, who presents today for evaluation of urinary retention. Patient states that last evening he began having decreased urine output, and then after he changed his bag at around 7 PM he did not have any subsequent urine. Instead he developed a notable pressure-like sensation in the suprapubic region. He denies any recent blood. He denies fever or chills. He has been taking the antibiotic as prescribed. No other complaints at this time. Exam demonstrates an empty Vallecillo catheter bag, palpable bladder, no severe bleeding at the catheter tip site. Concern for obstruction. Will change out the Vallecillo catheter and the leg bag. Vallecillo catheter was replaced by nursing staff, no complications. Patient had 600 cc of urine out. Suspect mild obstruction secondary to resolving UTI and potential mucus and particulate accumulation. Otherwise patient has no fever, tachycardia or hypotension. Patient feels well, no evidence of systemic infection. Patient will be discharged home discussed red flags which to return. I have extensively reviewed the treatment plan and discharge instructions with the patient. I have addressed all patient concerns at this time. The patient was made aware of what symptoms to monitor for that would warrant a return to the emergency department. Discussed the plan with the patient, they demonstrate verbal understanding and agreement with our assessment and plan at this time. The documentation in this chart was dictated using [employer] dictation software. Please excuse any dictation errors. Quality:SDOH Health Related Social Needs: Health related social needs food insecurity (Z59.41) PFSH All Active Problems (Updated 11/03/24 @ 02:16 by Erickson Baldwin DO) Complication of Vallecillo catheter (Acute) UTI (urinary tract infection) (Acute) Acute urinary retention (Acute) Situational anxiety (Acute) Dysthymia (Acute) Generalized social phobia (Acute) Alcohol abuse (Chronic) Chronic back pain (Acute) Sleep disturbance (Acute) Urinary incontinence (Acute) Rotator cuff syndrome (Acute) Nocturnal leg cramps (Acute) Memory impairment (Acute) Orthostasis (Acute) Urinary hesitancy (Acute) Medical History (Updated 11/03/24 @ 02:16 by Erickson Baldwin DO) Prostate cancer Treated with radiation therapy Hypertension Obesity (BMI 30-39.9) Hyperlipidemia Erectile dysfunction Surgical History Colonoscopy - IV Sedation Social History Smoking/Tobacco Use Status: Former Tobacco Use Quit Date: 07/23/68 Smoking risk assessment performed?: Yes Alcohol Intake: current Alcohol Intake frequency: 0-2 drinks per day Alcohol type: hard liquor Drug use: Never Substance use type: does not use Housing: house Do you feel safe at home: Yes Do you feel safe in your relationship?: Yes
[2024-11-03 02:14] VITALS: BP 121/52; PULSE 85; RESP 16; O2SAT 97
[2024-11-03 02:36] VITALS: BP 127/52; PULSE 81; RESP 16; O2SAT 97
== END 2024-11-03 02:36 | disposition home or self-care (01) ==
LOC: ER 02:28
PROVIDERS: Emergency Provider Student in an Organized Health Care Education/Training Program; PCP Family Medicine
DX: T83.098A Other mechanical complication of other urinary catheter, initial encounter (principal); I10 Essential (primary) hypertension; E78.5 Hyperlipidemia, unspecified; Z79.82 Long term (current) use of aspirin; Z79.02 Long term (current) use of antithrombotics/antiplatelets; Z85.46 Personal history of malignant neoplasm of prostate; Z92.3 Personal history of irradiation
CPT/HCPCS: 36415; 99283; 99284

== ENCOUNTER 2024-11-09 21:46 | Emergency (ER) | payer MEDICARE, SELFPAY ==
[2024-11-09 21:51] VITALS: BP 145/70; PULSE 75; RESP 13; TEMP 36.4; O2SAT 99
[2024-11-09 22:00] VITALS: BP 121/78; PULSE 80; RESP 14; TEMP 36.4; O2SAT 98
--- NOTE | 2024-11-09 22:13 | ED.GENADUL_ITS ---
Discharge Plan Disposition Patient Disposition: Home Condition: Good Discharge Details Clinical Impression: Encounter for assessment of Vallecillo catheter Primary Care Provider: Fernando Koehler ED Provider: Erickson Baldwin Home Meds and New Rx's Prescriptions: No Action lisinopril 20 mg tablet 20 mg PO HS triamcinolone acetonide 0.1 % cream 1 applic topical BID PRN oxybutynin chloride 10 mg tablet extended release 24hr 10 mg PO DAILY atorvastatin 20 mg tablet 20 mg PO HS multivitamin [Daily Multi-Vitamin] 1 EACH tablet 1 tab PO DAILY aspirin [Aspir-81] 81 MG tablet,delayed release (DR/EC) 81 mg PO DAILY naproxen sodium [Aleve] 220 MG tablet 220 mg PO DAILY PRN cholecalciferol (vitamin D3) [Vitamin D3] 1,000 UNIT capsule 1 cap PO DAILY bupropion HCl 300 mg tablet extended release 24 hr 300 mg PO DAILY Patient Comments: TAKE ONE TABLET BY MOUTH EVERY DAY [id number] 25,000-85,000- 136,000 unit capsule,delayed release(DR/EC) 2 cap PO TID Patient Comments: 2 caps w/ regular meal and 1 cap w/ snacks acetaminophen 325 mg capsule See Rx Instructions PO .COMPLEX PRN Rx Instructions: 975mg orally Q8h PRN; clopidogrel 75 mg tablet 75 mg PO DAILY Patient Comments: TAKE ONE TABLET BY MOUTH EVERY DAY olanzapine 2.5 mg tablet 2.5 mg PO QHS Patient Comments: TAKE ONE TABLET BY MOUTH AT BEDTIME omeprazole 40 mg capsule,delayed release(DR/EC) 40 mg PO DAILY Patient Comments: TAKE ONE CAPSULE BY MOUTH EVERY DAY cefpodoxime 200 mg tablet 200 mg PO BID Qty: 14 0RF Rx Instructions: must administer with a meal/food; begin taking evening of 4/6 tamsulosin 0.4 mg capsule 0.4 mg PO QHS Qty: 14 0RF Discharge Instructions Additional Instructions: At this time your Vallecillo catheter shows no evidence of leaking or complication. It is draining well, and there is no evidence of retention. Please continue to monitor your symptoms closely. Do not hesitate to call me with any further concerns. If you notice any worsening of your symptoms, or any new symptoms such as vomiting, diarrhea, fever, chills, shortness of breath, chest pain, numbness, weakness, or fainting , please return immediately to the emergency de partment for reevaluation. Please follow up with your primary care provider as soon as possible for reassessment and reevaluation. As always, it was a pleasure participating in your medical care today. Referrals: Fernando Koehler MD [Primary Care Provider] - [facility] General Date/Time Provider Initiated Documentation: 11/09/24 22:04 . HPI Narrative: 74-year-old male with a chronic catheter, who presents today for leaking of the Vallecillo catheter bag. Patient had a Vallecillo catheter that was replaced last week. He had been functioning well, until tonight he noticed some wetness on the lower aspect of his right pants which was the leg that his Vallecillo catheter bag was on. He denies any fever, chills, spasm in his bladder, pain around the Valleicllo site or in his suprapubic region. No other complaints other than just the wetness noted on his pants. He did not actively see where the leak was coming from. No other complaints at this time. Related Data Home Medications ?Medication ?Instructions ?Recorded ?Confirmed aspirin 81 mg tablet,delayed 81 mg PO DAILY 03/09/14 11/09/24 release (Aspir-) multivitamin (Daily Multi-Vitamin 1 tab PO DAILY 03/09/14 11/09/24 tablet) naproxen sodium 220 mg tablet 220 mg PO DAILY PRN 03/09/14 11/09/24 (Aleve) cholecalciferol (vitamin D3) 25 1 cap PO DAILY 06/25/15 11/09/24 mcg (1,000 unit) capsule (Vitamin D3) atorvastatin 20 mg tablet 20 mg PO HS 02/09/22 11/09/24 oxybutynin chloride 10 mg 10 mg PO DAILY 02/09/22 11/09/24 tablet,extended release 24 hr triamcinolone acetonide 0.1 % 1 applic topical BID PRN 02/09/22 11/09/24 topical cream lisinopril 20 mg tablet 20 mg PO HS 02/27/22 11/09/24 bupropion HCl 300 mg 24 hr tablet, 300 mg PO DAILY 08/28/23 11/09/24 extended release [id number] 2 cap PO TID 08/28/23 11/09/24 25,000-85,000-136,000 unit capsule,delayed rel acetaminophen 325 mg capsule See Rx Instructions PO .COMPLEX PRN 09/04/23 11/09/24 clopidogrel 75 mg tablet 75 mg PO DAILY 10/25/24 11/09/24 olanzapine 2.5 mg tablet 2.5 mg PO QHS 10/25/24 11/09/24 omeprazole 40 mg capsule,delayed 40 mg PO DAILY 10/25/24 11/09/24 release cefpodoxime 200 mg tablet 200 mg PO BID #14 tabs 10/26/24 11/09/24 tamsulosin 0.4 mg capsule 0.4 mg PO QHS #14 caps 10/26/24 11/09/24 Previous Rx's ?Medication ?Instructions ?Recorded cefpodoxime 200 mg tablet 200 mg PO BID #14 tabs 10/26/24 tamsulosin 0.4 mg capsule 0.4 mg PO QHS #14 caps 10/26/24 Allergies Allergy/AdvReac Type Severity Reaction Status Date / Time mirabegron (From Myrbetriq) AdvReac elevated Verified 11/09/24 22:01 blood pressure General Stated Complaint: Urinary SAIMA: 4 Exam Narrative Exam Narrative: 1.Const: Well-nourished, Well-developed, appearing stated age 2.Eyes: PERRL, no conjunctival injection, and symmetrical lids. 3.ENT: Atraumatic external nose and ears. Moist MM. Neck: Symmetric, trachea midline, No thyromegaly. 4.CVS: +S1/S2, Peripheral pulses 2+ and equal in all extremities. Brisk capillary refill in all extremities. 5.RESP: Unlabored respiratory effort. Clear to auscultation bilaterally. No wheezes rales or rhonchi 6.GI: Soft, Nontender/Nondistended, No hepatosplenomegaly. No guarding or rebound. Vallecillo catheter in place in the penis. No active bleeding. No purulent drainage or discharge. No leaking around the catheter from the penis. No evidence of bladder spasm. Underwear is otherwise dry, and diaper is not soaked. 7.MSK: Normocephalic/Atraumatic, Extremities w/o deformity or ttp No cyanosis or clubbing, Normal movement of all extremities 8.Skin: Warm, Dry. No rashes or lesions. 9.Neuro: ceramic engineer II-XII grossly intact. Sensation grossly intact, no focal neurologic deficits. 10.Psych: (AAO) x3. Appropriate mood and affect Course Vital Signs Vital signs: Vital Signs Temperature 36.4 C 11/09/24 21:51 Pulse 75 11/09/24 21:51 Respiratory Rate 13 11/09/24 21:51 Blood Pressure 145/70 H 11/09/24 21:51 Pulse Oximetry 99 11/09/24 21:51 Temperature 36.4 C 11/09/24 22:00 Temperature Source Temporal Artery Scan 11/09/24 22:00 Pulse 80 11/09/24 22:00 Respiratory Rate 14 11/09/24 22:00 Blood Pressure 121/78 11/09/24 22:00 Pulse Oximetry 98 11/09/24 22:00 Oxygen Delivery Method Room Air 11/09/24 22:00 Oxygen Flow Rate 0 11/09/24 21:51 Pain Level 0 11/09/24 21:59 Medical Decision Making 74-year-old male with a chronic catheter, who presents today for leaking of the Vallecillo catheter bag. Patient had a Vallecillo catheter that was replaced last week. He had been functioning well, until tonight he noticed some wetness on the lower aspect of his right pants which was the leg that his Vallecillo catheter bag was on. He denies any fever, chills, spasm in his bladder, pain around the Vallecillo site or in his suprapubic region. No other complaints other than just the wetness noted on his pants. He did not actively see where the leak was coming from. No other complaints at this time. Physical exam demonstrates Vallecillo catheter in place in the penis. No active bleeding. No purulent drainage or discharge. No leaking around the catheter from the penis. No evidence of bladder spasm. Underwear is otherwise dry, and diaper is not soaked. Evaluation of the bladder bag and tubing does not show any evidence of sig nificant abnormality or leak. Tube was clamped, and pressure was placed on the Vallecillo bag to try to elicit leaking. There was a small amount of looseness over the connection between the tube and the bag itself, but there was no leaking present. No leaking anywhere for that matter. Bladder scan demonstrates no urine in the bladder, no leaking around the Vallecillo catheter at the penis. There is no pain or spasm to suggest bladder spasm. All connections were tightened. No other abnormalities noted. Uncertain as to what caused the initial leaking on his pants that he was talking about, however at this time what ever leak may have been present since seem to have resolved. I did offer the patient to have the Vallecillo catheter and all hardware replaced, but he has declined. Patient will be discharged home. Discussed red flags for which return. I have extensively reviewed the treatment plan and discharge instructions with the patient. I have addressed all patient concerns at this time. The patient was made aware of what symptoms to monitor for that would warrant a return to the emergency department. Discussed the plan with the patient, they demonstrate verbal understanding and agreement with our assessment and plan at this time. The documentation in this chart was dictated using [employer] dictation software. Please excuse any dictation errors. Quality:SDOH Health Related Social Needs: Health related social needs food insecurity (Z59.41) PFSH All Active Problems (Updated 11/09/24 @ 22:15 by Erickson Baldwin DO) Encounter for assessment of Vallecillo catheter (Acute) Complication of Vallecillo catheter (Acute) UTI (urinary tract infection) (Acute) Acute urinary retention (Acute) Situational anxiety (Acute) Dysthymia (Acute) Generalized social phobia (Acute) Alcohol abuse (Chronic) Chronic back pain (Acute) Sleep disturbance (Acute) Urinary incontinence (Acute) Rotator cuff syndrome (Acute) Nocturnal leg cramps (Acute) Memory impairment (Acute) Orthostasis (Acute) Urinary hesitancy (Acute) Medical History (Updated 11/09/24 @ 22:15 by Erickson Baldwin DO) Prostate cancer Treated with radiation therapy Hypertension Obesity (BMI 30-39.9) Hyperlipidemia Erectile dysfunction Surgical History Colonoscopy - IV Sedation Social History Smoking/Tobacco Use Status: Former Tobacco Use Quit Date: 07/23/68 Smoking risk assessment performed?: Yes Alcohol Intake: current Alcohol Intake frequency: 0-2 drinks per day Alcohol type: hard liquor Drug use: Never Substance use type: does not use Housing: house Do you feel safe at home: Yes Do you feel safe in your relationship?: Yes PAWSS Have you Been Recently Intoxicated or Drunk Within the Last 30 days?: No Have you Ever Experienced Previous Episodes of Alcohol Withdrawal?: Yes Have you ever Experienced Withdrawal Seizures?: No Have you ever Experienced Delirium Tremens(DT)s?: Yes Have you ever undergone Alcohol Rehabilitation Treatment (i.e, inpt ot outpatient treatment programs)?: No Have you ever Experienced Blackouts?: No Have you ever Combined Alcohol with other Downers within the last 90 days?: No Have you ever Combined Alcohol with any other Substance of Abuse during the last 90 days?: No Positive Blood Alcohol level on Presentation? [PCS.BAL]: No Result: 2
[2024-11-09 22:22] VITALS: BP 145/70; PULSE 75; RESP 13; TEMP 36.6; O2SAT 99
== END 2024-11-09 22:48 | disposition home or self-care (01) ==
PROVIDERS: Emergency Provider Student in an Organized Health Care Education/Training Program; PCP Family Medicine
DX: Z71.1 Person with feared health complaint in whom no diagnosis is made (principal)
CPT/HCPCS: 51798; 99283

== ENCOUNTER → 2024-11-19 08:04 | Outpatient (BNVA) | payer MEDICARE, SELFPAY | PROVIDERS: PCP Family Medicine; Referring Provider Family Medicine; Visit Provider Nurse Practitioner Gerontology | DX: R39.9 Unspecified symptoms and signs involving the genitourinary system (principal); R33.8 Other retention of urine; C61 Malignant neoplasm of prostate | CPT/HCPCS: 51798; 99214 ==

== ENCOUNTER 2024-12-08 15:05 | Outpatient (REF) | payer MEDICARE, SELFPAY ==
[2024-12-08 16:39] LABS: Vitamin D 25 Total 48 ng/mL (30-100)
== END 2024-12-08 15:06 | disposition home or self-care (01) ==
LOC: NCHCN 15:05
PROVIDERS: PCP Family Medicine; Visit Provider Family Medicine
DX: Z90.410 Acquired total absence of pancreas (principal)
CPT/HCPCS: 82306

== ENCOUNTER 2024-12-26 00:42 | Outpatient (CLI) | payer MEDICARE, SELFPAY ==
[2024-12-26 11:46] LABS: Abs Immature Grans 0.01 10^3/uL (0.0-0.06); Absolute Basophil Count 0.03 10^3/uL (0.0-0.2); Absolute Lymphocyte Count 0.55 10^3/uL (1.2-3.4); Absolute Monocyte Count 0.44 10^3/uL (0.1-0.8); Absolute Neutrophil Count 2.02 10^3/uL (1.2-6.7); Eosinophils % 3.2 %; HCT 30.9 % (40.0-50.0); HGB 10.5 g/dL (13.5-17.5); Immature Grans % 0.3 %; Lymphocytes % 17.5 %; MCH 33.5 pg (27.0-33.0); MCV 99 fL (80-95); MPV 9.9 fL (8.0-11.0); Platelet Count 148 10^3/uL (130-400); RBC 3.13 10^6/uL (4.36-5.78); RDW 15.8 % (11.8-14.1); RDW-SD 57.3 fL; WBC 3.15 10^3/uL (4.4-10.8)
[2024-12-26 12:13] LABS: ALT 59 U/L (16-63); AST 51 U/L (15-37); Albumin 3.1 g/dL (3.4-5.0); Alkaline Phosphatase 169 U/L (46-116); BUN 15 mg/dL (7-18); Bilirubin, Total 0.8 mg/dL (0.2-1.0); Calcium 8.5 mg/dL (8.5-10.1); Chloride 104 mmol/L (98-107); Estimated GFR 78.49 (mL/min/1.73m2); Folate > 20.0 ng/mL (8.6-20.0); Glucose 86 mg/dL (74-106); Potassium 3.8 mmol/L (3.5-5.1); Sodium 140 mmol/L (136-145); Total Protein 6.9 g/dL (6.4-8.2)
[2024-12-26 12:22] LABS: Vitamin D 25 Total 44 ng/mL (30-100)
[2024-12-26] MEDS: Barium Sulfate 2% W/V-Berry Smoothie 450 ML BTL PO ×2 (12:47)
[2024-12-26] MEDS: Omnipaque 350 MG/ML 100 ML BTL IJ (12:49)
[2024-12-26] MEDS: Normal Saline - Diluent 50 ML VIAL IJ (12:50)
--- NOTE | 2024-12-26 13:12 | DI.CT_ITS ---
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 TECHNIQUE: Imaging Protocol: Axial computed tomography images with coronal and sagittal reformatted images were created and reviewed CONTRAST MATERIAL: Intravenous: Omnipaque 350 Contrast volume:100 ml Oral: Yes. Oral contrast was also administered for bowel opacification COMPARISON: CT CT CHEST/ABD/PEL W from 06/17/2024 FINDINGS: CHEST: LUNGS: There is some elevation the right hemidiaphragm again noted and again noted is some overlying atelectasis in the right middle lobe, unchanged. Also in the posterior basal segment of the right lo wer lobe. There are no new confluent infiltrates nor pleural effusions and there are no new ominous pulmonary nodules. No new significant findings in the trachea and mainstem bronchi. MEDIASTINUM: There is no hilar nor mediastinal adenopathy. Partially visualized thyroid unremarkable. CARDIAC: Heart size upper normal. No pericardial effusion.Caliber of the thoracic aorta is within no rmal limits. OSSEOUS: No significant osseous lesions.. ABDOMEN: Again noted is evidence of Whipple's procedure including partial gastrectomy. Surgical removal of th e pancreatic head and neck and there is also an endo biliary stent which appears unchanged in positio n, with its distal aspect located just to the right of the midline behind the pancreatic body. There is no abnormal fluid collection at this level. No enlarged lymph nodes seen. LIVER: There are no focal hepatic lesions nor dilatation of intrahepatic ducts. GALLBLADDER/BILIARY: Gallbladder is again noted be surgically absent. CBD stent as above. PANCREAS: Pancreatic head, uncinate process, and neck have been removed and appears to be anastomosis to small bowel loop at this level. The pancreatic duct is not dilated and there is no peripancreati c streaking nor fluid collections. SPLEEN: Spleen is not enlarged. There are no intrasplenic lesions. Splenic and portal veins are noble nt. ADRENALS: There are no significant adrenal masses. KIDNEYS: No calculi nor hydronephrosis. No solid renal masses. No cysts evident. ABDOMINAL AORTA: Abdominal aorta is not enlarged. LYMPH NODES: No increasing retroperitoneal nor para-aortic adenopathy. ABDOMINAL WALL: No evidence of significant anterior abdominal wall nor inguinal hernia. GI: There is no evidence of bowel obstruction. PELVIS: LYMPH NODES: There is no intrapelvic nor inguinal adenopathy. GI: No evidence of appendicitis.Abundant fecal material in the sigmoid but no evidence of significant diverticular disease. URINARY BLADDER: There is diffuse thickening of the urinary bladder wall again noted. REPRODUCTIVE: The radioactive seeds in the prostate gland again noted. No obturator adenopathy nor a denopathy elsewhere in the pelvis. OSSEOUS: Chronic disc space narrowing L5-S1. Mild anterolisthesis of L4 upon L5 related to facet art hropathy. No lytic osseous lesions. No blastic osseous lesions. IMPRESSION: 1. 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 2. There is no evidence of significant intrathoracic findings. No lung nodules nor intrathoracic brittany nopathy. 3. No evidence of metastatic disease in the abdomen pelvis. No lymphadenopathy. No ascites. RADIATION DOSE DELIVERED: 671.91mGy.cm Total DLP DATA REPOSITORY: All CT scans at this facility are submitted to the National Radiology Data Registry (NRDR) Dose Index Registry (DIR) with the [employer] (A[employer]). RADIATION OPTIMIZATION: All CT scans at this facility use at least one of these dose optimization te chniques: automated exposure control; mA and/or kV adjustment per patient size (includes targeted exa ms where dose is matched to clinical indication); or iterative reconstruction.
[2024-12-26 20:33] LABS: CA 19-9 22 U/mL (<35)
[2024-12-29 16:39] LABS: Vitamin E, Serum 11.4 mg/L (5.5 - 17.0)
[2024-12-31 00:19] LABS: Free Retinol (Vitamin A) 34.7 mcg/dL (32.5-78.0)
[2024-12-31 00:20] LABS: Thiamine (Vitamin B1), WB 159 nmol/L (70-180)
== END 2024-12-26 01:02 ==
LOC: DI 00:42
PROVIDERS: PCP Family Medicine; Visit Provider Nurse Practitioner Family
DX: E55.9 Vitamin D deficiency, unspecified (principal); Z90.410 Acquired total absence of pancreas; C22.1 Intrahepatic bile duct carcinoma
CPT/HCPCS: 74177; 80053; 82306; 71260; 82746; 84425; 84446; 84590; 85025; 86301; J3490

== ENCOUNTER 2025-01-08 14:16 | Outpatient (CLI) | payer MEDICARE, SELFPAY ==
[2025-01-08 13:25] LABS: Abs Immature Grans 0.01 10^3/uL (0.0-0.06); Absolute Basophil Count 0.03 10^3/uL (0.0-0.2); Absolute Lymphocyte Count 0.53 10^3/uL (1.2-3.4); Absolute Monocyte Count 0.51 10^3/uL (0.1-0.8); Absolute Neutrophil Count 2.85 10^3/uL (1.2-6.7); Basophils % 0.7 %; Eosinophils % 2.5 %; HCT 32.2 % (40.0-50.0); HGB 10.7 g/dL (13.5-17.5); Immature Grans % 0.2 %; Lymphocytes % 13.2 %; MCH 33.1 pg (27.0-33.0); MCHC 33.2 % (32.0-36.0); MCV 100 fL (80-95); MPV 9.1 fL (8.0-11.0); Monocytes % 12.7 %; Neutrophils % 70.7 %; Platelet Count 157 10^3/uL (130-400); RBC 3.23 10^6/uL (4.36-5.78); RDW 15.9 % (11.8-14.1); RDW-SD 58.7 fL; Reticulocyte 1.3 % (0.5-2.4); WBC 4.03 10^3/uL (4.4-10.8)
[2025-01-08 14:46] LABS: Ferritin 25 ng/mL (26-388); Vitamin B12 486 pg/mL (193-986)
[2025-01-08 15:00] LABS: Iron 57 ug/dL (65-175); Total Iron Binding Capacity 283 ug/dL (250-450); Transferrin Sat 20 % (20-55)
== END 2025-01-08 14:17 | disposition home or self-care (01) ==
LOC: LBO 14:17
PROVIDERS: PCP Family Medicine; Visit Provider Internal Medicine Hematology & Oncology
DX: D53.9 Nutritional anemia, unspecified (principal)
CPT/HCPCS: 36415; 82607; 82728; 83540; 83550; 85025; 85045

== ENCOUNTER 2025-04-23 04:01 | Outpatient (CLI) | payer MEDICARE, SELFPAY ==
[2025-04-23 08:28] LABS: Abs Immature Grans 0.01 10^3/uL (0.0-0.06); HCT 33.0 % (40.0-50.0); HGB 10.8 g/dL (13.5-17.5); Immature Grans % 0.4 %; MCH 32.3 pg (27.0-33.0); MCHC 32.7 % (32.0-36.0); MCV 99 fL (80-95); MPV 9.1 fL (8.0-11.0); Platelet Count 171 10^3/uL (130-400); RBC 3.34 10^6/uL (4.36-5.78); RDW 17.3 % (11.8-14.1); RDW-SD 63.8 fL; WBC 2.67 10^3/uL (4.4-10.8)
[2025-04-23 08:59] LABS: Iron 34 ug/dL (65-175); Total Iron Binding Capacity 326 ug/dL (250-450); Transferrin Sat 10 % (20-55)
[2025-04-23 09:14] LABS: ALT 36 U/L (16-63); AST 52 U/L (15-37); Albumin 3.1 g/dL (3.4-5.0); Alkaline Phosphatase 155 U/L (46-116); Anion Gap 9.2 mmol/L (3-11); BUN 15 mg/dL (7-18); Bilirubin, Total 0.4 mg/dL (0.2-1.0); CO2 26.8 mmol/L (21.0-32.0); Calcium 8.1 mg/dL (8.5-10.1); Chloride 108 mmol/L (98-107); Estimated GFR 88.51 (mL/min/1.73m2); Ferritin 19 ng/mL (26-388); Glucose 64 mg/dL (74-106); Potassium 3.8 mmol/L (3.5-5.1); Sodium 144 mmol/L (136-145); Total Protein 6.6 g/dL (6.4-8.2)
[2025-04-24 15:11] LABS: CA 19-9 24 U/mL (<35)
== END 2025-04-23 04:02 | disposition home or self-care (01) ==
PROVIDERS: PCP Family Medicine; Visit Provider Internal Medicine Hematology & Oncology
DX: C22.1 Intrahepatic bile duct carcinoma (principal)
CPT/HCPCS: 36415; 80053; 82728; 83540; 83550; 85025; 86301

== ENCOUNTER 2025-06-02 08:24 | Outpatient (CLI) | payer MEDICARE, SELFPAY ==
[2025-06-02 08:27] LABS: Abs Immature Grans 0.01 10^3/uL (0.0-0.06); HCT 34.2 % (40.0-50.0); HGB 11.2 g/dL (13.5-17.5); Immature Grans % 0.3 %; MCH 31.6 pg (27.0-33.0); MCHC 32.7 % (32.0-36.0); MCV 97 fL (80-95); MPV 9.3 fL (8.0-11.0); Platelet Count 159 10^3/uL (130-400); RBC 3.54 10^6/uL (4.36-5.78); RDW 17.1 % (11.8-14.1); RDW-SD 60.5 fL; WBC 2.87 10^3/uL (4.4-10.8)
[2025-06-02 08:46] LABS: Iron 106 ug/dL (65-175); Total Iron Binding Capacity 321 ug/dL (250-450); Transferrin Sat 33 % (20-55)
[2025-06-02 09:05] LABS: Ferritin 23 ng/mL (26-388); Vitamin B12 420 pg/mL (193-986)
== END 2025-06-02 08:25 | disposition home or self-care (01) ==
LOC: LBO 08:24
PROVIDERS: PCP Family Medicine; Visit Provider Internal Medicine Hematology & Oncology
DX: D53.9 Nutritional anemia, unspecified (principal)
CPT/HCPCS: 36415; 82607; 82728; 83540; 83550; 85025; 85045

== ENCOUNTER 2025-06-23 13:37 | Outpatient (REF) | payer MEDICARE, SELFPAY ==
[2025-06-23 15:41] LABS: HCT 35.2 % (40.0-50.0); HGB 11.4 g/dL (13.5-17.5); MCH 31.6 pg (27.0-33.0); MCHC 32.4 % (32.0-36.0); MCV 98 fL (80-95); MPV 10.1 fL (8.0-11.0); Platelet Count 217 10^3/uL (130-400); RBC 3.61 10^6/uL (4.36-5.78); RDW 16.3 % (11.8-14.1); RDW-SD 58.2 fL; WBC 4.64 10^3/uL (4.4-10.8)
[2025-06-23 16:20] LABS: ALT 39 U/L (10-49); AST 57 U/L (<34); Albumin 3.7 g/dL (3.2-5.0); Alkaline Phosphatase 152 U/L (46-116); Anion Gap 5.9 mmol/L (3-11); BUN 14 mg/dL (9-23); Bilirubin, Total 0.40 mg/dL (0.2-1.2); CO2 29.1 mmol/L (20.0-31.0); Calcium 8.5 mg/dL (8.3-10.6); Chloride 106 mmol/L (98-107); Glucose 71 mg/dL (74-106); Potassium 5.1 mmol/L (3.5-5.1); Sodium 141 mmol/L (136-145); Total Protein 6.6 g/dL (5.7-8.2)
[2025-06-23 16:23] LABS: TSH (W/Ref FT4) 0.88 uIU/mL (0.55-4.78)
== END 2025-06-23 13:38 | disposition home or self-care (01) ==
LOC: NCHCN 13:37
PROVIDERS: PCP Family Medicine; Visit Provider Family Medicine
DX: I48.91 Unspecified atrial fibrillation (principal)
CPT/HCPCS: 80053; 85027; 84443

== ENCOUNTER → 2025-06-25 00:15 | Outpatient (CLI) | payer MEDICARE, SELFPAY ==
--- NOTE | 2025-06-25 | DI.CT_ITS ---
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 Lung Computer Aided Detection (CAD) was utilized. CONTRAST MATERIAL: Intravenous: Omnipaque 350 contrast volume:75 mL Oral: Yes COMPARISON: CT CT ABDOMEN PELVIS W from 08/28/[address] CHEST/ABD/PEL W from 12/26/2024 FINDINGS: CHEST: Tracheobronchial tree: Patent where visualized. No evidence of bronchiectasis. Pulmonary parenchyma: No consolidation or dominant measurable mass. No architectural distortion. Visualized thyroid gland: There is a 9 mm hypodense nodule in the inferior pole of the right lobe of the thyroid gland. No follow-up is recommended. Mediastinum and Michelle: No dominant adenopathy or fluid collection. The esophagus is unremarkable. Pleura: No effusion or pneumothorax. Heart: Mildly enlarged heart. There are coronary artery calcifications present. No pericardial effusion. Pulmonary arteries: No pulmonary emboli are identified. Aorta: Thoracic aorta non-dilated. There is no evidence of dissection. Atherosclerotic calcifications are present. Lymph nodes: Within normal limits. Soft tissues: Unremarkable. Bones:Within normal limits for the patient's age. There is a nonunited fracture of the posterior right 8th rib which has occurred since the prior examination. ABDOMEN: There again seen postsurgical changes of a Whipple's procedure. Liver: There is decreased attenuation of the liver suggesting fatty infiltration. No measurable mass. Portal, Superior Mesenteric, and Splenic Veins: Unremarkable. Gallbladder and Biliary Tract: The gallbladder is absent. There is no significant biliary ductal dilatation. Pancreas: There is again seen resection of the head of the pancreas. There is atrophy of the body and tail of the pancreas. Spleen: Normal. Adrenals: No masses seen. Kidneys: Normal size, contour and axis. There looks to be a small 2 mm nonobstructing stone in the right kidney. There are no suspicious renal masses. Abdominal Aorta: Abdominal portion non-dilated. Atherosclerotic calcification is present. Bowel: There is stool seen throughout the colon suggesting constipation. There is no evidence of bowel obstruction or bowel wall thickening. Postsurgical changes are seen in the stomach and proximal duodenum. There is no evidence of appendicitis. Peritoneal Cavity: No ascites, collection or mesenteric inflammatory response. No free air. Lymph Nodes: Within normal limits. Bones: Within normal limits for the patient's age. Soft Tissues: Unremarkable. PELVIS: Bladder: Symmetric distention, no gross wall thickening. Reproductive Organs: Prostatic seeds are seen. Lymph Nodes: Within normal limits. Bones: Within normal limits. IMPRESSION: 1. There is no evidence of abdominal or pelvic metastatic disease. 2. Stable postsurgical changes of a Whipple's procedure. 3. No evidence of thoracic metastatic disease. RADIATION DOSE DELIVERED: 750.56mGy.cm Total DLP DATA REPOSITORY: All CT scans at this facility are submitted to the National Radiology Data Registry (NRDR) Dose Index Registry (DIR) with the [employer] (ACR). RADIATION OPTIMIZATION: All CT scans at this facility use at least one of these dose optimization techniques: automated exposure control; mA and/or kV adjustment per patient size (includes targeted exams where dose is matched to clinical indication); or iterative reconstruction.
[2025-06-25] MEDS: Barium Sulfate 2% W/V-Creamy Vanilla Smoothie 450 ML BTL PO (13:39)
[2025-06-25] MEDS: Barium Sulfate 2% W/V-Berry Smoothie 450 ML BTL PO (13:39)
[2025-06-25] MEDS: Normal Saline - Diluent 50 ML VIAL IJ (15:45)
[2025-06-25] MEDS: Omnipaque 350 MG/ML 100 ML BTL IJ (15:45)
[2025-06-25] MEDS: Normal Saline Flush 10 ML SYR IVP (15:46)
[2025-06-26 11:18] LABS: CA 19-9 17 U/mL (<35)
== END ==
LOC: DI 00:15
PROVIDERS: PCP Family Medicine; Visit Provider Internal Medicine Hematology & Oncology
DX: C22.1 Intrahepatic bile duct carcinoma (principal); D50.8 Other iron deficiency anemias
CPT/HCPCS: 74177; 80053; 71260; 82728; 83540; 83550; 85025; 86301; J3490

== ENCOUNTER 2025-06-25 16:46 | Outpatient (CLI) | payer MEDICARE, SELFPAY ==
[2025-06-25 13:36] LABS: Abs Immature Grans 0.01 10^3/uL (0.0-0.06); HCT 35.6 % (40.0-50.0); HGB 11.6 g/dL (13.5-17.5); Immature Grans % 0.2 %; MCH 31.6 pg (27.0-33.0); MCHC 32.6 % (32.0-36.0); MCV 97 fL (80-95); MPV 9.0 fL (8.0-11.0); Platelet Count 182 10^3/uL (130-400); RBC 3.67 10^6/uL (4.36-5.78); RDW 16.5 % (11.8-14.1); RDW-SD 58.5 fL; WBC 4.11 10^3/uL (4.4-10.8)
[2025-06-25 14:29] LABS: Iron 76 ug/dL (65-175); Total Iron Binding Capacity 350 ug/dL (250-425); Transferrin Sat 22 % (20-55)
[2025-06-25 14:30] LABS: ALT 39 U/L (10-49); AST 61 U/L (<34); Albumin 3.8 g/dL (3.2-5.0); Alkaline Phosphatase 152 U/L (46-116); Anion Gap 7 mmol/L (3-11); BUN 18 mg/dL (9-23); Bilirubin, Total 0.60 mg/dL (0.2-1.2); CO2 29.0 mmol/L (20.0-31.0); Calcium 8.9 mg/dL (8.3-10.6); Chloride 107 mmol/L (98-107); Glucose 86 mg/dL (74-106); Potassium 4.6 mmol/L (3.5-5.1); Sodium 143 mmol/L (136-145); Total Protein 7.0 g/dL (5.7-8.2)
[2025-06-25 14:35] LABS: Ferritin 15 ng/mL (11-307)
== END 2025-06-25 16:47 | disposition home or self-care (01) ==
LOC: LBO 16:47
PROVIDERS: PCP Family Medicine; Visit Provider Internal Medicine Hematology & Oncology
DX: C22.1 Intrahepatic bile duct carcinoma (principal); D50.8 Other iron deficiency anemias
CPT/HCPCS: 36415; 74177; 80053; 71260; 82728; 83540; 83550; 85025; 86301; J3490

== ENCOUNTER 2025-07-09 08:13 | Outpatient (CLI) | payer MEDICARE, SELFPAY ==
[2025-07-09 12:01] LABS: Total Iron Binding Capacity 352 ug/dL (250-425)
[2025-07-09 12:07] LABS: Iron 88 ug/dL (65-175); Transferrin Sat 25 % (20-55)
[2025-07-09 12:10] LABS: ALT 41 U/L (10-49); AST 61 U/L (<34); Albumin 3.8 g/dL (3.2-5.0); Alkaline Phosphatase 148 U/L (46-116); Anion Gap 8.6 mmol/L (3-11); BUN 14 mg/dL (9-23); Bilirubin, Total 0.6 mg/dL (0.2-1.2); CO2 28.4 mmol/L (20.0-31.0); Calcium 8.7 mg/dL (8.3-10.6); Chloride 105 mmol/L (98-107); Ferritin 20 ng/mL (11-307); Glucose 93 mg/dL (74-106); Potassium 4.8 mmol/L (3.5-5.1); Sodium 142 mmol/L (136-145); Total Protein 6.9 g/dL (5.7-8.2)
[2025-07-09 15:46] LABS: HCT 37.6 % (40.0-50.0); HGB 12.5 g/dL (13.5-17.5); MCH 32.6 pg (27.0-33.0); MCHC 33.2 % (32.0-36.0); MCV 98 fL (80-95); MPV 9.5 fL (8.0-11.0); Platelet Count 189 10^3/uL (130-400); RBC 3.84 10^6/uL (4.36-5.78); RDW 16.0 % (11.8-14.1); RDW-SD 58.1 fL; WBC 4.09 10^3/uL (4.4-10.8)
[2025-07-09 15:47] LABS: Abs Immature Grans 0.00 10^3/uL (0.0-0.06); Immature Grans % 0.0 %
== END 2025-07-09 08:14 | disposition home or self-care (01) ==
LOC: LBO 08:13
PROVIDERS: PCP Family Medicine; Visit Provider Internal Medicine Hematology & Oncology
DX: C22.1 Intrahepatic bile duct carcinoma (principal); D50.8 Other iron deficiency anemias
CPT/HCPCS: 36415; 80053; 82728; 83540; 83550; 85025

== ENCOUNTER → 2025-07-14 00:43 | Outpatient (CLI) | payer MEDICARE, SELFPAY ==
--- NOTE | 2025-07-14 | DI.US_ITS ---
APPROVED REPORT EXAM: Comprehensive 2D, Doppler, and color-flow Echocardiogram [facility] Radio Operator: Maria R Thompson RDCS (AE) Indications: Unspecified atrial fibrillation Other Information Study Quality: Adequate Conclusion Normal left ventricular wall thickness and chamber size. Ejection fraction is 55%. There are no segmental wall motion abnormalities Normal right ventricular size and function Normal right atrial size. Mildly dilated left atrium Aortic valve is calcified and probably trileaflet. There is mild aortic stenosis with a mean gradient of 18 mmHg. There is mild aortic regurgitation Normal mitral valve with moderate regurgitation Mild tricuspid regurgitation. Estimated right ventricular systolic pressure is 40 mmHg Wall motion Left Ventricle The left ventricle is normal size. The left ventricular systolic function is normal. The left ventricular ejection fraction is within the normal range. There is normal left ventricular wall thickness. There is normal LV segmental wall motion. There is no ventricular septal defect visualized. LVEF is 55%. Right Ventricle The right ventricle is normal size. The right ventricular systolic function is normal. Atria The left atrium is mildly dilated The right atrium size is normal. The interatrial septum is intact with no evidence for an atrial septal defect. Aortic Valve Aortic valve is calcified. Aortic valve is probably trileaflet. Mild aortic stenosis. Mean gradient is 18 mmHg. Calculated aortic valve area is 1.2 cm?? Mild aortic regurgitation. Mitral Valve The mitral valve is normal in structure. No evidence of mitral valve stenosis. Moderate mitral regurgitation Tricuspid Valve The tricuspid valve is normal in structure. There is no tricuspid valve stenosis. Mild tricuspid regurgitation. The RVSP is 40.2 mmHg. Pulmonic Valve The pulmonary valve is normal in structure. There is no pulmonic valvular stenosis. Trace pulmonic regurgitation. Great Vessels The aortic root is normal in size. Ascending aorta is not well visualized. Aortic arch is normal in caliber. IVC is normal in size and collapses >50% with inspiration. Pericardium There is no pericardial effusion. 2D Dimensions IVSD d PLAX 1.00 cm M: 0.6-1.2 Ao Root d 3.74 cm M: 3.1 - 3.7 LVPW d PLAX 1.00 cm M: 0.6 - 1.2 LVID d PLAX 4.82 cm M: 4.2 - 5.8 LVDs 3.40 cm M: 2.5 - 4.0 LV EF Teichholz 56.5 % FS 29.59 % LV EDV (Teich) 108.3 mL LV ESV (Teich) 47.1 mL M-Mode TAPSE 2.11 cm (M/F) >1.7 Auto EF LV EDV A4C 90.7 mL LV EDV A2C 156.4 mL LV EDV BP 116.6 mL LV ESV A4C 40.9 mL LV ESV A2C 70.8 mL LV ESV BP 53.6 mL LVEF(%) A4C 55.0 % LVEF(%) A2C 54.7 % LVEF(%) BP 54.0 % LV SV A4C 49.9 ml LV SV A2C 85.6 ml LV SV BP 63.0 ml LV CO A4C 4.1 L/min LV CO A2C 7.5 L/min LV CO BP 5.8 L/min HR A4C 82.95 BPM HR A2C 87.17 BPM LV EDV Index (BP) LA Volume LA Length A4C 6.2 cm LA Length A2C 5.8 cm LA Area A4C s 26.89 cm2 LA Area A2C s 23.61 cm2 LA Vol A4C A-L 98.77 mL LA Vol A2C A-L 81.03 mL LA Vol Biplane A-L 92.3 mL LA Vol/BSA A4C A-L LA Vol/BSA A2C A-L LA Vol/BSA BP A-L 51.6 mL/m2 LA Vol A4C MOD 92.7 mL LA Vol A2C MOD 75.6 mL LA Vol BP MOD 85.0 mL RA Volume RA Area A4C 12.4 cm2 RA ESV A4C (A-L) 35.2mL RA Vol/BSA A4C A-L RA Length A4C 3.7 cm RA ESV A4C (MOD) 29.5mL LV Diastology MV E' medial 0.062 (>0.07 m/s) MV E Vmax 1.40 (0.4-1.3 m/s) MV E/E' MED 22.74 (<14) MV E' lateral 0.104 (>0.1 m/s) MV E/E' LAT 13.52 (<14) MV E' Average 0.083 m/s MV E/E'(average) 16.95 Aortic Valve AoV Vmax 2.65 m/s LVOT Vmax 0.86 m/s AoV Peak Grad 33.0 mmHg LVOT Peak Grad 3.0 mmHg AoV Area (Vmax) 1.16 cm2 LVOT VTI 0.152 m AoV VTI 0.545 m LVOT Mean Grad 1.7 mmHg AoV Mean Fidel. 2.02 m/s LVOT SV 54.24 mL AoV Mean Grad 17.9 mmHg LVOT Diam s 2.10 cm AoV Area (VTI) 0.99 cm2 AV Regurg Peak Gr. 28.11 mmHg Velocity Ratio 0.32 AR Decel [place] 0.8m/sec2 AR DT 3920 msec AR PHT 1137 msec AR Vmax 3.07 m/s Mitral Valve MV DT 335 (160-240 msec) MR Vmax 5.98 m/s MV Vmax TIPS 1.37 m/s MR VTI 1.690 m MV Mean Grad 2.5 (<2mmHg) MR Peak Grad 143.0 mmHg MV Area PHT 4.12 cm2 MR Mean Grad 84.7 mmHg MV VTI 0.290 m Pulmonary Valve PV Vmax 0.70 (0.5-1.5 m/s) RVOT Vmax 0.54 m/s PV Peak Grad 1.9 mmHg RVOT Peak Gr. 1.2 mmHg PV Mean Fidel 0.50 m/s RVOT VTI 0.098 m PV Mean Grad 1.1 mmHg RVOT Mean Gr. 0.6 mmHg Tricuspid Valve RA Pressure 3.00 mmHg TR Vmax 3.05 m/s TV S' 0.14 m/s TR Peak Grad 37.1 mmHg RVSP (TR) 40.2 mmHg
== END ==
LOC: DI 00:43
PROVIDERS: PCP Family Medicine; Visit Provider Family Medicine
DX: I48.91 Unspecified atrial fibrillation (principal)
CPT/HCPCS: 93306